=== PATIENT | male | born 1980 | race Caucasian/White ===

== ENCOUNTER 2023-11-06 14:43 | Inpatient (IN) | payer MEDICAID, SELFPAY ==
[2023-11-06] VITALS (9 sets, daily range): BP systolic 169–226; BP diastolic 37–152; PULSE 67–94; RESP 14–27; TEMP 36.4; O2SAT 95–96; BMI 32.1
--- NOTE | ~2023-11-06 | CT_ITS ---
EXAMINATION: CT angio head neck CLINICAL INFORMATION: Left-sided facial droop and dysarthria. COMPARISON: CT head 11/06/2023. TECHNIQUE: [employer] images were obtained. A CT angiogram of the head and neck was performed in the arterial phase after the intravenous administration of 70 mL Omnipaque 350. Pre and delayed postcontrast images of the head were also obtained. 3D images were processed on an independent workstation under concurrent supervision. Arterial stenoses are measured in accordance with NASCET criteria or similar method if applicable. This CT examination was performed using dose optimization techniques as appropriate, including one or more of the following: Automated exposure control, iterative reconstruction, and adjustment of technique factors (mA and/or kVp) according to patient size (this includes techniques or standardized protocols for targeted exams where dose is matched to indication/reason for exam). Fleischner Society criteria for the followup of incidental pulmonary nodules was implemented if appropriate. Total exam dose-length product 1665 mGy-cm FINDINGS: Head: Postcontrast images reveal no abnormal intracranial mass or enhancement. There is no intracranial mass effect or midline shift. Lateral and third ventricles are normal. No hydrocephalus. Scattered nonspecific foci of hypoattenuation are visualized within the periventricular white matter, basal ganglia, thalami, and amarjit that most likely represent a chronic manifestation of small vessel ischemia. [place]-white matter differentiation is otherwise preserved and there is no evidence of acute territorial infarct. The calvarium and skull base are intact. Mastoid air cells and middle ear cavities are well aerated. No active paranasal sinus disease. CT angiogram neck: The air arch apex is normal. Origins of major aortic branches are widely patent. Common carotid arteries and carotid bifurcations are patent. No stenosis of the extracranial internal carotid arteries. The right cervical vertebral artery is hypoplastic and appears occluded at its dural insertion. The dominant left vertebral artery is widely patent. CT angiogram head: Intracranial internal carotid arteries are patent. The left intradural vertebral artery is widely patent and continues as the basilar. Anterior, middle, and posterior cerebral artery complex is are normal. No intracranial or vessel occlusion. The timing of the contrast injection provides adequate opacification of the dural venous sinuses which are patent. Other: Soft tissues of the neck including the thyroid gland are normal. No pathologically enlarged cervical lymph nodes. No mediastinal or axillary adenopathy is visualized within the [id number] of this examination. There is no acute osseous finding. Specifically no worrisome lytic or blastic osseous lesion. Grossly no spinal canal compromise. Lung apices are clear. CT/CT angio head neck IMPRESSION: The right cervical vertebral artery is hypoplastic and appears occluded at its dural insertion. The dominant left vertebral artery is widely patent and continues as the basilar. Otherwise no stenosis of the cervical carotid or left vertebral arteries. No intracranial large vessel occlusion. There are scattered chronic small vessel ischemic changes within the periventricular white matter, basal ganglia, thalami, and amarjit. No evidence of acute territorial infarct or hemorrhage. No abnormal intracranial mass or enhancement.
--- NOTE | ~2023-11-06 | CT_ITS ---
EXAMINATION: CT HEAD WITHOUT CONTRAST CLINICAL INFORMATION: Left-sided facial droop. COMPARISON: None available. TECHNIQUE: Contiguous axial imaging was performed from the skull base to vertex without intravenous administration of contrast. This CT examination was performed using dose optimization techniques as appropriate, variously including the following: *Automated exposure control *Adjustment of mA and/or kV according to patient size (this includes techniques or standardized protocols for targeted exams where dose is matched to indication/reason for exam; i.e. extremities or head) *Use of iterative reconstruction technique DLP: 720 mGy-cm FINDINGS: There is no acute intra-axial, extra-axial bleed, masses or midline shift. There is subtle hypodensity in the left leyva radiata and the left external capsule suggesting lacunar infarction along the white matter tracts but no edema or mass effect. There is lacunar infarction in the left basal ganglia. There is a focal hypodensity left amarjit likely old infarction.. Also visualized is central hypodensity representing punctate cystic areas There is a small polyp or retention cyst left maxillary sinus. Rest the paranasal sinuses and mastoid air cells are well-aerated. CT/CT head/brain wo IV con IMPRESSION: Left Leyva radiata and left external capsule density suggestive of lacunar infarction of indeterminate age. This could explain patient's left facial droop Lacunar infarction left amarjit with mild heterogeneity in the central amarjit as well.
--- NOTE | ~2023-11-06 | MR_ITS ---
EXAMINATION: MR BRAIN WITHOUT CONTRAST CLINICAL INFORMATION: Cerebrovascular accident. COMPARISON: CTA head and neck from 11/06/2023. TECHNIQUE: Limited MRI of the brain was obtained without contrast. Only motion degraded sagittal T1-weighted imaging was obtained. The patient was unable to tolerate the remainder of the exam at this time. MR/MR head/brain wo con FINDINGS/IMPRESSION: Limited motion degraded exam. Multiple lacunar infarcts are noted within the central amarjit, left lentiform nucleus, and bilateral thalamic. The ventricles and sulcal spaces are proportional. No midline shift. No demonstrated abnormal mass effect. The cerebellar tonsils are normally positioned.
--- NOTE | ~2023-11-06 | US_ITS ---
EXAMINATION: US ABDOMEN LIMITED CLINICAL INFORMATION: Transaminitis. Right upper quadrant pain. COMPARISON: None available. TECHNIQUE: Real-time imaging of the right upper quadrant abdominal viscera. Limited visualization due to bowel gas. FINDINGS: PANCREAS: Poorly visualized due to bowel gas. LIVER: Increased hepatic parenchymal heterogeneity and echogenicity which could be associated with hepatic steatosis or hepatocellular disease and substantially limits visualization. GALLBLADDER: No gallstones. No gallbladder wall thickening. COMMON BILE DUCT: Not visualized. RIGHT KIDNEY: No hydronephrosis. No renal calculi. Limited visualization. The kidney measures 11.0 cm in maximum dimension. FREE FLUID: None. US/US abdomen limited IMPRESSION: Increased hepatic parenchymal heterogeneity and echogenicity which could be associated with hepatic steatosis or hepatocellular disease and substantially limits visualization.
--- NOTE | 2023-11-06 15:17 | ED_ITS ---
HPI - General Adult General Chief complaint: Neuro Symptoms/Deficit Stated complaint: facial swelling Time Seen by Provider: 11/06/23 16:00 Source: patient and family Mode of arrival: ambulatory Limitations: no limitations History of Present Illness HPI narrative: 43 yo male with no PMH but has not seen a doctor in at least 2+ years, he is not a smoker but drinks on the weekend. He denies trauma or falls. Went to bed normal on Tuesday night and woke up on Tuesday AM with L sided lower facial droop and difficulty speaking. He finally decided to come tonight to get it checked out his symptoms have been > 24 hours. He has no known stroke in the past. MD complaint: slurred speech, facial droop Onset (ago): hour(s) (> 24 hours) Location: face and mouth Radiation: non-radiation Severity: moderate Relieving factors: none Exacerbating factors: other (trying to talk or drink) Associated symptoms: denies other symptoms Treatments prior to arrival: none Related Data Allergies Allergy/AdvReac Type Severity Reaction Status Date / Time No Known Allergies Allergy Verified 11/06/23 15:24 Review of Systems 2 Review of Systems: Constitutional : No Fever, No Chills, No Fatigue ENT/Mouth : No sore throat, No Rhinorrhea Eyes: No Eye Pain, No Swelling, No Redness Cardiovascular : No Chest Pain, No SOB, No Dyspnea on Exertion Respiratory : No Cough, No Sputum Gastrointestinal : No Nausea, No Vomiting, No Diarrhea, No abdominal Pain Genitourinary : No Dysuria, No Urinary Frequency, No Hematuria, Musculoskeletal : No joint pain, No Myalgias, No Joint Swelling Skin : No Skin Lesions, No rash Neuro : No Weakness, No Numbness, No Dizziness, no Headache, pos facial droop, pos slurred speech Psych : No Anxiety/Panic, No Depression All other systems reviewed and are negative [facility] Past Medical History Attestation statement: The following information was validated with the patient. Medical History No pertinent past medical history Social History Social History Patient Tobacco Use Status: Never used Tobacco Use of substances other than those prescribed or required for medical reasons: No Advance Directives: No Advance Directives Information Provided: No Physical Exam ED Vital Signs: Vital Signs - 24 hr 11/06/23 15:17 11/06/23 16:45 11/06/23 16:58 Temperature 97.6 F Pulse Rate 94 67 69 Respiratory Rate 16 18 18 Blood Pressure 224/152 H 216/121 H 221/37 H Pulse Oximetry 95 96 95 Oxygen Delivery Method Room Air Room Air Room Air 11/06/23 17:24 11/06/23 17:41 11/06/23 18:32 Temperature Pulse Rate 67 67 78 Respiratory Rate 20 22 H 27 H Blood Pressure 216/127 H 222/132 H 211/135 H Pulse Oximetry 96 96 95 Oxygen Delivery Method Room Air Room Air 11/06/23 18:45 Temperature Pulse Rate 80 Respiratory Rate 14 Blood Pressure 183/130 H Pulse Oximetry 95 Oxygen Delivery Method Room Air BMI result Body Mass Index 32.1 Appearance: Alert. Oriented X3. No acute distress. Eyes: Pupils equal, round and reactive to light. ENT: Pharynx normal. Neck: Normal inspection. Neck supple. CVS: Normal heart rate and rhythm. Pulses normal. Respiratory: No respiratory distress. Breath sounds normal. Abdomen: Soft and nontender. Skin: Skin warm and dry. Normal skin color. Normal skin turgor. Extremities: No lower extremity edema. No calf ttp Neuro: Oriented X 3. UE and LUE intact, he has L lower facial droop with sparing of forehead, no visual field deficits, mild to moderate dysarthria NIH Stroke Scale Internal: Initial- Upon Arrival Level of Consciousness: Alert Level of Consciousness Questions: Answers both questions correctly Level of Consciousness Commands: Performs both tasks correctly Best Gaze: Normal Visual: No visual loss Facial Palsy: Minor paralyis Motor Arm (Right): No drift Motor Arm (Left): No drift Motor Leg (Right): No drift Motor Leg (Left): No drift Limb Ataxia: Absent Sensory: Normal Best Language: No aphasia Dysarthia: Mild to moderate dysarthria Extinction and Inattention: No abnormality Score: 2 Course Course Course Narrative: This is rapid medical exam. Deferred additional HPI, ROS, PE to primary provider. 43 yo male with no known medical history here with complaints of left sided facial droop and slurred speech with waking yesterday morning. VERY hypertensive in triage with no history of same. Will need labs, CT head, EKG VSS Charge nurse aware will need direct bedding spoke to Dr. Brooks regarding vertebral artery - congenital would not cause symptoms Reevaluation(s) Reevaluation #1: very slow titration down of BP - PO aspirin ordered. Reevaluation #2: no response to labetalol will try hydralazine PO amlodipine given as well he is crying after the stroke dx will give ativan as well he is hysterical at points could be contributing Reevaluation #3: BP finally down to 183 will admit Medications Administered Discontinued Medications Generic Name Dose Route Start Last Admin Trade Name Antolin PRN Reason Stop Dose Admin Amlodipine Besylate 5 mg 11/06/23 17:43 11/06/23 17:57 Amlodipine Besylate 5 Mg Tablet PO 11/06/23 17:44 5 mg ONCE ONE Administration Protocol Aspirin 325 mg 11/06/23 16:38 11/06/23 16:52 Aspirin Enteric Coated 325 Mg Tablet.Dr MANLEY 11/06/23 16:39 325 mg ONCE ONE Administration Hydralazine HCl 10 mg 11/06/23 18:29 11/06/23 18:35 Hydralazine Hcl 20 Mg/Ml Vial IVPUSH 11/06/23 18:30 10 mg ONCE ONE Administration Protocol Iohexol 100 ml 11/06/23 16:44 11/06/23 16:44 Iohexol 350 Mg/Ml 100 Ml Infus..Btl IV 11/06/23 16:45 70 ml ONCE ONE Administration Labetalol HCl 5 mg 11/06/23 16:18 11/06/23 16:43 Labetalol Hcl 100 Mg/20 Ml Vial IVPUSH 11/06/23 16:19 5 mg ONCE ONE Administration Labetalol HCl 5 mg 11/06/23 17:00 11/06/23 17:10 Labetalol Hcl 100 Mg/20 Ml Vial IVPUSH 11/06/23 17:01 5 mg ONCE ONE Administration Labetalol HCl 5 mg 11/06/23 17:25 11/06/23 17:41 Labetalol Hcl 100 Mg/20 Ml Vial IVPUSH 11/06/23 17:26 5 mg ONCE ONE Administration Labetalol HCl 5 mg 11/06/23 17:55 11/06/23 17:59 Labetalol Hcl 100 Mg/20 Ml Vial IVPUSH 11/06/23 17:56 5 mg ONCE ONE Administration Lorazepam 1 mg 11/06/23 17:55 11/06/23 18:05 Lorazepam 2 Mg/Ml Vial IVPUSH 11/06/23 17:56 1 mg STAT STA Administration Medical Decision Making Medical Decision Making [facility] Narrative: 43 yo male with no known PMH but does not go to the doctors he is here with facial droop and dysarthria with markedly high BPs onset > 24 hours ago he is not a candidate for either TNK or thrombectomy (low susp for LVO) given onset > 24 hours. At this time will obtain labs, CT head CTA and very mildly try to lower the BP goal 180 given window > 24 from onset. Will start on aspirin and plan to admit once BP under control. Suspect uncontrolled HTN caused lacunar infarct family initially hoped this was bells palsy but I explained unlikely given presentation and dysarthria. Differential Diagnosis Differential Diagnoses: The differential diagnosis associated with the presentation includes HTN emergency, CVA, ICH Admission/Observation Consideration of admission/observation: Escalation of care including admission/observation considered admit for stroke workup Consult Healthcare Provider Management of the patient was discussed with: Hospitalist (will admit) Lab Data [facility] Lab Attestation statement: I reviewed the patient's lab results. 11/06/23 15:41 11/06/23 15:41 Labs: Lab Results 11/06/23 Range/Units 15:41 WBC 4.9 (4.8-10.8) X10*3/uL RBC 5.30 (4.60-5.80) X10*6/uL Hgb 17.7 (14.0-18.0) g/dl Hct 48.6 (42.0-52.0) % MCV 91.7 (80.0-98.0) fL MCH 33.4 H (27.0-33.0) pg MCHC 36.4 H (31.0-36.0) g/dl RDW 11.7 (11.0-16.0) % Plt Count 200 (160-400) X10*3/uL MPV 9.6 (9.4-12.4) fL Immature Gran % (Auto) 0.2 (0.0-0.4) % Neut % (Auto) 64.7 (45-73) % Lymph % (Auto) 24.9 (20-40) % [place] % (Auto) 9.0 (2-11) % Eos % (Auto) 0.6 (0-4) % Baso % (Auto) 0.6 (0-2) % Lymph # (Auto) 1.2 (1.2-4.9) X10*3/uL [place] # (Auto) 0.4 (0.1-1.2) X10*3/uL Eos # (Auto) 0.0 (0.0-0.4) X10*3/uL Baso # (Auto) 0.0 (0.0-0.2) X10*3/uL Abs Immat Gran (auto) 0.01 (0.00-0.03) X10*3/uL Absolute Neuts (auto) 3.2 (2.0-8.3) x10*3/uL Absolute Nucleated RBC 0.000 (0.0-0.012) X10*3/uL Nucleated RBC % (auto) 0.0 (0.0-0.2) /100WBC PT 12.6 (11.1-13.3) SEC INR 1.0 (0.9-1.1) Sodium 140 (135-145) mmol/L Potassium 3.7 (3.3-5.1) mmol/L Chloride 105 (96-108) mmol/L Carbon Dioxide 23 (22-29) mmol/L Anion Gap 16 (12-20) BUN 13 (9-16) mg/dL Creatinine 0.96 (0.5-1.4) mg/dL Estim Creat Clear Calc 121.9 Estimated GFR > 60 Random Glucose 114 (60-115) mg/dL Calcium 10.0 (8.4-10.2) mg/dL Magnesium 2.4 (1.6-2.6) mg/dL Total Bilirubin 1.2 H (0.0-1.0) mg/dL Direct Bilirubin 0.4 (0.0-0.5) mg/dL AST 77 H (5-37) U/L ALT 151 H (0-40) U/L Alkaline Phosphatase 93 (39-117) U/L Troponin I High Sens 15.9 (<3.5-35.0) ng/L Total Protein 8.8 H (6.5-8.0) g/dL Albumin 4.8 (3.5-5.0) g/dL Ethyl Alcohol < 10 mg/dL Independent Interpretation I performed an independent interpretation of an: EKG and CT Scan (+ CVA) Interpretation: Rate: 74 Rhythm: NSR [place]: left, LVH Normal P waves. Normal ABI. Normal QRS complex. ST T wave : no VIKA, inverted T waves in I and aVL, V5/V6 consistent with strain from LVH qTC: normal prior studies: no prior The study has been interpreted contemporaneously by me. . Radiology Impression Discussion of test interpretation with radiology: I have reviewed the radiologist's reading. Independent Historian Clinical information obtained from an independent historian. History obtained from or confirmed by: Parent Critical Care Time Critical Care Time Critical Care Time: Yes Total Critical Care Time: 60 Attestation: IV meds for BP control, stroke workup, admission I attest to this time spent taking care of the patient Discharge Plan Discharge Clinical Impression: Hypertension, uncontrolled Cerebrovascular accident Qualifiers: CVA mechanism: unspecified Qualified Code(s): I63.9 - Cerebral infarction, unspecified Patient Disposition: Admitted As Inpatient
--- NOTE | 2023-11-06 15:25 | ECG_ITS ---
Test Reason : HYPERTENSION Blood Pressure : / mmHG Vent. Rate : 074 BPM Atrial Rate : 074 BPM P-R Int : 198 ms QRS Dur : 112 ms QT Int : 428 ms P-R-T Axes : 026 -05 116 degrees QTc Int : 475 ms Normal sinus rhythm Possible Left atrial enlargement Left ventricular hypertrophy with repolarization abnormality ( R in aVL , Vincent product ) Cannot rule out Septal infarct , age undetermined Abnormal ECG No previous ECGs available Referred By: Jennifer Merrill Electronically Signed By:Emerson Suarez
[2023-11-06 15:45] LABS: MANUAL DIFF FLAG NO
[2023-11-06 15:46] LABS: Basophils Percent Auto 0.6 % (0-2); Eosinophils Percent Auto 0.6 % (0-4); Hematocrit 48.6 % (42.0-52.0); Hemoglobin 17.7 g/dl (14.0-18.0); Imm Gran Abs Auto 0.01 X10*3/uL (0.00-0.03); Imm Gran Pct Auto 0.2 % (0.0-0.4); Lymphocytes Absolute Auto 1.2 X10*3/uL (1.2-4.9); Lymphocytes Percent Auto 24.9 % (20-40); Mean Corpuscular HGB Conc 36.4 g/dl (31.0-36.0); Mean Corpuscular Hemoglobin 33.4 pg (27.0-33.0); Mean Corpuscular Volume 91.7 fL (80.0-98.0); Mean Platelet Volume 9.6 fL (9.4-12.4); Monocytes Absolute Auto 0.4 X10*3/uL (0.1-1.2); Neutrophils Absolute Auto 3.2 x10*3/uL (2.0-8.3); Neutrophils Percent Auto 64.7 % (45-73); Platelet Count 200 X10*3/uL (160-400); Red Cell Distribution Width 11.7 % (11.0-16.0); White Blood Count 4.9 X10*3/uL (4.8-10.8)
[2023-11-06 15:52] LABS: Prothrombin Time 12.6 SEC (11.1-13.3)
[2023-11-06 16:12] LABS: Troponin-I High Sensitivity 15.9 ng/L (<3.5-35.0)
[2023-11-06 16:17] LABS: Alanine Aminotransferase 151 U/L (0-40); Albumin Level 4.8 g/dL (3.5-5.0); Alkaline Phosphatase 93 U/L (39-117); Anion Gap 16 (12-20); Aspartate Amino Transferase 77 U/L (5-37); Bilirubin Direct 0.4 mg/dL (0.0-0.5); Bilirubin Total 1.2 mg/dL (0.0-1.0); Blood Urea Nitrogen 13 mg/dL (9-16); Carbon Dioxide 23 mmol/L (22-29); Chloride 105 mmol/L (96-108); Creatinine Clr Calc Pharmacy 121.9; Estimated Glomerular Filt Rate > 60; Glucose Random 114 mg/dL (60-115); Magnesium 2.4 mg/dL (1.6-2.6); Potassium 3.7 mmol/L (3.3-5.1); Sodium 140 mmol/L (135-145); Total Protein 8.8 g/dL (6.5-8.0)
[2023-11-06] MEDS: Labetalol HCL 100 MG/20 ML VIAL IVPUSH ×4 (16:43→17:59)
[2023-11-06] MEDS: iohexoL 350 MG/ML 100 ML INFUS..BTL IV (16:44)
[2023-11-06] MEDS: Aspirin Enteric Coated 325 MG TABLET.DR PO (16:52)
[2023-11-06 16:59] LABS: Ethanol < 10 mg/dL
[2023-11-06] MEDS: amLODIPine Besylate 5 MG TABLET PO (17:57)
[2023-11-06] MEDS: LORazepam 2 MG/ML VIAL 1 MG IVPUSH ×2 (18:05→23:31)
[2023-11-06] MEDS: hydrALAZINE HCl 20 MG/ML VIAL 10 MG IVPUSH (18:35)
--- NOTE | 2023-11-06 18:54 | P.HPHOSP_ITS ---
History of Present Illness Date of Service: 11/06/23 Attending physician on admission: Hima Parr Chief Complaint: Left facial droop, dysarthria Pt is a 43-year-old male with no known significant PMH not on any home medications who has not seen a PCP in 15+ years who presents to the ED for evaluation of left-sided facial droop and dysarthria. Patient states he went to bed on Tuesday night in his normal state of health but when he awoke on Tuesday morning he found he had left-sided facial droop and difficulty speaking. Denies numbness and tingling in extremities or hemiparesis. No headache or acute vision changes. Patient did not present to the emergency department yesterday as he believed his condition was caused by his wisdom teeth. Patient states he could feel his teeth were not lining up properly and he thought this was making it difficult to speak. Presented to the ED today after symptoms persisted this morning and after speaking with his parents who encouraged him to get evaluated. Denies chest pain/pressure, palpitations. No shortness of breath. Has a remote history of smoking, since stopped ?years? ago. Does drink on the weekends, on Tuesday, Tuesday, and Tuesday. Denies any illicit substances. Of note, patient emotionally labile in the ED, often uncontrollably crying. Has also experienced extremely high blood pressures, up to 224/152. In the ED pt was afebrile, but with elevated heart rate up to 90 tachypnea up to 27, and hypertensive up to 224/152. Labs were significant for bilirubin 1.2, AST 77, ALT 151, otherwise grossly unremarkable. Ethyl alcohol level <10. Drug tox screen pending. CT?of showed left han radiata and left external capsule density suggestive of lacunar infarction of indeterminate age. Also found a lacunar infarction of left amarjit with mild heterogenicity in the central amarjit as well. 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 Did find scattered chronic small vessel ischemic changes within the periventricular white matter, basal ganglia, thalami, and amarjit, but no evidence of intracranial large vessel occlusion. No evidence of acute territorial infarct or hemorrhage, and no abnormal intracranial mass or enhancement. EKG demonstrated Normal sinus rhythm with possible left atrial enlargement and left ventricular hypertrophy, but no significant ST elevations or depressions. Pt was treated with aspirin, labetalol, amlodipine, hydralazine, and Ativan. Pt will be admitted to the hospital for treatment and further evaluation of CVA. Review of Systems 2 Review of Systems: Left-sided facial droop Dysarthria Denies difficulty word-finding No headache, acute vision changes Denies numbness or tingling in extremities, No hemiparesis Denies chest pain/pressure, palpitations No shortness of breath PMFSH Medical History No pertinent past medical history Social History Patient Tobacco Use Status: Never used Tobacco Use of substances other than those prescribed or required for medical reasons: No Advance Directives: No Advance Directives Information Provided: No Meds Allergies Allergy/AdvReac Type Severity Reaction Status Date / Time No Known Allergies Allergy Verified 11/06/23 15:24 Physical Exam 2 Vital Signs and Narrative: Vital Signs: Last Vital Signs Temp 97.6 F 11/06/23 15:17 Pulse 80 11/06/23 18:45 Resp 14 11/06/23 18:45 BP 183/130 H 11/06/23 18:45 Pulse Ox 95 11/06/23 18:45 O2 Del Method Room Air 11/06/23 18:45 BMI result Body Mass Index 32.1 Constitutional: Alert, emotionally labile, in no acute distress. Mental Status: Oriented to person, place and time. Eyes: Pupils are equal, round, and reactive to light. Ear, Nose, and Throat: Oropharynx clear, mucous membranes moist. Ears and nose without deformities. Trachea midline. Respiratory: Clear to auscultation bilaterally. No wheezing, rales, or rhonchi. Cardiovascular: S1, S2 regular. No murmurs, rubs, or gallops. Gastrointestinal: Abdomen soft, non-tender, non-distended. Normal bowel sounds. Neurologic: Left-sided facial droop, left tongue deviation. Unable to fully open mouth. Dysarthria/mumbled speech. Moves all extremities spontaneously. Skin: Warm, dry. Musculoskeletal: No cyanosis or clubbing. Extremities: No edema. Psychiatric: Emotionally labile. Results Labs 11/06/23 15:41 11/06/23 15:41 Labs: Laboratory Results - last 24 hr 11/06/23 15:41 MCV 91.7 MCH 33.4 H MCHC 36.4 H RDW 11.7 Plt Count 200 MPV 9.6 Immature Gran % (Auto) 0.2 Neut % (Auto) 64.7 Lymph % (Auto) 24.9 [place] % (Auto) 9.0 Eos % (Auto) 0.6 Baso % (Auto) 0.6 Lymph # (Auto) 1.2 [place] # (Auto) 0.4 Eos # (Auto) 0.0 Baso # (Auto) 0.0 Abs Immat Gran (auto) 0.01 Absolute Neuts (auto) 3.2 Absolute Nucleated RBC 0.000 Nucleated RBC % (auto) 0.0 PT 12.6 INR 1.0 Anion Gap 16 Estim Creat Clear Calc 121.9 Estimated GFR > 60 Random Glucose 114 Calcium 10.0 Magnesium 2.4 Total Bilirubin 1.2 H Direct Bilirubin 0.4 AST 77 H ALT 151 H Alkaline Phosphatase 93 Total Protein 8.8 H Albumin 4.8 Ethyl Alcohol < 10 Imaging Radiologist's Impressions: Impressions Head CT 11/06/23 16:08 IMPRESSION: Left Han radiata and left external capsule density suggestive of lacunar infarction of indeterminate age. This could explain patient's left facial droop Lacunar infarction left amarjit with mild heterogeneity in the central amarjit as well. Head/Neck CTA 11/06/23 16:33 IMPRESSION: The right cervical vertebral artery is hypoplastic and appears occluded at its dural insertion. The dominant left vertebral artery is widely patent and continues as the basilar. Otherwise no stenosis of the cervical carotid or left vertebral arteries. No intracranial large vessel occlusion. There are scattered chronic small vessel ischemic changes within the periventricular white matter, basal ganglia, thalami, and amarjit. No evidence of acute territorial infarct or hemorrhage. No abnormal intracranial mass or enhancement. Assessment and Plan (1) Hypertension, uncontrolled: Status: Acute (2) Cerebrovascular accident: Qualifiers: CVA mechanism: unspecified Qualified Code(s): I63.9 - Cerebral infarction, unspecified Status: Acute Plan Pt is a 43-year-old male with no known significant PMH not on any home medications who has not seen a PCP in 15+ years who presents to the ED for evaluation of left-sided facial droop and dysarthria. Pt will be admitted to the hospital for treatment and further evaluation of CVA. CVA Pt with left-sided facial droop, dysarthria upon waking Tuesday morning; not back to baseline CT?of head w/ left han radiata and left external capsule density suggestive of lacunar infarction of indeterminate age. 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 Parr DVT Prophylaxis: Lovenox Pt will require a hospitalization of at least two nights for treatment and further evaluation of CVA with additional imaging, close monitoring, and specialist consultation. Quality Stroke Does the patient have a stroke diagnosis?: Yes Reason for No Anti-thrombotic by Day Two: Contraindicated (Last known well time 30+ hours prior. Outside of tNK therapeutic window.) VTE Prior VTE?: No VTE Risk Level:: Medical - moderate - high VTE Device Contraindication: Treatment Not Indicated VTE Drug Contraindication: N/A - Med Ordered
--- NOTE | 2023-11-06 19:55 | PC.NURSE ---
Olamide PA to bedside for admission eval. pt denies cp/sob/n/v/d/abd pain/TOUSSAINT/blurry vision. Bp remains elevated per PA will consult with neuro no new orders at this time. per pa goal to keep bp approx sbp 180. awaiting admit orders. family at bedside. per pt and family no neuro changes since arrival.
--- NOTE | 2023-11-06 20:23 | PC.NURSE ---
pt axox4. ambulatory with steady gait. neuros and vitals as documented. family and pt educated on plan of care; denies questions/concerns at this time. pt tearful about situation. assisted to sit at bedside as pt states he was uncomfortable in stretcher. call infante within reach.
--- NOTE | 2023-11-06 20:29 | PC.NURSE ---
Addendum entered by Pamella Douglas 11/06/23 20:32: to hold po meds as well per Julia PÉREZ. Original Note: pt failed swallow eval will keep pt npo princess PÉREZ aware. bp lower Princess PÉREZ aware no further orders at this time.
[2023-11-06 20:33] LABS: Cholesterol 176 mg/dL (<200); HDL Cholesterol 48 mg/dL (>40); LDL Cholesterol Calculated 113 mg/dL (<100); Triglycerides 78 mg/dL (<150)
[2023-11-06] MEDS: Enoxaparin Sodium 40 MG/0.4 ML SYRINGE SUBCUT (20:47)
[2023-11-07] VITALS (14 sets, daily range): BP systolic 154–206; BP diastolic 88–135; PULSE 67–95; RESP 15–22; TEMP 35.6–37.2; O2SAT 95–98
[2023-11-07] MEDS: 0.9 % Sodium Chloride Flush 3 ML SYRINGE IVFLUSH ×4 (01:09→21:22)
--- NOTE | 2023-11-07 04:34 | PC.NURSE ---
Patient is sleeping in a hospital bed. BP 180-190/102, P 70-80, O2 Sat 97-98% RA. Patient continues to deny any pain. Neuro assessment completed. Patient is alert and oriented x3, PERRL, patient obeys commands, hand grasp is equal bilaterally. Patient continues to present with mild left facial droop and gurgling speech. Patient failed bedside swallow eval and NPO at present. Patient is able to make his needs known, call infante within patient's reach.
[2023-11-07 05:30] LABS: Amphetamine Screen Urine Not Detected (Not Detect); Barbiturates, Urine Not Detected (Not Detect); Benzodiazepines Screen Urine Not Detected (Not Detect); Cannabinoid Screen Urine POSITIVE (Not Detect); Cocaine Screen Urine Not Detected (Not Detect); Fentanyl, urine Not Detected (Not Detect); Opiate Screen Urine Not Detected (Not Detect); Phencyclidine Screen Urine Not Detected (Not Detect)
[2023-11-07] MEDS: hydrALAZINE HCl 20 MG/ML VIAL 10 MG IVPUSH (06:17)
--- NOTE | 2023-11-07 07:00 | CA_ITS ---
Transthoracic Echocardiogram Patient (Last, First, Middle): Loco Guadalupe J Gender: Male Date of : 1980 Age: 43 Procedure Date: 11/07/2023 Procedure Type: Transthoracic Echocardiogram Location: ER Height: 180.34 cm Weight: 103.87 kg BSA: 2.23 m2 Heart Rate: 77 bpm BP: 171 / 105 mmHg Cattle Dealer: SB Referring MD: Genie PÉREZ Symptoms: CVA Study Quality: Fair ECG Rhythm: Sinus Conclusions: - Normal left ventricular size and systolic function. There is moderately increased left ventricular wall thickness. The visually estimated ejection fraction is between 65-70%. - E/E prime ratio is between 8 and 15 consistent with indeterminate filling pressures. There is severe septal asymmetric hypertrophy. - Normal right ventricular cavity size and systolic function. - There is mild dilatation of the sinuses of Valsalva measuring 3.80 cm. - There is no evidence of interatrial shunt by agitated saline. Findings Left Ventricle Normal left ventricular size and systolic function. There is moderately increased left ventricular wall thickness. The visually estimated ejection fraction is between 65-70%. There is no evidence of regional wall motion abnormalities. Abnormal diastolic function is noted. Spectral Doppler is indicative of an impaired relaxation filling pattern. E/E prime ratio is between 8 and 15 consistent with indeterminate filling pressures. There is severe septal asymmetric hypertrophy. Right Ventricle Normal right ventricular cavity size and systolic function. Atria The left atrium is normal in size. There is no evidence of interatrial shunt by agitated saline. Aortic Valve Normal aortic valve structure and function. There is no aortic valve stenosis. There is no aortic valve regurgitation. Mitral Valve Normal mitral valve structure and function. There is no mitral valve regurgitation. There is no mitral valve stenosis. Pulmonic Valve The pulmonic valve is likely normal. Tricuspid Valve Normal tricuspid valve structure and function. There is no tricuspid valve regurgitation. Tricuspid regurgitation envelope is inadequate for calculation of right ventricular systolic pressure. Normal right atrial pressure. Great Vessels There is mild dilatation of the sinuses of Valsalva measuring 3.80 cm. The visualized portions of the pulmonary artery and branches are normal. Venous The inferior vena cava is normal in size and collapses greater than 50% with inspiration. Pericardium/Pleural There is no evidence of pericardial effusion. Prior Study Comparison No prior study available for comparison. Measurements 2D Linear Measurements IVSd: 1.86 0.6-0.9/0.6-1.0 cm LVIDd: 4.14 3.9-5.3/4.2-5.9 cm LVIDd Index: 1.86 2.4-3.2/2.2-3.1 cm/m2 LVIDs: 2.97 2.0-3.6 cm LVPWd: 1.33 0.7-1.1 cm LA Diam: 4.20 2.7-3.8/3.0-4.0 cm LAIDs Index: 1.88 1.5-2.3 cm/m2 LV Mass: 335.79 67-162/88-224 g LV Mass Index: 150.58 43-95/49-115 g/m2 LVOT Diam: 2.50 3.0+(-)1.3 cm 2D Systolic Function EF 2C: 57.20 >55% Mitral Valve MV Pk E: 0.33 MV PK A: 0.72 MV Decel Time: 241.00 E/A: 0.50 E'Lateral: 3.81 E'Medial: 3.48 E/E' Med: 9.50 E/E' Lat: 8.70 PHT: 71.00 MVA PHT: 3.10 Decel Crane: 1.37 Aortic Valve AoV Pk Jairon: 1.32 AoV Pk Grad: 7.00 ORIANA: 3.43 LVOT LVOT Pk Jairon: 1.14 LVOT Mn Jairon: 0.78 LVOT VTI: 0.20 LVOT Pk Grad: 5.00 LVOT Mn Grad: 3.00 LVOT Diam: 2.50 LVOT Area: 4.91 Diastolic Function MV Pk E: 0.33 MV Pk A: 0.72 E/A: 0.50 E'Medial: 3.48 E/E' Med: 9.50 E' Laterial: 3.81 E/E' Lat: 8.70 Right Ventricle TAPSE (mm): 32.10 TVS' Jairon: 18.50 Tricuspid Valve RA Press: 3.00 Great Vessels Aorta Sinus of Valsalva: 3.80 2.0-3.5 cm Ao Asc: 3.20 2.1-3.4 cm Pulmonary Valve PV Pk Jairon: 1.05 Peak PV Grad: 4.00 Updated in Other Vendor System with Status of Final Emerson Suarez MD electronically signed on 11/08/2023 11:49:44 AM with status of Final
[2023-11-07 07:06] LABS: Estimated Average Glucose 94 mg/dL; Hemoglobin A1c % 4.9 % (<6.0)
--- NOTE | 2023-11-07 08:36 | MHC.CM.PN ---
Addendum entered by Vonda Ceballos RN 11/07/23 10:02: CORRECTION: PATIENT'S MOTHER ARRIVED PATIENT DOES NOT HAVE A . HE LIVES IN [place] WITH PARENTS UPSTAIRS. PATIENT WENT TO BED ALEXI NIGHT, WOKE UP WITH DEFICITS, AND DROVE HIMSELF AND PARENTS HERE. NO HPC IS ON FILE AND ONE CAN BE DONE WHEN PATIENT IS MORE ALERT. MOM,. CELINA, IS CONCERNED ABOUT INSURANCE, HE IS CURRENTLY UNDERGOING ARBITRATION FOR IT. FACE SHEET TO BE FAXED TO FINANCIAL COUNSELOR Original Note: PATIENT CURRENTLY ASLEEP AND NOT RESPONDING TO ATTEMPTS TO ASSESS. PER REVIEW OF CHART, HE LIVES WITH HIS AND HAS BEEN INDEPENDENT AT BASELINE CASE MANAGEMENT TO RE-ATTEMPT WHEN ARRIVES.
--- NOTE | 2023-11-07 09:31 | PC.NURSE ---
attempted to re evaluate patient swallow to administer PO meds. patient swallowed from spoon with out difficulty but when given sip from cup did cough. PA made aware and will hold PO meds for now. will give IV meds for BP.
--- NOTE | 2023-11-07 09:33 | PC.NURSE ---
order taken from Angela PÉREZ for 10mg IV labetalol.
--- NOTE | 2023-11-07 09:34 | PHA.MEDREC ---
Pharmacy Consult ? Medication Reconciliation Pharmacy has completed the medication reconciliation. Spoke to patient and he's not on any medication.
[2023-11-07] MEDS: Labetalol HCL 100 MG/20 ML VIAL 10 MG IVPUSH ×2 (09:36→17:12)
--- NOTE | 2023-11-07 10:16 | MHC.CM.PN ---
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
--- NOTE | 2023-11-07 11:10 | HO.PM.IMPN ---
Subjective Subjective Date of Service: 11/07/23 Interval History: Seen in follow up for uncontrolled HTN, CVA Interval history: Pt upset he is still in the ER, wants to leave. BP remains elevated. Still with facial droop, slurred speech, dysphagia Review of Systems General: No fevers, malaise, unintentional weight loss Cardiovascular: No chest pain, palpitations, or leg edema Respiratory: No shortness of breath, wheezing, cough GI: No abdominal pain, nausea, vomiting, diarrhea Neuro: No headaches, focal weakness, paresthesias. +slurred speech, +left facial droop, +dysphagia Skin: No rashes or lesions Physical Exam Vital Signs: Vital Signs: Last Vital Signs Temp 98.9 F 11/07/23 04:22 Pulse 70 11/07/23 10:10 Resp 16 11/07/23 09:27 BP 160/88 H 11/07/23 10:10 Pulse Ox 98 11/07/23 04:22 O2 Del Method Room Air 11/07/23 04:22 BMI result Body Mass Index 32.1 Constitutional - Awake and Alert, No apparent distress Eyes - PERRLA, EOMI Cardiovascular - S1S2, RRR, No edema Respiratory - Normal lung expansion, Normal respiratory effort, No respiratory distress, CTA bilaterally Gastrointestinal - NT / ND; +BS; No rebound or guarding Extremities - no calf tenderness bilaterally, no swelling Skin - Warm/Dry Neurological - Alert & oriented x3, left sided facial droop slurring speech otherwise CN II-XII in tact, 5/5 strength BUE and BLE Objective Data Active Medications Acetaminophen (Acetaminophen 325 Mg Tablet) 650 mg PO Q6H PRN PRN Reason: Pain, Mild (Pain Scale 1-3) Amlodipine Besylate (Amlodipine Besylate 10 Mg Tablet) 10 mg PO DAILY [facility]; Protocol Last Admin: 11/07/23 09:28 Dose: Not Given Documented By: HECTOR Non-Admin Reason: See Note Comments: patient unable to safely swallow PO. PA aware and is going to order IV BP meds Aspirin (Aspirin Enteric Coated 81 Mg Tablet.) 81 mg PO DAILY [facility] Atorvastatin Calcium (Atorvastatin Calcium 40 Mg Tablet) 40 mg PO BEDTIME [facility] Last Admin: 11/06/23 20:33 Dose: Not Given Documented By: FARHAD Non-Admin Reason: Physician Held Med Benzonatate (Benzonatate 100 Mg Capsule) 100 mg PO TID PRN PRN Reason: Cough Docusate Sodium (Docusate Sodium 100 Mg Capsule) 100 mg PO DAILY PRN PRN Reason: Constipation Enoxaparin Sodium (Enoxaparin Sodium 40 Mg/0.4 Ml Syringe) 40 mg SUBCUT Q24H [facility] Last Admin: 11/06/23 20:47 Dose: 40 mg Documented By: FARHAD Melatonin (Melatonin 3 Mg Tablet) 6 mg PO BEDTIME PRN PRN Reason: Insomnia Ondansetron HCl (Ondansetron Hcl 4 Mg/2 Ml Vial) 4 mg IVPUSH Q8H PRN PRN Reason: Nausea and Vomiting Sodium Chloride (0.9 % Sodium Chloride Flush 3 Ml Syringe) 3 ml IVFLUSH QSHIFT [facility] Last Admin: 11/07/23 09:06 Dose: 3 ml Documented By: HECTOR Labs 11/06/23 15:41 11/06/23 15:41 Labs: Laboratory Results - last 24 hr 11/06/23 11/06/23 11/07/23 15:41 20:10 05:14 MCV 91.7 MCH 33.4 H MCHC 36.4 H RDW 11.7 Plt Count 200 MPV 9.6 Immature Gran % (Auto) 0.2 Neut % (Auto) 64.7 Lymph % (Auto) 24.9 [place] % (Auto) 9.0 Eos % (Auto) 0.6 Baso % (Auto) 0.6 Lymph # (Auto) 1.2 [place] # (Auto) 0.4 Eos # (Auto) 0.0 Baso # (Auto) 0.0 Abs Immat Gran (auto) 0.01 Absolute Neuts (auto) 3.2 Absolute Nucleated RBC 0.000 Nucleated RBC % (auto) 0.0 PT 12.6 INR 1.0 Anion Gap 16 Estim Creat Clear Calc 121.9 Estimated GFR > 60 Random Glucose 114 Estimat Average Glucose 94 Hemoglobin A1c % 4.9 Calcium 10.0 Magnesium 2.4 Total Bilirubin 1.2 H Direct Bilirubin 0.4 AST 77 H ALT 151 H Alkaline Phosphatase 93 Total Protein 8.8 H Albumin 4.8 Triglycerides 78 Cholesterol 176 LDL Cholesterol, Calc 113 H HDL Cholesterol 48 Urine Opiates Screen Not Detected Urine Fentanyl Screen Not Detected Ur Barbiturates Screen Not Detected Ur Phencyclidine Scrn Not Detected Ur Amphetamines Screen Not Detected U Benzodiazepines Scrn Not Detected Urine Cocaine Screen Not Detected U Marijuana (THC) Screen POSITIVE H Ethyl Alcohol < 10 Assessment and Plan (1) Cerebrovascular accident: Status: Acute (2) Hypertension, uncontrolled: Status: Acute Assessment and Plan: Pt is a 43-year-old male with no known significant PMH not on any home medications who has not seen a PCP in 15+ years who presents to the ED for evaluation of left-sided facial droop and dysarthria. Pt will be admitted to the hospital for treatment and further evaluation of CVA. #Acute CVA -slurred speech, left facial droop persists -CT?of head w/ left leyva radiata and left external capsule density suggestive of lacunar infarction of indeterminate age. Also, lacunar infarction of left amarjit with mild heterogenicity in the central amarjit -CTA No evidence of acute territorial infarct or hemorrhage but did show likely right cervical vertebral artery occlusion, as well as scattered chronic small vessel ischemic changes -Aspirin 81 mg daily -Lipid levels controlled. Atorvastatin 40mg daily -MRI of brain w/ contrast per neuro -Echocardiogram -PT/OT and speech evaluation -Neurology input appreciated -Cardiac diet- sr. manager recommending chopped diet, thin liquids, 1:1 feeds, aspiration precautions, pills crushed with puree -Monitor on telemetry #Uncontrolled HTN Given 10mg IV labetalol this am due to uncontrolled htn Eval by COMMERCIAL MAKEUP ARTIST- give amlodipine 10mg daily in crushed in puree monitor bp, monitor on telemtry Full Code Attending:?Dr. Parr DVT Prophylaxis: Lovenox Pt requires ongoing inpt stay due to acute CVA with persistent significant deficits at risk for aspiration and requiring expert consultation as well as further investigation with MRI and echocardiogram and close monitoring and management of uncontrolled htn. Quality Stroke Does the patient have a stroke diagnosis?: Yes Reason for No Anti-thrombotic by Day Two: Contraindicated (Last known well time 30+ hours prior. Outside of tNK therapeutic window.) VTE Prior VTE?: No VTE Risk Level:: Medical - moderate - high VTE Device Contraindication: Treatment Not Indicated VTE Drug Contraindication: N/A - Med Ordered
--- NOTE | 2023-11-07 11:15 | MHC.SL.SWA ---
Speech Pathologist Impression: Risk of aspiration, mild oral phase dysphagia, moderate dysarthria Risk of Aspiration Due to: Neurological Condition Dysphasia Diet Status: Upgrade from NPO, start on NDD3 Liquid Consistency and Strategies for Safe Swallow: Liquid Intake Recommendation: Thin Liquid Intake Strategies: Small Sips Solid Food Consistency: Dietary Recommendations: Chopped/Advanced (NDD3) Additional Modifications to Solid Foods: Oral Medication Intake: Crushed with Puree Please contact the pharmacy regarding appropriate crushable or liquid drug formulations that are available whenever modified delivery is recommended. Compensatory Strategies and Precautions to be Taken for Safe Swallow: Sitting Upright (90 deg) Double Swallow Small Bites and Sips Alternate Liquids/Solids Rate of Ingestion Change Avoid Specific Foods Supervision While Eating and Drinking for Safe Swallow: Total Supervision (1:1) Foods to Avoid: Hard, sticky, or dry foods Swallowing Recommended Treatments: Compens. Strategy Educat. Recommendation for Speech: Inpatient Speech Therapy Comment: Pt w/ mild oral phase dysphagia characterized by slowed mastication pattern and minimal pocketing, as well as moderate dysarthria secondary to notable left facial droop. Frequency/Duration: PRN Date Range for Service Req: Timeline to reassess: [place] Clinican/Clinical Fellow: No Supervisory Statement: I have reviewed and agree with the student/clinical fellow's documentation: N/A Speech Language Pathologist: Neelam Valle M.A., CCC-NURSE PRIVATE DUTY
[2023-11-07] MEDS: Aspirin Enteric Coated 81 MG TABLET.DR PO (11:18)
[2023-11-07] MEDS: amLODIPine Besylate 10 MG TABLET PO (11:18)
[2023-11-07] MEDS: Atorvastatin Calcium 40 MG TABLET PO (11:22)
--- NOTE | 2023-11-07 12:39 | PM.NEUROCN ---
History of Present Illness Data of Consult Service Date: 11/07/23 Primary Care Provider: Unknown Physician HPI Reason for consult: Facial weakness 43 years old man with untreated hypertension not following any physician came to hospital with left-sided facial weakness and difficulty speaking started at least a day before. There was no associated visual symptom dizziness nausea or vomiting. Review of Systems Review of Systems: No recent cold or flu-like illness or trauma. [facility] Past Medical History Medical History No pertinent past medical history Social History Social History Patient Tobacco Use Status: Never used Tobacco Use of substances other than those prescribed or required for medical reasons: No Advance Directives: No Advance Directives Information Provided: No Nutrition Risks: On aspiration precautions service: No Meds Allergies Allergy/AdvReac Type Severity Reaction Status Date / Time No Known Allergies Allergy Verified 11/06/23 15:24 Active Medications: Current Medications Acetaminophen (Acetaminophen 325 Mg Tablet) 650 mg PO Q6H PRN PRN Reason: Pain, Mild (Pain Scale 1-3) Amlodipine Besylate (Amlodipine Besylate 10 Mg Tablet) 10 mg PO DAILY [facility]; Protocol Last Admin: 11/07/23 11:18 Dose: 10 mg Aspirin (Aspirin Enteric Coated 81 Mg Tablet.) 81 mg PO DAILY [facility] Last Admin: 11/07/23 11:18 Dose: 81 mg Atorvastatin Calcium (Atorvastatin Calcium 40 Mg Tablet) 40 mg PO DAILY [facility] Last Admin: 11/07/23 11:22 Dose: 40 mg Benzonatate (Benzonatate 100 Mg Capsule) 100 mg PO TID PRN PRN Reason: Cough Docusate Sodium (Docusate Sodium 100 Mg Capsule) 100 mg PO DAILY PRN PRN Reason: Constipation Enoxaparin Sodium (Enoxaparin Sodium 40 Mg/0.4 Ml Syringe) 40 mg SUBCUT Q24H [facility] Last Admin: 11/06/23 20:47 Dose: 40 mg Melatonin (Melatonin 3 Mg Tablet) 6 mg PO BEDTIME PRN PRN Reason: Insomnia Ondansetron HCl (Ondansetron Hcl 4 Mg/2 Ml Vial) 4 mg IVPUSH Q8H PRN PRN Reason: Nausea and Vomiting Sodium Chloride (0.9 % Sodium Chloride Flush 3 Ml Syringe) 3 ml IVFLUSH QSHIFT [facility] Last Admin: 11/07/23 09:06 Dose: 3 ml Home Medications Medication Instructions Recorded Confirmed Last Taken Type No Known Home Meds 11/06/23 11/06/23 Unknown History Physical Exam Vital Signs: Vital Signs: Last Vital Signs Temp 98.9 F 11/07/23 04:22 Pulse 74 11/07/23 11:18 Resp 22 H 11/07/23 11:18 BP 166/122 H 11/07/23 11:18 Pulse Ox 98 11/07/23 04:22 O2 Del Method Room Air 11/07/23 04:22 BMI result Body Mass Index 32.1 Neuro: Other: He is alert and awake with normal spontaneity of speech fluency comprehension and affect. He has moderate dysarthria. There is moderate left-sided central type facial weakness. There is mild left pronator drift. There is no sensory or visual extinction. Extraocular muscles are intact. Visual mariano are full. Right plantar is extensor. Results Labs 11/06/23 15:41 11/06/23 15:41 Labs: Short CBC 11/06/23 Range/Units 15:41 WBC 4.9 (4.8-10.8) X10*3/uL Hgb 17.7 (14.0-18.0) g/dl Hct 48.6 (42.0-52.0) % Plt Count 200 (160-400) X10*3/uL BMP 11/06/23 15:41 Sodium 140 Potassium 3.7 Chloride 105 Carbon Dioxide 23 BUN 13 Creatinine 0.96 Calcium 10.0 Liver Function 11/06/23 Range/Units 15:41 Total Bilirubin 1.2 H (0.0-1.0) mg/dL Direct Bilirubin 0.4 (0.0-0.5) mg/dL AST 77 H (5-37) U/L ALT 151 H (0-40) U/L Alkaline Phosphatase 93 (39-117) U/L Albumin 4.8 (3.5-5.0) g/dL Head CT revealed chronic left thalamic lacunar type infarct and probably a subacute right thalamic small ischemic infarction. Assessment and Plan (1) Cerebral infarction: Qualifiers: Cerebral infarction mechanism: thrombosis Precerebral and cerebral artery: unspecified cerebral artery Qualified Code(s): I63.30 - Cerebral infarction due to thrombosis of unspecified cerebral artery Status: Acute 43-year-old man with uncontrolled hypertension and atherosclerotic small-vessel disease with chronic left thalamic lacunar type infarct came to hospital with uncontrolled blood pressure and left-sided facial weakness with dysarthria. Imaging reveals subacute right thalamic lesion. He probably had another ischemic infarction. Mainstay of management is proper understanding of his condition, baby aspirin daily, blood pressure control, and statin. An MRI of brain without contrast his also recommend Procedures Date of Service Date of Service: 11/07/23
[2023-11-07 15:34] LABS: Alanine Aminotransferase 134 U/L (0-40); Albumin Level 4.6 g/dL (3.5-5.0); Alkaline Phosphatase 88 U/L (39-117); Anion Gap 16 (12-20); Aspartate Amino Transferase 60 U/L (5-37); Bilirubin Total 1.4 mg/dL (0.0-1.0); Blood Urea Nitrogen 10 mg/dL (9-16); Calcium 9.9 mg/dL (8.4-10.2); Carbon Dioxide 23 mmol/L (22-29); Chloride 104 mmol/L (96-108); Creatinine Clr Calc Pharmacy 139.3; Estimated Glomerular Filt Rate > 60; Glucose Random 132 mg/dL (60-115); Potassium 3.6 mmol/L (3.3-5.1); Sodium 139 mmol/L (135-145); Total Protein 8.7 g/dL (6.5-8.0)
--- NOTE | 2023-11-07 17:05 | PC.NURSE ---
patient refusing to keep cardiac specialist in place
[2023-11-07] MEDS: LORazepam 2 MG/ML VIAL 1 MG IVPUSH ×2 (17:12→22:14)
[2023-11-07] MEDS: Enoxaparin Sodium 40 MG/0.4 ML SYRINGE SUBCUT (21:20)
[2023-11-07] MEDS: Magnesium Hydrox/Alum Hydrox 30 ML ORAL.SUSP PO (22:12)
[2023-11-07] MEDS: Labetalol HCL 100 MG/20 ML VIAL 20 MG IVPUSH (22:14)
[2023-11-08] VITALS (8 sets, daily range): BP systolic 130–152; BP diastolic 70–102; PULSE 72–85; RESP 17–19; TEMP 36.3–37.1; O2SAT 92–97
[2023-11-08] MEDS: Labetalol HCL 100 MG/20 ML VIAL 20 MG IVPUSH (00:21)
[2023-11-08 07:35] LABS: MANUAL DIFF FLAG NO
[2023-11-08 07:48] LABS: Basophils Percent Auto 0.5 % (0-2); Eosinophils Absolute Auto 0.1 X10*3/uL (0.0-0.4); Eosinophils Percent Auto 1.6 % (0-4); Hematocrit 47.5 % (42.0-52.0); Hemoglobin 16.8 g/dl (14.0-18.0); Imm Gran Abs Auto 0.01 X10*3/uL (0.00-0.03); Imm Gran Pct Auto 0.2 % (0.0-0.4); Lymphocytes Absolute Auto 1.4 X10*3/uL (1.2-4.9); Mean Corpuscular HGB Conc 35.4 g/dl (31.0-36.0); Mean Corpuscular Hemoglobin 33.5 pg (27.0-33.0); Mean Corpuscular Volume 94.8 fL (80.0-98.0); Mean Platelet Volume 10.2 fL (9.4-12.4); Monocytes Absolute Auto 0.6 X10*3/uL (0.1-1.2); Monocytes Percent Auto 9.8 % (2-11); Neutrophils Absolute Auto 3.6 x10*3/uL (2.0-8.3); Neutrophils Percent Auto 62.9 % (45-73); Platelet Count 193 X10*3/uL (160-400); Red Blood Count 5.01 X10*6/uL (4.60-5.80); Red Cell Distribution Width 11.8 % (11.0-16.0); White Blood Count 5.7 X10*3/uL (4.8-10.8)
[2023-11-08 08:03] LABS: Alanine Aminotransferase 122 U/L (0-40); Albumin Level 4.3 g/dL (3.5-5.0); Alkaline Phosphatase 83 U/L (39-117); Anion Gap 18 (12-20); Aspartate Amino Transferase 54 U/L (5-37); Bilirubin Total 1.5 mg/dL (0.0-1.0); Blood Urea Nitrogen 15 mg/dL (9-16); Calcium 9.7 mg/dL (8.4-10.2); Carbon Dioxide 22 mmol/L (22-29); Chloride 104 mmol/L (96-108); Creatinine Clr Calc Pharmacy 128.6; Estimated Glomerular Filt Rate > 60; Glucose Random 96 mg/dL (60-115); Potassium 3.6 mmol/L (3.3-5.1); Sodium 140 mmol/L (135-145); Total Protein 8.2 g/dL (6.5-8.0)
[2023-11-08 08:23] LABS: HBS Num1 9.99 mIU/mL (0-7.99); HBc Num1 0.63 S/CO (0.00-0.79); HBsAGNum1 1.06 S/CO (0.00-0.99); Hepatitis B Core Antibody Nonreactive (Nonreactive); ~HepC Num1 0.69 S/CO (0.00-0.79); ~Hepatitis C Antibody Nonreactive (Nonreactive)
[2023-11-08] MEDS: Losartan Potassium 50 MG TABLET PO (08:42)
[2023-11-08] MEDS: amLODIPine Besylate 10 MG TABLET PO (08:43)
[2023-11-08] MEDS: Aspirin Enteric Coated 81 MG TABLET.DR PO (08:43)
[2023-11-08] MEDS: Atorvastatin Calcium 40 MG TABLET PO (08:43)
[2023-11-08] MEDS: 0.9 % Sodium Chloride Flush 3 ML SYRINGE IVFLUSH ×2 (08:43→21:12)
[2023-11-08 09:15] LABS: HBS Num2 9.06 mIU/mL (0-7.99); HBS Num3 9.39 mIU/mL (0-7.99); ~Hepatitis B Surface Antibody GRAYZONE (Nonreactive)
[2023-11-08 09:16] LABS: HBsAGNum2 Nonreactive; HBsAGNum3 Nonreactive; Hepatitis B Surface Antigen NEGATIVE (Negative)
--- NOTE | 2023-11-08 14:58 | MHC.SL.DTX ---
Dysphagia Diet modifications: Last documented Solid diet consistencies: Chopped/Advanced (NDD3) Last documented Liquid consistency: Thin Last documented Medication Administration: Changes made to current diet?: Yes Liquid Consistency and Strategies: Liquid Intake Recommendation: Thin Compensatory Strategies for Safe Swallow: Small Sips Compensatory Strategies for Safe Swallow(b): Sitting Upright (90 deg) Small Bites and Sips Alternate Liquids/Solids Rate of Ingestion Change Oral Check Solid Food Consistency: Dietary Recommendations: Regular Oral Medication Intake: Crushed with Puree Strategies and Precautions to be Taken for Safe Swallow: Sitting Upright (90 deg) Small Bites and Sips Alternate Liquids/Solids Rate of Ingestion Change Oral Check Supervision While Eating and/Drinking: Intermittent Supervision Foods to Avoid: Hard, sticky, or dry foods Swallowing Recommended Treatments: Compens. Strategy Educat. Prognosis for Improvement: Good Recommendation for Speech: Inpatient Speech Therapy Comment: Pt w/ mild oral phase dysphagia characterized by slowed mastication pattern and minimal pocketing, as well as moderate dysarthria secondary to notable left facial droop. Frequency/Duration: PRN Additional Comments: Treatment: Pt seen at bedside with Mother and Father. Pt is lying down and agrees to trial food and drink as well as oral-motor exercises. Pt is repositioned upright. He is complaining of his current recommendations. Oral preparation of a Regular Solid (Cracker) is mildly delayed. Oral cavity inspection after the swallow show mild residue greater on the side of weakness (left). He is cued for lingual sweep which is limited by left-side weakness. He is successful in an oral swish with Thin Liquids which assist to further remove residue. Pt/Family are counseled on the risks of oral pocketing and advice checks after meals and tooth brushing after meals, as needed. Pt demonstrated back oral motor exercises (lip-pucker to smile, cheek puff, lateral tongue movement with and without resistance). Pt is not a candidate for rehab as OT/PT needs are not required. He is with PCP or insurance. He is working on insurance prior to discharge. CM informs that he cannot likely get a PCP new patient visit for 3-4 months, however may have a Neurology follow-up within 7 days of leaving the Hospital. Pt/Family is advised to advocated for Outpatient Speech Therapy at their Neurology follow-up. NURSERY NURSE will continue to follow during admission. Wind Energy Project Manager Clinican/Clinical Fellow: No Supervisory Statement: I have reviewed and agree with the student/clinical fellow's documentation: N/A Speech Language Pathologist: Ray Siu M.A., CCC-NURSERY NURSE
--- NOTE | 2023-11-08 16:08 | MHC.STROKE ---
11/06/23 1443 WALK-IN FROM HOME, CLARIFIED LAST KNOWN WELL WITH FAMILY TO BE 11/04/23 AT 2300, WHEN HE WENT TO BED. HIS DAD SAW HIM AT 1200 THE NEXT DAY AND NOTICED LEFT FACIAL DROOP AND SLURRED SPEECH. HE ENCOURAGED HIM TO GO TO THE HOSPITAL BUT THE PATIENT REFUSED. ON TUESDAY THE PATIENT HAD SIMILAR SYMPTOMS BUT WERE WORSE. HE ADVISED THE PATIENT TO GO TO THE HOSPITAL AND HE ACTUALLY DROVE HERE. HE WAS SEEN BY THE PROVIDER, NIHSS = 2, OUT OF THE WINDOW FOR TNK OR THROMBECTOMY. WE DISCUSSED HIS HOME SETTING AND HE LIVES WITH HIS MOTHER AND FATHER. HE LIVES IN A TWO-FAMILY HOME DOWNSTAIRS FROM THEM. 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 ACCORDING TO THEM DRINKS TUESDAY-Sundays BUT WHEN WE ASKED THE PATIENT HE ALSO ADMITS TO DRINKING DAILY SINCE HE LOST HIS JOB 1 YEAR AGO. HIS TOX SCREEN + FOR MARIJUANA. TODAY WE MET WITH HIM AND REVIEWED HIS DIAGNOSIS, HIS INDIVIDUAL RISK FACTORS, HE GOT ANGRY AND SAID HE WANTED TO LEAVE WHEN WE TALKED ABOUT THE DAILY ETOH, THEN HE CALMED DOWN AND STARTED CRYING UNCONTROLLABLY. WE PROVIDED REASSURANCE AND HOPE. WE EXPLAINED THAT HE CAN GET HELP FROM OUR CARE TEAM, MANAGEMENT WILL WORK ON GETTING HIM INSURANCE AND A PCP, HE IS WILLING TO GO TO OUTPATIENT SPEECH THERAPY. THIS WAS ALL REPORTED TO DR. HATFIELD, IT WAS DECIDED TO WATCH FOR ETOH WITHDRAWAL AND PROVIDE SUPPORTIVE MEDICATIONS. WE ALSO RELAYED THIS INFORMATION TO HIS RN. WE WILL FOLLOW UP WITH HIM TOMORROW. MYSELF AND TRAINING SIMULATION DEVELOPER BOTH WERE PRESENT.
[2023-11-08] MEDS: Thiamine HCL 100 MG TABLET PO (16:20)
[2023-11-08] MEDS: Folic Acid 1 MG TABLET PO (16:21)
--- NOTE | 2023-11-08 17:30 | HO.PM.IMPN ---
Subjective Subjective Date of Service: 11/08/23 Interval History: cva Review of Systems speech somewhat improving,anxious drink 6 packs beer /weekends Physical Exam Vital Signs: Vital Signs: Last Vital Signs Temp 97.9 F 11/08/23 15:00 Pulse 85 11/08/23 15:00 Resp 18 11/08/23 15:00 BP 150/70 H 11/08/23 15:00 Pulse Ox 96 11/08/23 15:00 O2 Del Method Room Air 11/08/23 15:00 BMI result Body Mass Index 32.1 Constitutional - Awake and Alert, No apparent distress Cardiovascular - S1S2, RRR, No edema Respiratory - Normal lung expansion, Normal respiratory effort, No respiratory distress, CTA bilaterally Gastrointestinal - NT / ND; +BS; No rebound or guarding Extremities - no calf tenderness bilaterally, no swelling Skin - Warm/Dry Neurological - Alert & oriented x3, left sided facial droop slurring speech otherwise CN II-XII in tact, 5/5 strength BUE and BLE Objective Data Active Medications Acetaminophen (Acetaminophen 325 Mg Tablet) 650 mg PO Q6H PRN PRN Reason: Pain, Mild (Pain Scale 1-3) Al Hydroxide/Mg Hydroxide (Magnesium Hydrox/Alum Hydrox 30 Ml Oral.Susp) 30 ml PO Q6H PRN PRN Reason: Heartburn Last Admin: 11/07/23 22:12 Dose: 30 ml Documented By: ERICK Amlodipine Besylate (Amlodipine Besylate 10 Mg Tablet) 10 mg PO DAILY [facility]; Protocol Last Admin: 11/08/23 08:43 Dose: 10 mg Documented By: DARBY Aspirin (Aspirin Enteric Coated 81 Mg Tablet.) 81 mg PO DAILY [facility] Last Admin: 11/08/23 08:43 Dose: 81 mg Documented By: DARBY Atorvastatin Calcium (Atorvastatin Calcium 40 Mg Tablet) 40 mg PO DAILY [facility] Last Admin: 11/08/23 08:43 Dose: 40 mg Documented By: DARBY Benzonatate (Benzonatate 100 Mg Capsule) 100 mg PO TID PRN PRN Reason: Cough Docusate Sodium (Docusate Sodium 100 Mg Capsule) 100 mg PO DAILY PRN PRN Reason: Constipation Enoxaparin Sodium (Enoxaparin Sodium 40 Mg/0.4 Ml Syringe) 40 mg SUBCUT Q24H [facility] Last Admin: 11/07/23 21:20 Dose: 40 mg Documented By: MORRIS Folic Acid (Folic Acid 1 Mg Tablet) 1 mg PO DAILY [facility] Last Admin: 11/08/23 16:21 Dose: 1 mg Documented By: DARBY Losartan Potassium (Losartan Potassium 50 Mg Tablet) 50 mg PO DAILY [facility]; Protocol Last Admin: 11/08/23 08:42 Dose: 50 mg Documented By: DARBY Melatonin (Melatonin 3 Mg Tablet) 6 mg PO BEDTIME PRN PRN Reason: Insomnia Ondansetron HCl (Ondansetron Hcl 4 Mg/2 Ml Vial) 4 mg IVPUSH Q8H PRN PRN Reason: Nausea and Vomiting Pharmacy Consult (Consult Rx Etoh Phenob Po Only) 1 each MISCELLANE ONCE PRN; Protocol PRN Reason: Consult order Phenobarbital (Phenobarbital 30 Mg Tablet) 60 mg PO BID [facility]; Protocol Stop: 11/10/23 21:01 Phenobarbital (Phenobarbital 30 Mg Tablet) 30 mg PO BID [facility]; Protocol Stop: 11/12/23 21:01 Phenobarbital (Phenobarbital 30 Mg Tablet) 30 mg PO DAILY [facility]; Protocol Stop: 11/14/23 09:01 Phenobarbital Sodium (Phenobarbital Sodium 130 Mg/Ml Vial Im Q3hx2) 135 mg IM Q3H [facility]; Protocol Stop: 11/08/23 23:01 Sodium Chloride (0.9 % Sodium Chloride Flush 3 Ml Syringe) 3 ml IVFLUSH QSHIFT [facility] Last Admin: 11/08/23 16:39 Dose: Not Given Documented By: DARBY Non-Admin Reason: IV Running Thiamine HCl (Thiamine Hcl 100 Mg Tablet) 100 mg PO DAILY [facility] Last Admin: 11/08/23 16:20 Dose: 100 mg Documented By: DARBY Labs 11/08/23 07:07 11/08/23 07:06 Labs: Laboratory Results - last 24 hr 11/07/23 11/08/23 11/08/23 17:37 07:06 07:07 MCV 94.8 MCH 33.5 H MCHC 35.4 RDW 11.8 Plt Count 193 MPV 10.2 Immature Gran % (Auto) 0.2 Neut % (Auto) 62.9 Lymph % (Auto) 25.0 Haskell % (Auto) 9.8 Eos % (Auto) 1.6 Baso % (Auto) 0.5 Lymph # (Auto) 1.4 Haskell # (Auto) 0.6 Eos # (Auto) 0.1 Baso # (Auto) 0.0 Abs Immat Gran (auto) 0.01 Absolute Neuts (auto) 3.6 Absolute Nucleated RBC 0.000 Nucleated RBC % (auto) 0.0 Anion Gap 18 Estim Creat Clear Calc 128.6 Estimated GFR > 60 Random Glucose 96 Calcium 9.7 Total Bilirubin 1.5 H AST 54 H ALT 122 H Alkaline Phosphatase 83 Total Protein 8.2 H Albumin 4.3 Hep Bs Antigen Not Reportable Hep Bs Antigen (2) NEGATIVE Hep Bs Antibody GRAYZONE Hep B Core Total Ab Nonreactive Hepatitis C Ab (EIA) Nonreactive Assessment and Plan (1) Cerebrovascular accident: Status: Acute (2) Hypertension, uncontrolled: Status: Acute Assessment and Plan: Pt is a 43-year-old male with no known significant PMH not on any home medications who has not seen a PCP in 15+ years who presents to the ED for evaluation of left-sided facial droop and dysarthria. Pt will be admitted to the hospital for treatment and further evaluation of CVA. #Acute CVA -slurred speech, left facial droop persists -CT?of head w/ left leyva radiata and left external capsule density suggestive of lacunar infarction of indeterminate age. Also, lacunar infarction of left amarjit with mild heterogenicity in the central amarjit -CTA No evidence of acute territorial infarct or hemorrhage but did show likely right cervical vertebral artery occlusion, as well as scattered chronic small vessel ischemic changes MRI of brain w/ contrast per neuro:Multiple lacunar infarcts are noted within the central amarjit, left lentiform nucleus, and bilateral thalamic. The ventricles and sulcal spaces are proportional. No midline shift. No demonstrated abnormal mass effect. The cerebellar tonsils are normally positioned. Echo: Normal left ventricular size and systolic function. There is moderately increased left ventricular wall thickness. The visually estimated ejection fraction is between 65-70%. - E/E prime ratio is between 8 and 15 consistent with indeterminate filling pressures. There is severe septal asymmetric hypertrophy. - Normal right ventricular cavity size and systolic function. - There is mild dilatation of the sinuses of Valsalva measuring 3.80 cm. - There is no evidence of interatrial shunt by agitated saline. cotninue Aspirin 81 mg daily -Lipid levels controlled. Atorvastatin 40mg daily,bp control. -PT/OT and speech evaluation -Neurology input appreciated -Cardiac diet- software development leader recommending chopped diet, thin liquids, 1:1 feeds, aspiration precautions, pills crushed with puree -Monitor on telemetry Uncontrolled HTN Given 10mg IV labetalol this am due to uncontrolled htn Eval by KOSHER DIETARY SERVICE SUPERVISOR- give amlodipine 10mg daily in crushed in puree monitor bp, monitor on telemtry alcohol use : added ciwa,thiamine and folic acid care team eval. patient refused phenobarbital -not in withdrawal so far ,will moniter ciwa if needed may add ativan. Full Code DVT Prophylaxis: Lovenox Pt requires ongoing inpt stay due to acute CVA with persistent significant deficits at risk for aspiration and requiring expert consultation as well as further investigation with MRI and echocardiogram and close monitoring and management of uncontrolled htn. Quality Stroke Does the patient have a stroke diagnosis?: Yes Reason for No Anti-thrombotic by Day Two: Contraindicated (Last known well time 30+ hours prior. Outside of tNK therapeutic window.) VTE Prior VTE?: No VTE Risk Level:: Medical - moderate - high VTE Device Contraindication: Treatment Not Indicated VTE Drug Contraindication: N/A - Med Ordered
[2023-11-08] MEDS: Enoxaparin Sodium 40 MG/0.4 ML SYRINGE SUBCUT (21:11)
[2023-11-09] VITALS (8 sets, daily range): BP systolic 138–180; BP diastolic 78–98; PULSE 61–78; RESP 18–20; TEMP 36–37; O2SAT 94–98
[2023-11-09] MEDS: carvediloL 3.125 MG TABLET PO ×2 (08:35→20:12)
[2023-11-09] MEDS: Folic Acid 1 MG TABLET PO (08:35)
[2023-11-09] MEDS: Aspirin Enteric Coated 81 MG TABLET.DR PO (08:35)
[2023-11-09] MEDS: Atorvastatin Calcium 40 MG TABLET PO (08:35)
[2023-11-09] MEDS: amLODIPine Besylate 10 MG TABLET PO (08:35)
[2023-11-09] MEDS: Thiamine HCL 100 MG TABLET PO (08:36)
[2023-11-09] MEDS: 0.9 % Sodium Chloride Flush 3 ML SYRINGE IVFLUSH ×2 (08:38→15:33)
[2023-11-09] MEDS: Losartan Potassium 50 MG TABLET PO (08:40)
[2023-11-09 08:53] LABS: Alanine Aminotransferase 133 U/L (0-40); Albumin Level 4.4 g/dL (3.5-5.0); Alkaline Phosphatase 81 U/L (39-117); Aspartate Amino Transferase 67 U/L (5-37); Bilirubin Direct 0.5 mg/dL (0.0-0.5); Bilirubin Total 1.4 mg/dL (0.0-1.0); Total Protein 8.2 g/dL (6.5-8.0)
--- NOTE | 2023-11-09 10:09 | MHC.SL.SWA ---
Speech Pathologist Impression: Risk of aspiration, mild oral phase dysphagia, moderate dysarthria Risk of Aspiration Due to: Neurological Condition Dysphasia Diet Status: Recommend UPGRADE to REGULAR SOLIDS and THIN LIQUIDS. MEDS WHOLE with PUREE or LIQUID, as tolerated. Recommend continued monitoring. Pt will benefit from Outpatient Speech Therapy after discharge to address residual oral-motor weakness. Liquid Consistency and Strategies for Safe Swallow: Liquid Intake Recommendation: Thin Liquid Intake Strategies: Small Sips Solid Food Consistency: Dietary Recommendations: Regular Oral Medication Intake: Whole with Liquid Please contact the pharmacy regarding appropriate crushable or liquid drug formulations that are available whenever modified delivery is recommended. Compensatory Strategies and Precautions to be Taken for Safe Swallow: Sitting Upright (90 deg) Small Bites and Sips Rate of Ingestion Change Supervision While Eating and Drinking for Safe Swallow: Intermittent Supervision Foods to Avoid: Hard, sticky, or dry foods Swallowing Recommended Treatments: Compens. Strategy Educat. Recommendation for Speech: Inpatient Speech Therapy Outpatient Speech Therapy Fuel Operator Clinican/Clinical Fellow: No Supervisory Statement: I have reviewed and agree with the student/clinical fellow's documentation: N/A Speech Language Pathologist: Neelam Valle M.A., CCC-SMALL KICK PRESS OPERATOR
--- NOTE | 2023-11-09 10:18 | MHC.CM.PN ---
Per ROUNDS discussion, Patient's BP is not controlled and med changes are occurring. Patient is not yet medically cleared for dc. D/T no PCP and no insurance, home self care is the plan. CM will follow.
--- NOTE | 2023-11-09 15:08 | MHC.RECOVRN ---
Attempted to meet with pt in 454 after consult placed to CARE Team for alcohol use. Pt had presented to the ED with left sided facial weakness and HTN. Upon evaluation, pt admitted for CVA and uncontrolled HTN. Pt had reported alcohol use on the weekends initially but did tell the Stroke RN he has been drinking daily x 1 year since loss of job. Pt sitting in bed, awake, alert, does not appear to be experiencing withdrawal symptoms. As soon as t/w introduced self, pt expressed displeasure and declined conversation and resources. T/w available if pt would like to speak at a later time.
--- NOTE | 2023-11-09 15:57 | P.PNIM_ITS ---
Subjective Subjective Date of Service: 11/09/23 Interval History: cva ,uncontrolled htn Review of Systems speech improving Denies any chest pain or shortness of breath or abdominal pain or fever chills. Physical Exam 2 Vital Signs: Vital Signs: Last Vital Signs Temp 97.1 F 11/09/23 15:21 Pulse 69 11/09/23 15:21 Resp 18 11/09/23 15:21 BP 150/98 H 11/09/23 15:21 Pulse Ox 95 11/09/23 15:21 O2 Del Method Room Air 11/09/23 15:21 BMI result Body Mass Index 32.1 Constitutional - Awake and Alert, No apparent distress Cardiovascular - S1S2, RRR, No edema Respiratory - Normal lung expansion, Normal respiratory effort, No respiratory distress, CTA bilaterally Gastrointestinal - NT / ND; +BS; No rebound or guarding Extremities - no calf tenderness bilaterally, no swelling Skin - Warm/Dry Neurological - Alert & oriented x3, left sided facial droop slurring speech otherwise CN II-XII in tact, 5/5 strength BUE and BLE Objective Data Active Medications Acetaminophen (Acetaminophen 325 Mg Tablet) 650 mg PO Q6H PRN PRN Reason: Pain, Mild (Pain Scale 1-3) Al Hydroxide/Mg Hydroxide (Magnesium Hydrox/Alum Hydrox 30 Ml Oral.Susp) 30 ml PO Q6H PRN PRN Reason: Heartburn Last Admin: 11/07/23 22:12 Dose: 30 ml Documented By: ERICK Amlodipine Besylate (Amlodipine Besylate 10 Mg Tablet) 10 mg PO DAILY [facility]; Protocol Last Admin: 11/09/23 08:35 Dose: 10 mg Documented By: KHAI Aspirin (Aspirin Enteric Coated 81 Mg Tablet.Dr) 81 mg PO DAILY [facility] Last Admin: 11/09/23 08:35 Dose: 81 mg Documented By: KHAI Atorvastatin Calcium (Atorvastatin Calcium 40 Mg Tablet) 40 mg PO DAILY [facility] Last Admin: 11/09/23 08:35 Dose: 40 mg Documented By: KHAI Benzonatate (Benzonatate 100 Mg Capsule) 100 mg PO TID PRN PRN Reason: Cough Carvedilol (Carvedilol 3.125 Mg Tablet) 3.125 mg PO BID [facility]; Protocol Last Admin: 11/09/23 08:35 Dose: 3.125 mg Documented By: KHAI Docusate Sodium (Docusate Sodium 100 Mg Capsule) 100 mg PO DAILY PRN PRN Reason: Constipation Enoxaparin Sodium (Enoxaparin Sodium 40 Mg/0.4 Ml Syringe) 40 mg SUBCUT Q24H [facility] Last Admin: 11/08/23 21:11 Dose: 40 mg Documented By: ARVINDTRLeigh Folic Acid (Folic Acid 1 Mg Tablet) 1 mg PO DAILY [facility] Last Admin: 11/09/23 08:35 Dose: 1 mg Documented By: KHAI Losartan Potassium (Losartan Potassium 50 Mg Tablet) 50 mg PO DAILY [facility]; Protocol Last Admin: 11/09/23 08:40 Dose: 50 mg Documented By: KHAI Melatonin (Melatonin 3 Mg Tablet) 6 mg PO BEDTIME PRN PRN Reason: Insomnia Ondansetron HCl (Ondansetron Hcl 4 Mg/2 Ml Vial) 4 mg IVPUSH Q8H PRN PRN Reason: Nausea and Vomiting Pharmacy Consult (Consult Rx Etoh Phenob Po Only) 1 each MISCELLANE ONCE PRN; Protocol PRN Reason: Consult order Phenobarbital (Phenobarbital 30 Mg Tablet) 60 mg PO BID [facility]; Protocol Stop: 11/10/23 21:01 Last Admin: 11/09/23 08:40 Dose: Not Given Documented By: KHAI Non-Admin Reason: Patient Refused Phenobarbital (Phenobarbital 30 Mg Tablet) 30 mg PO BID [facility]; Protocol Stop: 11/12/23 21:01 Phenobarbital (Phenobarbital 30 Mg Tablet) 30 mg PO DAILY [facility]; Protocol Stop: 11/14/23 09:01 Sodium Chloride (0.9 % Sodium Chloride Flush 3 Ml Syringe) 3 ml IVFLUSH QSHIFT [facility] Last Admin: 11/09/23 15:33 Dose: 3 ml Documented By: TESSA Thiamine HCl (Thiamine Hcl 100 Mg Tablet) 100 mg PO DAILY [facility] Last Admin: 11/09/23 08:36 Dose: 100 mg Documented By: KHAI Labs 11/08/23 07:07 11/08/23 07:06 Labs: Laboratory Results - last 24 hr 11/09/23 08:24 Total Bilirubin 1.4 H Direct Bilirubin 0.5 AST 67 H ALT 133 H Alkaline Phosphatase 81 Total Protein 8.2 H Albumin 4.4 Assessment and Plan (1) Cerebral infarction: Status: Acute (2) Hypertension, uncontrolled: Status: Acute Plan 43-year-old male with no known significant PMH not on any home medications who has not seen a PCP in 15+ years who presents to the ED for evaluation of left- sided facial droop and dysarthria. Pt will be admitted to the hospital for treatment and further evaluation of CVA. #Acute CVA -slurred speech, left facial droop persists -CT?of head w/ left leyva radiata and left external capsule density suggestive of lacunar infarction of indeterminate age. Also, lacunar infarction of left amarjit with mild heterogenicity in the central amarjit -CTA No evidence of acute territorial infarct or hemorrhage but did show likely right cervical vertebral artery occlusion, as well as scattered chronic small vessel ischemic changes MRI of brain w/ contrast per neuro:Multiple lacunar infarcts are noted within the central amarjit, left lentiform nucleus, and bilateral thalamic. The ventricles and sulcal spaces are proportional. No midline shift. No demonstrated abnormal mass effect. The cerebellar tonsils are normally positioned. Echo: Normal left ventricular size and systolic function. There is moderately increased left ventricular wall thickness. The visually estimated ejection fraction is between 65-70%. - E/E prime ratio is between 8 and 15 consistent with indeterminate filling pressures. There is severe septal asymmetric hypertrophy. - Normal right ventricular cavity size and systolic function. - There is mild dilatation of the sinuses of Valsalva measuring 3.80 cm. - There is no evidence of interatrial shunt by agitated saline. cotninue Aspirin 81 mg daily -Lipid levels controlled. Atorvastatin 40mg daily,bp control. -PT/OT and speech evaluation -Neurology input appreciated -Cardiac diet- commercial litigation attorney recommending chopped diet, thin liquids, 1:1 feeds, aspiration precautions, pills crushed with puree -Monitor on telemetry Uncontrolled HTN Given 10mg IV labetalol this am due to uncontrolled htn Eval by CONCRETE WALL GRINDER OPERATOR- give amlodipine 10mg daily in crushed in puree monitor bp, monitor on telemtry alcohol use : added ciwa,thiamine and folic acid care team eval. patient refused phenobarbital -not in withdrawal so far ,will moniter ciwa if needed may add ativan. Full Code DVT Prophylaxis: Lovenox Pt requires ongoing inpt stay due to acute CVA with persistent significant deficits at risk for aspiration andalso unconyrolled htn -need monitering and med management. Quality Stroke Does the patient have a stroke diagnosis?: Yes Reason for No Anti-thrombotic by Day Two: Contraindicated (Last known well time 30+ hours prior. Outside of tNK therapeutic window.) VTE Prior VTE?: No VTE Risk Level:: Medical - moderate - high VTE Device Contraindication: Treatment Not Indicated VTE Drug Contraindication: N/A - Med Ordered
[2023-11-09] MEDS: Enoxaparin Sodium 40 MG/0.4 ML SYRINGE SUBCUT (20:12)
[2023-11-10] VITALS (9 sets, daily range): BP systolic 153–192; BP diastolic 84–117; PULSE 65–99; RESP 18–20; TEMP 35.8–36.8; O2SAT 93–98
[2023-11-10] MEDS: 0.9 % Sodium Chloride Flush 3 ML SYRINGE IVFLUSH ×4 (00:14→19:50)
[2023-11-10] MEDS: Folic Acid 1 MG TABLET PO (08:34)
[2023-11-10] MEDS: Atorvastatin Calcium 40 MG TABLET PO (08:34)
[2023-11-10] MEDS: Losartan Potassium 50 MG TABLET PO (08:34)
[2023-11-10] MEDS: Aspirin Enteric Coated 81 MG TABLET.DR PO (08:35)
[2023-11-10] MEDS: amLODIPine Besylate 10 MG TABLET PO (08:35)
[2023-11-10] MEDS: carvediloL 6.25 MG TABLET PO ×2 (08:35→19:50)
--- NOTE | 2023-11-10 09:15 | PC.NURSE ---
Clarified Nursing swallow screen with Belem BUTLER. Pt had swallow screen done prior to receiving his po Aspirin. RN reports that patient passed and tolerated the po Aspirin without incident.
[2023-11-10 10:45] LABS: Alanine Aminotransferase 118 U/L (0-40); Albumin Level 4.5 g/dL (3.5-5.0); Alkaline Phosphatase 81 U/L (39-117); Aspartate Amino Transferase 57 U/L (5-37); Bilirubin Direct 0.4 mg/dL (0.0-0.5); Bilirubin Total 1.7 mg/dL (0.0-1.0); Total Protein 8.9 g/dL (6.5-8.0)
--- NOTE | 2023-11-10 10:59 | MHC.CM.PN ---
Per [facility] Financial/[employer], Patient has [facility] as of this morning (ID # [id number])and Patient's Mother is working on getting him an appointment with her PCP/PA Kenneth Wang. CM will follow.
--- NOTE | 2023-11-10 13:24 | MHC.SL.SOA ---
Referring Provider: Genie Briggs Reason for Referral: CVA with dysarthria Date of Plan of Treatment:11/07/23 Onset of Symptoms/Illness:11/06/23 Date Treatment Started:11/07/23 Medical Diagnosis:Hypertension uncontrolled, CVA Primary Speech Language Diagnosis:R13.11 Oral Phase Dysphagia Secondary Speech Language Diagnosis: Number of Authorized Visits Remaining: Authorization End Date: Reason for Visit:[id number] Dysphagia Treatment Other: Subjective:Pt seen by QUARRY SUPERVISOR this morning for speech therapy. Patient was reclining but awake, and was agreeable to do therapy/oral motor exercises. Patient showed QUARRY SUPERVISOR materials given for exercises yesterday by QUARRY SUPERVISOR. Objective: Patient was asked to do oral motor exercises including the original set given yesterday, with some additional exercises for today. All exercises were demonstrated/modelled with patient given specific cuing. All exercises were provided in written format with Patient instructed to carry over practice at least 3X daily which patient was agreeable to. Assessment:Patient produced a smile/pucker exercise X5. Patient required cuing to keep head steady/still as he appeared to be engaging a nodding motion to assist with movement. Patient attempted labial o exercise, but had difficulty imitating/completing movements despite modelling and specific cuing. This exercise was omitted from the carry over set. Patient attempted lip curl exercise, with limited movement of upper lip, and over use of jaw to assist/atttempt movement. With ample cuing patient steadied jaw and produced partial isolated movement of upper lip. Patient needed extensive cuing to produce fully protruded, downward pointing tongue exercies, frequently minimally protruding tongue. With modelling and full explaination patient was able to mostly protrude tongue and hold for 5 seconds X 3. Tongue/inner lip: Patient evidenced difficulty with movement of tongue across upper teeth with mouth closed. Modelling, verbal and visual explanation did not improve execution of movement. This exercise was also excluded from the set. Tongue clicks: Patient produced tongue clicks using tip and mid tongue for 30 seconds with 100% accuracy. Lateral tongue resistance: Patient pressed tongue against spoon on L/R with good accuracy. X5 each side. Tongue tip resistance: Patient pressed protruded tongue tip agains spoon with good accuracy X10 Notes: Pt is not a candidate for rehab as OT/PT needs are not required. He is without PCP or insurance. He is working on insurance prior to discharge. CM informs that he cannot likely get a PCP new patient visit for 3-4 months, however may have a Neurology follow-up within 7 days of leaving the Hospital. Pt/Family is advised to advocated for Outpatient Speech Therapy at their Neurology follow-up. QUARRY SUPERVISOR will continue to follow during admission. Plan: Goal # : Status of Goal: Goal # : Status of Goal: Goal # : Status of Goal: Goal # : Status of Goal: Seen by: Graduate/Clinical Fellow: No Supervisory Statement: f_Reg Query Last Value , [facility] Speech Language Pathologist: Emelina Garduno M.A., CCC-QUARRY SUPERVISOR
--- NOTE | 2023-11-10 15:11 | P.PNIM_ITS ---
Subjective Subjective Date of Service: 11/10/23 Interval History: cva ,uncontrolled htn Review of Systems speech improving moveall extermities Denies any chest pain or shortness of breath or dizziness or abdominal pain or fever chills. Physical Exam 2 Vital Signs: Vital Signs: Last Vital Signs Temp 97.0 F 11/10/23 11:28 Pulse 80 11/10/23 13:28 Resp 20 11/10/23 11:28 BP 153/105 H 11/10/23 13:28 Pulse Ox 93 11/10/23 11:28 O2 Del Method Room Air 11/10/23 11:28 BMI result Body Mass Index 32.1 Constitutional - Awake and Alert, No apparent distress Cardiovascular - S1S2, RRR, No edema Respiratory - Normal lung expansion, Normal respiratory effort, No respiratory distress, CTA bilaterally Gastrointestinal - NT / ND; +BS; No rebound or guarding Extremities - no calf tenderness bilaterally, no swelling Skin - Warm/Dry Neurological - Alert & oriented x3, left sided facial droop slurring speech otherwise CN II-XII in tact, 5/5 strength BUE and BLE Objective Data Active Medications Acetaminophen (Acetaminophen 325 Mg Tablet) 650 mg PO Q6H PRN PRN Reason: Pain, Mild (Pain Scale 1-3) Al Hydroxide/Mg Hydroxide (Magnesium Hydrox/Alum Hydrox 30 Ml Oral.Susp) 30 ml PO Q6H PRN PRN Reason: Heartburn Last Admin: 11/07/23 22:12 Dose: 30 ml Documented By: ERICK Amlodipine Besylate (Amlodipine Besylate 10 Mg Tablet) 10 mg PO DAILY [facility]; Protocol Last Admin: 11/10/23 08:35 Dose: 10 mg Documented By: ESTEE Aspirin (Aspirin Enteric Coated 81 Mg Tablet.) 81 mg PO DAILY [facility] Last Admin: 11/10/23 08:35 Dose: 81 mg Documented By: ESTEE Atorvastatin Calcium (Atorvastatin Calcium 40 Mg Tablet) 40 mg PO DAILY [facility] Last Admin: 11/10/23 08:34 Dose: 40 mg Documented By: ESTEE Benzonatate (Benzonatate 100 Mg Capsule) 100 mg PO TID PRN PRN Reason: Cough Carvedilol (Carvedilol 6.25 Mg Tablet) 6.25 mg PO BID [facility]; Protocol Last Admin: 11/10/23 08:35 Dose: 6.25 mg Documented By: ESTEE Docusate Sodium (Docusate Sodium 100 Mg Capsule) 100 mg PO DAILY PRN PRN Reason: Constipation Enoxaparin Sodium (Enoxaparin Sodium 40 Mg/0.4 Ml Syringe) 40 mg SUBCUT Q24H [facility] Last Admin: 11/09/23 20:12 Dose: 40 mg Documented By: TESSA Folic Acid (Folic Acid 1 Mg Tablet) 1 mg PO DAILY [facility] Last Admin: 11/10/23 08:34 Dose: 1 mg Documented By: ESTEE Losartan Potassium (Losartan Potassium 50 Mg Tablet) 50 mg PO DAILY [facility]; Protocol Last Admin: 11/10/23 08:34 Dose: 50 mg Documented By: ESTEE Melatonin (Melatonin 3 Mg Tablet) 6 mg PO BEDTIME PRN PRN Reason: Insomnia Ondansetron HCl (Ondansetron Hcl 4 Mg/2 Ml Vial) 4 mg IVPUSH Q8H PRN PRN Reason: Nausea and Vomiting Pharmacy Consult (Consult Rx Etoh Phenob Po Only) 1 each MISCELLANE ONCE PRN; Protocol PRN Reason: Consult order Sodium Chloride (0.9 % Sodium Chloride Flush 3 Ml Syringe) 3 ml IVFLUSH QSHIFT [facility] Last Admin: 11/10/23 08:36 Dose: 3 ml Documented By: ESTEE Labs 11/08/23 07:07 11/08/23 07:06 Labs: Laboratory Results - last 24 hr 11/10/23 10:12 Total Bilirubin 1.7 H Direct Bilirubin 0.4 AST 57 H ALT 118 H Alkaline Phosphatase 81 Total Protein 8.9 H Albumin 4.5 Assessment and Plan (1) Cerebral infarction: Status: Acute (2) Hypertension, uncontrolled: Status: Acute Plan 43-year-old male with no known significant PMH not on any home medications who has not seen a PCP in 15+ years who presents to the ED for evaluation of left- sided facial droop and dysarthria. Pt will be admitted to the hospital for treatment and further evaluation of CVA. Acute CVA -slurred speech, left facial droop persists -CT?of head w/ left leyva radiata and left external capsule density suggestive of lacunar infarction of indeterminate age. Also, lacunar infarction of left amarjit with mild heterogenicity in the central amarjit -CTA No evidence of acute territorial infarct or hemorrhage but did show likely right cervical vertebral artery occlusion, as well as scattered chronic small vessel ischemic changes MRI of brain w/ contrast per neuro:Multiple lacunar infarcts are noted within the central amarjit, left lentiform nucleus, and bilateral thalamic. The ventricles and sulcal spaces are proportional. No midline shift. No demonstrated abnormal mass effect. The cerebellar tonsils are normally positioned. Echo: Normal left ventricular size and systolic function. There is moderately increased left ventricular wall thickness. The visually estimated ejection fraction is between 65-70%. - E/E prime ratio is between 8 and 15 consistent with indeterminate filling pressures. There is severe septal asymmetric hypertrophy. - Normal right ventricular cavity size and systolic function. - There is mild dilatation of the sinuses of Valsalva measuring 3.80 cm. - There is no evidence of interatrial shunt by agitated saline. cotninue Aspirin 81 mg daily,Atorvastatin 40mg daily,bp control,PT/OT and speech evaluation -Cardiac diet- water quality specialist recommending chopped diet, thin liquids, 1:1 feeds, aspiration precautions, pills crushed with puree -Monitor on telemetry neuro eval noted . Uncontrolled HTN still elevated changed amlodipine to nifedipine ,coreg adjusted 6.25 mg po bid, alcohol use : added ciwa,thiamine and folic acid Full Code DVT Prophylaxis: Lovenox ongoing inpt stay due to acute CVA with persistent significant deficits and also uncontrolled htn -need monitering and med management. Quality Stroke Does the patient have a stroke diagnosis?: Yes Reason for No Anti-thrombotic by Day Two: Contraindicated (Last known well time 30+ hours prior. Outside of tNK therapeutic window.) VTE Prior VTE?: No VTE Risk Level:: Medical - moderate - high VTE Device Contraindication: Treatment Not Indicated VTE Drug Contraindication: N/A - Med Ordered
[2023-11-10] MEDS: hydrALAZINE HCl 20 MG/ML VIAL 10 MG IVPUSH (16:03)
[2023-11-10] MEDS: LORazepam 0.5 MG TABLET PO (16:05)
[2023-11-10] MEDS: Enoxaparin Sodium 40 MG/0.4 ML SYRINGE SUBCUT (19:50)
[2023-11-11 03:38] VITALS: BP 150/74; PULSE 68; RESP 17; TEMP 36.2; O2SAT 95
[2023-11-11 07:25] VITALS: BP 133/74; PULSE 71; RESP 18; TEMP 36.2; O2SAT 96
[2023-11-11] MEDS: Atorvastatin Calcium 40 MG TABLET PO (08:15)
[2023-11-11] MEDS: carvediloL 6.25 MG TABLET PO (08:15)
[2023-11-11] MEDS: 0.9 % Sodium Chloride Flush 3 ML SYRINGE IVFLUSH (08:15)
[2023-11-11] MEDS: Aspirin Enteric Coated 81 MG TABLET.DR PO (08:15)
[2023-11-11] MEDS: Losartan Potassium 50 MG TABLET PO (08:15)
[2023-11-11] MEDS: Folic Acid 1 MG TABLET PO (08:15)
[2023-11-11 09:21] VITALS: BP 133/74; PULSE 71; O2SAT 96
--- NOTE | 2023-11-11 10:19 | MHC.SL.SOA ---
Referring Provider: Genie Briggs Reason for Referral: CVA with dysarthria Date of Plan of Treatment:11/07/23 Onset of Symptoms/Illness:11/06/23 Date Treatment Started:11/07/23 Medical Diagnosis:Hypertension uncontrolled, CVA Primary Speech Language Diagnosis:R13.11 Oral Phase Dysphagia Secondary Speech Language Diagnosis: Number of Authorized Visits Remaining: Authorization End Date: Reason for Visit:[id number] Dysphagia Treatment Other: Subjective:Pt seen by ENERGY ASSISTANT this morning for speech therapy. Pt was watching tv in his chair and was agreeable to do therapy/oral motor exercises when approached by ENERGY ASSISTANT. Pt shared he had just completed a set of pucker exercises before her arrival. Objective: Pt was asked to do oral motor exercises. All exercises were demonstrated/modelled with patient given specific cuing. All exercises were provided in written format with pt instructed to carry over practice at least 3X daily which pt was agreeable to. Assessment:Patient produced a smile/pucker exercise X10. Patient required cuing to keep head steady/still as he appeared to be engaging a nodding motion to assist with movement. Patient needed extensive cuing to produce fully protruded, downward pointing tongue exercise, frequently minimally protruding tongue. With modelling and full explanation patient was able to mostly protrude tongue and hold for 5 seconds X 3. Patient completed 5 lateral tongue presses to each side against resistance of tongue depressor. Pt also exerted force against tongue depressor pushing tongue tip upward x 5 repetitions. Patient produced tongue clicks using tip and mid tongue for 30 seconds with 100% accuracy. Notes: Per CM, pt now has [place]. His mother is working on getting him an appointment with her PCP. ENERGY ASSISTANT will continue to follow during admission. Continue to recommend outpatient speech therapy for the treatment of dysarthria. Seen by: Graduate/Clinical Fellow: No Supervisory Statement: f_Reg Query Last Value , MHC.AU.SIGNATUR Speech Language Pathologist: Neelam Valle M.A., [facility]-ENERGY ASSISTANT
[2023-11-11 11:23] VITALS: BP 115/88; PULSE 76; RESP 18; TEMP 36; O2SAT 97
--- NOTE | 2023-11-11 12:35 | P.DS_ITS ---
DS: Providers Provider Date of Service: 11/11/23 Date of admission: 11/06/23 19:57 Date of discharge: 11/11/23 Primary care physician: Unknown Physician Consults: 11/06/23 20:03 Consult to Neurology Routine Consulting Provider: [facility] Reason for consultation: CVA 11/08/23 15:51 Consult to Care Team Routine Comment: Reason for consultation: alcohol use Has provider been notified: No Attending physician on discharge: Mariano Calhoun Discharging clinician: Mariano Calhoun DS: Diagnosis Discharge Diagnosis (1) Cerebral infarction: Status: Acute (2) Hypertension, uncontrolled: Status: Acute DS: Summary Hospital Course Hospital Course: 43-year-old male with no known significant PMH not on any home medications who has not seen a PCP in 15+ years who presents to the ED for evaluation of left- sided facial droop and dysarthria. Patient states he went to bed on Tuesday night in his normal state of health but when he awoke on Tuesday morning he found he had left-sided facial droop and difficulty speaking. Denies numbness and tingling in extremities or hemiparesis. No headache or acute vision changes. Patient did not present to the emergency department yesterday as he believed his condition was caused by his wisdom teeth. Patient states he could feel his teeth were not lining up properly and he thought this was making it difficult to speak. Presented to the ED today after symptoms persisted this morning and after speaking with his parents who encouraged him to get evaluated. Denies chest pain/pressure, palpitations. No shortness of breath. Has a remote history of smoking, since stopped ?years? ago. Does drink on the weekends, on Tuesday, Tuesday, and Tuesday. Denies any illicit substances. Of note, patient emotionally labile in the ED, often uncontrollably crying. Has also experienced extremely high blood pressures, up to 224/152. In the ED pt was afebrile, but with elevated heart rate up to 90 tachypnea up to 27, and hypertensive up to 224/152. Labs were significant for bilirubin 1.2, AST 77, ALT 151, otherwise grossly unremarkable. Ethyl alcohol level <10. Drug tox screen pending. CT?of showed left leyva radiata and left external capsule density suggestive of lacunar infarction of indeterminate age. Also found a lacunar infarction of left amarjit with mild heterogenicity in the central amarjit as well. 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 Did find scattered chronic small vessel ischemic changes within the periventricular white matter, basal ganglia, thalami, and amarjit, but no evidence of intracranial large vessel occlusion. No evidence of acute territorial infarct or hemorrhage, and no abnormal intracranial mass or enhancement. EKG demonstrated Normal sinus rhythm with possible left atrial enlargement and left ventricular hypertrophy, but no significant ST elevations or depressions. Pt was treated with aspirin, labetalol, amlodipine, hydralazine, and Ativan. Pt will be admitted to the hospital for treatment and further evaluation of CVA. Hospital course: Patient was admitted for uncontrolled hypertension, new CVA: Patient came with the slurred speech and left facial droop-subsequently was admitted for CVA workup: CT head and CTA head-No evidence of acute territorial infarct or hemorrhage but did show likely right cervical vertebral artery occlusion, as w ell as scattered chronic small vessel ischemic changes, MRI-Multiple lacunar infarcts are noted within the central amarjit, left lentiform nucleus, and bilateral thalamic.echo:Normal left ventricular size and systolic function. The visually estimated ejection fraction is between 65-70%. Patient was started on aspirin, statin, says blood pressure control valdez added Coreg and losartan , amlodipine, blood pressure trending in 120s this morning without amlodipine, so patient will go home with you Coreg and losartan. Monitor blood pressure outpatient. Patient can follow-up with PCP(patient is with his own appointment), follow-up with neurology outpatient. plan: Continue aspirin, statin, blood pressure control-if blood pressure consistently above 140/90-may consider adding out patiently amlodipine back. Follow-up with PCP and Neurology. Assessment and plan coordination time spent 50 minute, above management discussed with the patient in detail length he understand and in agreement with the above plan. Time Attestation Discharge coordination time: Greater than 30 minutes Quality: Safe Use of Opioids Does Pt have an Active Cancer Diagnosis on the Problem List?: No Quality: Stroke Does the patient have a stroke diagnosis?: No Physical Exam Vital Signs: Vital Signs: Last Vital Signs Temp 96.8 F 11/11/23 11:23 Pulse 76 11/11/23 11:23 Resp 18 11/11/23 11:23 BP 115/88 12/15/23 11:23 Pulse Ox 97 11/11/23 11:23 O2 Del Method Room Air 11/11/23 11:23 BMI result Body Mass Index 32.1 Constitutional - Awake and Alert, No apparent distress Cardiovascular - S1S2, RRR, No edema Respiratory - Normal lung expansion, Normal respiratory effort, No respiratory distress, CTA bilaterally Gastrointestinal - NT / ND; +BS; No rebound or guarding Extremities - no calf tenderness bilaterally, no swelling Skin - Warm/Dry Neurological - Alert & oriented x3, left sided facial droop slurring speech otherwise CN II-XII in tact, 5/5 strength BUE and BLE DS: Data Imaging Chest x-ray: Radiologist's impression: ITS Impressions Head CT 11/06/23 16:08 IMPRESSION: Left Leyva radiata and left external capsule density suggestive of lacunar infarction of indeterminate age. This could explain patient's left facial droop Lacunar infarction left amarjit with mild heterogeneity in the central amarjit as well. Head/Neck CTA 11/06/23 16:33 IMPRESSION: The right cervical vertebral artery is hypoplastic and appears occluded at its dural insertion. The dominant left vertebral artery is widely patent and continues as the basilar. Otherwise no stenosis of the cervical carotid or left vertebral arteries. No intracranial large vessel occlusion. There are scattered chronic small vessel ischemic changes within the periventricular white matter, basal ganglia, thalami, and amarjit. No evidence of acute territorial infarct or hemorrhage. No abnormal intracranial mass or enhancement. Brain MRI 11/07/23 16:55 FINDINGS/IMPRESSION: Limited motion degraded exam. Multiple lacunar infarcts are noted within the central amarjit, left lentiform nucleus, and bilateral thalamic. The ventricles and sulcal spaces are proportional. No midline shift. No demonstrated abnormal mass effect. The cerebellar tonsils are normally positioned. Abdomen Ultrasound 11/07/23 17:30 IMPRESSION: Increased hepatic parenchymal heterogeneity and echogenicity which could be associated with hepatic steatosis or hepatocellular disease and substantially limits visualization. Discharge Plan Discharge Anticipated Discharge Date/Time: 11/11/23 11:28 Patient Disposition: Home, Self-Care Discharge Diagnosis: cva ,uncontrolled bp. Referrals: Physician,Unknown J [Primary Care Provider] - 1 Week Discharge Medications: New docusate sodium 100 mg Capsule 100 mg PO DAILY PRN (Reason: Constipation) Qty: 30 0RF atorvastatin 40 mg Tablet 40 mg PO DAILY Qty: 30 0RF folic acid 1 mg Tablet 1 mg PO DAILY Qty: 30 0RF thiamine HCl (vitamin B1) 100 mg tablet 100 mg PO DAILY Qty: 30 0RF aspirin 81 mg Tablet,Delayed Release (Dr/Ec) 81 mg PO DAILY Qty: 30 0RF losartan 50 mg Tablet 50 mg PO DAILY Qty: 30 0RF Protocol: Hold for SBP< HOLD for SBP < : 90 carvedilol 6.25 mg Tablet 6.25 mg PO BID Qty: 60 0RF Protocol: Hold for SBP/HR < HOLD for SBP < : 90 HOLD for HR < : 60 No Action No Known Home Meds Discharge Orders: Discharge Order (Routine); Ordered 11/11/23 Ordered By: Mariano Calhoun Diet: Advance to usual diet Activity on Discharge: As tolerated Stand Alone Forms: Patient Portal Discharge page Care Plan Goals: Patient was admitted for uncontrolled hypertension, new CVA: Patient came with the slurred speech and left facial droop-subsequently was admitted for CVA workup: CT head and CTA head-No evidence of acute territorial infarct or hemorrhage but did show likely right cervical vertebral artery occlusion, as well as scattered chronic small vessel ischemic changes, MRI-Multiple lacunar infarcts are noted within the central amarjit, left lentiform nucleus, and bilateral thalamic.echo:Normal left ventricular size and systolic function. The visually estimated ejection fraction is between 65-70%. Patient was started on aspirin, statin, says blood pressure control valdez added Coreg and losartan , amlodipine, blood pressure trending in 120s this morning w ithout amlodipine, so patient will go home with you Coreg and losartan. Monitor blood pressure outpatient. Patient can follow-up with PCP(patient is with his own appointment), follow-up with neurology outpatient. Health Concerns: as above. Plan of Treatment: as above. Assessment: as above.
--- NOTE | 2023-11-11 13:32 | MHC.CM.PN ---
PT MEDICALLY CLEARED FOR DC HOME SELF CARE, PT WILL NEED TO REQUEST HOME VS OUTPT PT ONCE PCP SECURED AND HAS HAD FIRST VISIT,SCRIPTS FILLED BY [facility] AND PT [facility] AT [facility] FOR TRANSPORT
== END 2023-11-11 14:05 | disposition home or self-care (01) | DRG 45 ==
LOC: HO.ED 16:51 → HO.EDOVER 20:28 → HO.IMC 11-07 17:46
PROVIDERS: Nurse Practitioner Family; Physician Assistant; Admitting Provider Student in an Organized Health Care Education/Training Program; Emergency Provider Emergency Medicine; Visit Provider Internal Medicine
DX: I63.9 Cerebral infarction, unspecified (principal); I10 Essential (primary) hypertension; R29.810 Facial weakness; R29.702 NIHSS score 2; Z79.899 Other long term (current) drug therapy
CPT/HCPCS: 36415; 70450; 70496; 70498; 70551; 76705; 80048; 80053; 80061; 80076; 80307; 83036; 83735; 84484; 85025; 85610; 86704; 86706; 86803; 87340; 92526; 92610; 93005; 93306; 97116; 97161; 97166; 97530; 97535; 99285; J0360; J1650; J1920; J2060; Q9957; Q9967

== ENCOUNTER → 2023-11-06 15:25 | Outpatient (BNV) | payer MEDICAID, SELFPAY | PROVIDERS: Admitting Provider Student in an Organized Health Care Education/Training Program; Emergency Provider Emergency Medicine; Visit Provider Internal Medicine Cardiovascular Disease | DX: R94.31 Abnormal electrocardiogram [ECG] [EKG] (principal) | CPT/HCPCS: 93010 ==

== ENCOUNTER 2023-11-06 19:57 | Outpatient (BNV) | payer MEDICAID, SELFPAY | END 2023-11-07 07:00 | PROVIDERS: Admitting Provider Student in an Organized Health Care Education/Training Program; Emergency Provider Emergency Medicine; Visit Provider Internal Medicine Cardiovascular Disease | DX: I63.9 Cerebral infarction, unspecified (principal); R94.31 Abnormal electrocardiogram [ECG] [EKG] | CPT/HCPCS: 93306 ==

== ENCOUNTER → 2023-11-06 19:57 | Outpatient (BNV) | payer MEDICAID, SELFPAY | PROVIDERS: Admitting Provider Student in an Organized Health Care Education/Training Program; Emergency Provider Emergency Medicine; Visit Provider Student in an Organized Health Care Education/Training Program | DX: I63.30 Cerebral infarction due to thrombosis of unspecified cerebral artery (principal); I10 Essential (primary) hypertension | CPT/HCPCS: 99223; 99231; 99232; 99239 ==

== ENCOUNTER 2023-11-16 09:37 | Outpatient (AMB) | payer MEDICAID, SELFPAY ==
--- NOTE | 2023-11-16 09:46 | MHC.PC.OV ---
Vital Signs 11/16/23 10:06 Height 5 ft 11 in Weight 223 lb BMI 31.1 BP 146/98 H Blood Pressure Location Lt brachial Position Sitting Respiration 17 Pulse 80 Pulse Source Palpation Intake Visit Reasons: HDF-Stroke Intake Note: Patient is a new patient here to establish care for HDF for CVA and uncontrolled BP from [facility] on 11/11/23. Pt has not seen a PCP for more than 5 years. 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 Accompanied by: Mother Allergies No Known Allergies Allergy (Verified 11/16/23 10:38) Medication List - Last Reconciled 11/16/23 by Kenneth Wang PA-C aspirin 81 mg PO DAILY atorvastatin 40 mg PO DAILY blood pressure monitor As directed blood pressure monitor (Blood Pressure Kit) As directed carvedilol 6.25 mg See Protocol PO BID docusate sodium 100 mg PO DAILY PRN folic acid 1 mg PO DAILY losartan 50 mg See Protocol PO DAILY thiamine HCl (vitamin B1) 100 mg PO DAILY Tobacco use date assessed: 11/16/23 Dental Screening Dental Screen Date: 11/16/23 Did you have a dental visit in the last 12 months?: No Did you have a dental problem in the last 6 months where you did not have access to dental care?: No Was dental information given to patient?: Yes HPI HDF-Stroke HPI Details Patient is a 43-year-old male here today for new patient visit. Previous PCP was Dr. vega. Patient has not seen a PCP in over 5 years. Does have history of alcohol use disorder. Was started on thiamine and folic acid. He reports he quit drinking completely. Also was a former smoker and completely quit smoking 8 or 9 years ago. Patient recently admitted to [facility] for acute dysarthria and left-sided facial droop. Was found to have CVA. He was started on Coreg, statin , ARB, and aspirin. needs outpatient speech therapy and neurology follow-up. Blood pressure today in office still remains elevated. Home blood pressure readings still averaging 140/90. Will add on amlodipine 5 mg for better blood pressure control. [facility] Medical History No pertinent past medical history Surgical History S/P femoral-popliteal bypass surgery Social History Household Members: None Housing: Apartment Do you presently have visiting nurse or other home services: No Patient Tobacco Use Status: Former Tobacco user Quit Date: 2018 Tobacco use type: Cigarette e-Cigarette/Vaping Use: Never Used service: No Current occupational status: unemployed Cognitive needs: No Hearing needs: No Vision needs: No Questionnaire PHQ-9 Over the last 2 weeks, how often have you been bothered by any of the following problems? 1. Little interest or pleasure in doing things: not at all 2. Feeling down, depressed, or hopeless: not at all 3. Trouble falling or staying asleep, or sleeping too much: not at all 4. Feeling tired or having little energy: not at all 5. Poor appetite or overeating: not at all 6. Feeling bad about yourself - or that you are a failure or have let yourself or your family down: not at all 7. Trouble concentrating on things, such as reading the newspaper or watching television: not at all 8. Moving or speaking so slowly that other people could have noticed. Or the opposite - being so fidgety or restless that you have been moving around a lot more than usual: not at all 9. Thoughts that you would be better off or of hurting yourself in some way: not at all Total score: 0 Depression Screening Interpretation: Negative Depression Screening Done: Yes 21139 - PHQ-9 Billing: Yes Source: Developed by Drs. Lefty Mitchell, Kassi Robertson, Maksim Cannon and colleagues, with an educational lalo from [employer]. Thrive Questionnaire Date Thrive assessed: 11/07/23 I am a: Patient What is your living situation today?: I have a steady place to live Within the past 12 months, did the food you bought not last and you didn't have the money to get more?: Never true Within the past 12 months, did you worry whether your food would run out before you got money to buy more?: Never true Do you have trouble paying for medicines?: No Do you have trouble getting transportation to medical appointments?: No Do you have trouble paying your heating and electricity bill?: No Do you have trouble taking care of your child, family member or friend?: No Do you have trouble with day-to-day activities such as bathing, preparing meals, shopping, managing finances, etc.?: No Are you currently unemployed and looking for a job?: No Are you interested in more education?: No Please select the resources that you would like help with: None Currently or been in a relationship where the following occur: no concerns reported AUDIT C Alcohol Use Questionnaire (AUDIT-C) 1. How often do you have a drink containing alcohol?: Never (Quit drinking after the CVA/ED visit) 3. How often do you have six or more drinks on one occasion?: Never Total Score: 0 ABDIAZIZ-7 AMB Questionnaire ABDIAZIZ-7 Date ABDIAZIZ - 7 assessed: 11/16/23 Feeling nervous, anxious, or on edge: 0 = Not at all Not being able to stop or control worryin = Not at all Worrying too much about different things: 0 = Not at all Trouble relaxin = Not at all Being so restless that it is hard to sit still: 0 = Not at all Becoming easily annoyed or irritable: 0 = Not at all Feeling afraid as if something awful might happen: 0 = Not at all Total ABDIAZIZ-7 score (0-4 normal; 5-9 mild; 10-14 moderate; 15-21 severe): 0 Source: Developed by Drs. Lefty Mitchell, Kassi Robertson, Maksim Cannon and colleagues, with an educational lalo from [employer]. ABDIAZIZ-7 Assessment Billing ABDIAZIZ-7 Assessment Tool: ABDIAZIZ-7 Assessment 34140 Review of Systems Const Denies headache(s) Eyes Denies loss of vision ENT Denies vertigo, Denies dizziness, Denies headache(s) and Denies sore throat Card Denies chest pain, Denies leg edema and Denies lightheadedness Resp Denies cough, Denies hemoptysis and Denies wheezing GI Denies abdominal pain, Denies melena, Denies constipation, Denies diarrhea and Denies vomiting Denies dysuria, Denies urinary frequency and Denies urinary urgency Musc Denies arthralgias, Denies joint swelling, Denies numbness and Denies tingling Neuro Denies Abnormal speech present, Denies behavioral changes, Denies vertigo, Denies dizziness, Denies headache(s), Denies loss of vision, Denies memory loss, Denies numbness and Denies tingling Psych Denies anxiety, Denies behavioral changes, Denies depression, Denies memory loss and Denies panic attacks Papo/Lymph Denies easy bleeding and Denies easy bruising Aller/Immun Denies wheezing Physical exam (Primary Care) Vital Signs: Last Vital Signs Pulse 80 11/16/23 10:06 Resp 17 11/16/23 10:06 BP 146/98 H 11/16/23 10:06 BMI result Body Mass Index 31.1 Tobacco/Smoking Status: Tobacco use Status Tobacco use date assessed 11/16/23 11/16/23 10:06 Patient Tobacco Use Status Former Tobacco user 11/16/23 09:48 Tobacco use type Cigarette 11/16/23 09:48 e-Cigarette/Vaping Use Never Used 11/16/23 10:06 PHQ-9: PHQ-9 Score PHQ-9: Total score 0 11/16/23 10:41 Depression Screening Interpretation: Negative Thrive Assessment: Date of Thrive Assessment Date Thrive assessed 11/07/23 11/16/23 09:48 Currently or been in a relationship where the following occur: no concerns reported Const Other: Obese General: healthy appearing, no acute distress, alert and awake Nutritional Appearance: well nourished Orientation/consciousness: oriented to person, oriented to place and oriented to time HENMT Other: LEFT-SIDED FACIAL DROOP STILL NOTICED DYSARTHRIA NOTED Ears: TM's normal bilaterally General nose exam: Normal nasal mucous membranes and turbinates present Eyes Conjunctivae: conjunctivae normal Sclerae: sclerae normal Pupils: Equal, round and reactive pupils present Neck Neck: Yes no lymphadenopathy and Yes no JVD Thyroid: Thyroid normal Carotids: no bruits Resp Effort & Inspection: normal respiratory effort and not tachypneic Auscultation: no crackles, no rales, no rhonchi and no wheezes Cardio Rate: regular rate Rhythm: regular rhythm Heart sounds: no murmurs and normal S1 and S2 GI Palpation (GI): Soft to palpation, nontender, no hepatomegaly and no splenomegaly Auscultation: normal bowel sounds Skin General skin exam: no rashes or lesions noted and dry skin Neuro General: oriented to person, oriented to place and oriented to time Cranial nerves: Yes Equal, round and reactive pupils present Speech: No Abnormal speech present Gait exam (Neuro): Normal gait present Motor exam (neuro): no tremor noted Extrem Right upper extremity: full ROM Left upper extremity: full ROM Right lower extremity: full ROM; no edema Left lower extremity: full ROM; no edema Psych Mental Status: mental status grossly normal Speech and movement: Normal speech and movement present Affect: normal affect Attitude: cooperative Thought process: Normal thought process present Assessment and Plan Assessment & Plan (1) HTN (hypertension): Code(s): I10 - Essential (primary) hypertension Qualifiers: Hypertension type: primary hypertension Qualified Code(s): I10 - Essential (primary) hypertension Plan: Blood pressure elevated today in office. Will add on amlodipine 5 mg for better blood pressure control. Continue a low-sodium diet.. Goal blood pressure is to remain below 140/90 optimally 120/80. (2) Cerebrovascular accident: Code(s): I63.9 - Cerebral infarction, unspecified Qualifiers: CVA mechanism: unspecified Qualified Code(s): I63.9 - Cerebral infarction, unspecified Plan: As per HPI patient recently suffered a stroke with left-sided facial droop and dysarthria. Now needs referral to Neurology and speech therapy to help him regain speech. Has been started on blood pressure medication, aspirin and moderate statin potency. Blood pressure still remains slightly elevated today. Will add on amlodipine 5 mg for better blood pressure control. (3) Obese: Code(s): E66.9 - Obesity, unspecified Qualifiers: Body mass index: BMI 31.0-31.9 Obesity classification: adult class 1 (BMI 30 - 34.9) Obesity type: due to excess calories Serious obesity comorbidity presence: with serious comorbidity Qualified Code(s): E66.09 - Other obesity due to excess calories; Z68.31 - Body mass index [BMI] 31.0-31.9, adult Plan: Patient does understand his BMI is over 30 will work on better eating habits to reduce his weight. Orders: Orders Lipid Panel Today I63.9 - Cerebral infarction, unspecified Comprehensive [place]. Panel Fast Today I63.9 - Cerebral infarction, unspecified Complete Blood Count no Diff Today I63.9 - Cerebral infarction, unspecified Microalbumin, Random (w Creat) Today I10 - Essential (primary) hypertension Referrals Speech and Hearing Referral I63.9 - Cerebral infarction, unspecified Neurology Referral I63.9 - Cerebral infarction, unspecified Medications: New amlodipine 5 mg PO DAILY 30 tabs 1RF I10 - Essential (primary) hypertension Discontinued folic acid Discontinued Reason: Doctor's Order 1 mg PO DAILY 30 tabs 0RF thiamine HCl (vitamin B1) Discontinued Reason: Doctor's Order 100 mg PO DAILY 30 tabs 0RF docusate sodium Discontinued Reason: Doctor's Order 100 mg PO DAILY PRN 30 caps 0RF Constipation Coding Level of Care Code New Pt Level 4 (11275) Diagnoses Primary hypertension I10 Hypertension type: primary hypertension Cerebrovascular accident I63.9 CVA mechanism: unspecified Class 1 obesity due to excess calories with serious comorbidity and body mass index (BMI) of 31.0 to 31.9 in adult E66.09; Z68.31 Body mass index: BMI 31.0-31.9 Obesity classification: adult class 1 (BMI 30 - 34.9) Obesity type: due to excess calories Serious obesity comorbidity presence: with serious comorbidity Additional Codes ABDIAZIZ-7 Assessment Billing - ABDIAZIZ-7 Assessment Tool: ABDIAZIZ-7 Assessment 70343 ([id number])
[2023-11-16 10:06] VITALS: BP 146/98; PULSE 80; RESP 17; BMI 31.1
== END 2023-11-16 11:07 | disposition home or self-care (01) ==
PROVIDERS: Visit Provider Physician Assistant
DX: I10 Essential (primary) hypertension (principal); I69.322 Dysarthria following cerebral infarction; E66.09 Other obesity due to excess calories; Z68.31 Body mass index [BMI] 31.0-31.9, adult
CPT/HCPCS: 99204

== ENCOUNTER 2023-11-30 13:01 | Outpatient (AMB) | payer OTHER, SELFPAY ==
[2023-11-30 13:06] VITALS: BP 178/110; PULSE 67; RESP 17; O2SAT 97; BMI 31.6
--- NOTE | 2023-11-30 13:06 | MHC.PC.OV ---
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 Accompanied by: Mother Allergies No Known Allergies Allergy (Verified 11/30/23 13:32) Medication List - Last Reconciled 11/30/23 by Kenneth Wang PA-C amlodipine 5 mg PO DAILY aspirin 81 mg PO DAILY atorvastatin 40 mg PO DAILY blood pressure monitor As directed blood pressure monitor (Blood Pressure Kit) As directed carvedilol 6.25 mg See Protocol PO BID losartan 50 mg See Protocol PO DAILY Tobacco use date assessed: 11/30/23 Dental Screening Dental Screen Date: 11/30/23 Did you have a dental visit in the last 12 months?: Yes Did you have a dental problem in the last 6 months where you did not have access to dental care?: No Was dental information given to patient?: Patient has dentist HPI f/u HTN/ CVA HPI Details Patient is a 43-year-old male here today for follow-up visit. Patient's past medical history significant for hypertension. , Patient recently had a stroke due to uncontrolled blood pressure. Does have history of alcohol use disorder. Was started on thiamine and folic acid. He reports he quit drinking completely. Also was a former smoker and completely quit smoking 8 or 9 years ago. CVA: Patient recently admitted to [facility] for acute dysarthria and left-sided facial droop. Was found to have CVA. He was started on Coreg, statin , ARB, and aspirin. HTN: Blood pressure today in office still remains elevated. Has recently started amlodipine 5 mg. Has been on a strict low-sodium diet. Home blood pressure readings still averaging above 140/90. Otherwise asymptomatic without any vision issues, chest discomfort, headaches. [facility] Medical History No pertinent past medical history Surgical History S/P femoral-popliteal bypass surgery Social History Household Members: None Housing: Apartment Do you presently have visiting nurse or other home services: No Patient Tobacco Use Status: Former Tobacco user Quit Date: 2018 Tobacco use type: Cigarette e-Cigarette/Vaping Use: Never Used service: No Current occupational status: unemployed Cognitive needs: No Hearing needs: No Vision needs: No Questionnaire PHQ-9 Over the last 2 weeks, how often have you been bothered by any of the following problems? 1. Little interest or pleasure in doing things: not at all 2. Feeling down, depressed, or hopeless: not at all 3. Trouble falling or staying asleep, or sleeping too much: not at all 4. Feeling tired or having little energy: not at all 5. Poor appetite or overeating: not at all 6. Feeling bad about yourself - or that you are a failure or have let yourself or your family down: not at all 7. Trouble concentrating on things, such as reading the newspaper or watching television: not at all 8. Moving or speaking so slowly that other people could have noticed. Or the opposite - being so fidgety or restless that you have been moving around a lot more than usual: not at all 9. Thoughts that you would be better off or of hurting yourself in some way: not at all Total score: 0 Depression Screening Interpretation: Negative Depression Screening Done: Yes 15202 - PHQ-9 Billing: Yes Source: Developed by Drs. Lefty Mitchell, Kassi Robertson, Maksim Cannon and colleagues, with an educational lalo from [employer]. Thrive Questionnaire Date Thrive assessed: 11/30/23 I am a: Patient What is your living situation today?: I have a steady place to live Within the past 12 months, did the food you bought not last and you didn't have the money to get more?: Never true Within the past 12 months, did you worry whether your food would run out before you got money to buy more?: Never true Do you have trouble paying for medicines?: No Do you have trouble getting transportation to medical appointments?: No Do you have trouble paying your heating and electricity bill?: No Do you have trouble taking care of your child, family member or friend?: No Do you have trouble with day-to-day activities such as bathing, preparing meals, shopping, managing finances, etc.?: No Are you currently unemployed and looking for a job?: No Are you interested in more education?: No Please select the resources that you would like help with: None Currently or been in a relationship where the following occur: no concerns reported AUDIT C Alcohol Use Questionnaire (AUDIT-C) 1. How often do you have a drink containing alcohol?: Never (Quit drinking after the CVA/ED visit) 3. How often do you have six or more drinks on one occasion?: Never Total Score: 0 ABDIAZIZ-7 AMB Questionnaire ABDIAZIZ-7 Date ABDIAZIZ - 7 assessed: 11/30/23 Feeling nervous, anxious, or on edge: 0 = Not at all Not being able to stop or control worryin = Not at all Worrying too much about different things: 0 = Not at all Trouble relaxin = Not at all Being so restless that it is hard to sit still: 0 = Not at all Becoming easily annoyed or irritable: 0 = Not at all Feeling afraid as if something awful might happen: 0 = Not at all Total ABDIAZIZ-7 score (0-4 normal; 5-9 mild; 10-14 moderate; 15-21 severe): 0 Source: Developed by Drs. Lefty Mitchell, Kassi Robertson, Maksim Cannon and colleagues, with an educational lalo from [employer]. ABDIAZIZ-7 Assessment Billing ABDIAZIZ-7 Assessment Tool: ABDIAZIZ-7 Assessment 50560 Review of Systems Const Denies headache(s) Eyes Denies loss of vision ENT Denies vertigo, Denies dizziness, Denies headache(s) and Denies sore throat Card Denies chest pain, Denies leg edema and Denies lightheadedness Resp Denies cough, Denies hemoptysis and Denies wheezing GI Denies abdominal pain, Denies melena, Denies constipation, Denies diarrhea and Denies vomiting Denies dysuria, Denies urinary frequency and Denies urinary urgency Musc Denies arthralgias, Denies joint swelling, Denies numbness and Denies tingling Neuro Denies Abnormal speech present, Denies behavioral changes, Denies vertigo, Denies dizziness, Denies headache(s), Denies loss of vision, Denies memory loss, Denies numbness and Denies tingling Psych Denies anxiety, Denies behavioral changes, Denies depression, Denies memory loss and Denies panic attacks Papo/Lymph Denies easy bleeding and Denies easy bruising Aller/Immun Denies wheezing Physical exam (Primary Care) Vital Signs: Last Vital Signs Pulse 67 11/30/23 13:06 Resp 17 11/30/23 13:06 BP 191/108 H 11/30/23 13:27 Pulse Ox 97 11/30/23 13:06 Oxygen Delivery Method Room Air 11/30/23 13:06 BMI result Body Mass Index 31.6 Tobacco/Smoking Status: Tobacco use Status Tobacco use date assessed 11/30/23 11/30/23 13:08 Patient Tobacco Use Status Former Tobacco user 11/30/23 13:06 Tobacco use type Cigarette 11/30/23 13:06 e-Cigarette/Vaping Use Never Used 11/30/23 13:06 PHQ-9: PHQ-9 Score PHQ-9: Total score 0 11/30/23 13:32 Depression Screening Interpretation: Negative Thrive Assessment: Date of Thrive Assessment Date Thrive assessed 11/30/23 11/30/23 13:08 Currently or been in a relationship where the following occur: no concerns reported Const General: healthy appearing, no acute distress, alert and awake Nutritional Appearance: well nourished Orientation/consciousness: oriented to person, oriented to place and oriented to time HENMT Ears: TM's normal bilaterally General nose exam: Normal nasal mucous membranes and turbinates present Eyes Conjunctivae: conjunctivae normal Sclerae: sclerae normal Pupils: Equal, round and reactive pupils present Neck Neck: Yes no lymphadenopathy and Yes no JVD Thyroid: Thyroid normal Carotids: no bruits Resp Effort & Inspection: normal respiratory effort and not tachypneic Auscultation: no crackles, no rales, no rhonchi and no wheezes Cardio Rate: regular rate Rhythm: regular rhythm Heart sounds: no murmurs and normal S1 and S2 GI Palpation (GI): Soft to palpation, nontender, no hepatomegaly and no splenomegaly Auscultation: normal bowel sounds Skin General skin exam: no rashes or lesions noted and dry skin Neuro Other: NOTABLE LEFT-SIDED FACIAL DROOP. DYSARTHRIA NOTED- SOMEWHAT IMPROVED FROM PREVIOUS VISIT General: oriented to person, oriented to place and oriented to time Cranial nerves: Yes Equal, round and reactive pupils present Speech: No Abnormal speech present Gait exam (Neuro): Normal gait present Motor exam (neuro): no tremor noted Extrem Right upper extremity: full ROM Left upper extremity: full ROM Right lower extremity: full ROM; no edema Left lower extremity: full ROM; no edema Psych Mental Status: mental status grossly normal Speech and movement: Normal speech and movement present Affect: normal affect Attitude: cooperative Thought process: Normal thought process present Assessment and Plan Assessment & Plan (1) HTN (hypertension): Code(s): I10 - Essential (primary) hypertension Qualifiers: Hypertension type: primary hypertension Qualified Code(s): I10 - Essential (primary) hypertension Plan: Pressure remains elevated. Blood pressures at home still remaining above 140/90. Patient asymptomatic. will Increase his dose of losartan and add on hydrochlorothiazide for better blood pressure control. Will continue amlodipine 5 mg and Coreg 6.25 b.i.d.. Goal blood pressures to be below 140/90 consistently. Will also order renal Doppler ultrasound to evaluate for renal artery stenosis as he is on multiple blood pressure medications and blood pressure remains elevated. (2) Cerebrovascular accident: Code(s): I63.9 - Cerebral infarction, unspecified Qualifiers: CVA mechanism: unspecified Qualified Code(s): I63.9 - Cerebral infarction, unspecified Plan: As per HPI patient recently admitted to [facility] and October of 2023 for acute CVA. He has neurological deficit 0f dysarthria. Will be starting with speech therapy in mid November 2023. Also has follow-up with Neurology in the next 2 weeks. Continues on aspirin indefinitely, statin therapy and multiple blood pressure medication. Patient does understand the treatment for his stroke is aggressive risk modification. Orders: Orders US renal doppler 11/30/23 I10 - Essential (primary) hypertension Medications: New losartan-hydrochlorothiazide 100-12.5 mg 1 tab PO DAILY 30 days 30 tabs 0RF I10 - Essential (primary) hypertension Discontinued losartan Discontinued Reason: Doctor's Order 50 mg See Protocol PO DAILY 30 tabs 0RF Coding Level of Care Code Est Pt Level 4 (98238) Diagnoses Primary hypertension I10 Hypertension type: primary hypertension Cerebrovascular accident I63.9 CVA mechanism: unspecified Additional Codes ABDIAZIZ-7 Assessment Billing - ABDIAZIZ-7 Assessment Tool: ABDIAZIZ-7 Assessment 20163 ([id number])
[2023-11-30 13:27] VITALS: BP 191/108
== END 2023-11-30 13:57 | disposition home or self-care (01) ==
PROVIDERS: Visit Provider Physician Assistant
DX: I10 Essential (primary) hypertension (principal); I63.9 Cerebral infarction, unspecified
CPT/HCPCS: 99214

== ENCOUNTER 2023-12-10 06:56 | Outpatient (REF) | payer OTHER, SELFPAY ==
[2023-12-10 07:52] LABS: Hemoglobin 15.3 g/dl (14.0-18.0); Mean Corpuscular HGB Conc 34.8 g/dl (31.0-36.0); Mean Corpuscular Hemoglobin 32.8 pg (27.0-33.0); Mean Corpuscular Volume 94.4 fL (80.0-98.0); Mean Platelet Volume 9.5 fL (9.4-12.4); Platelet Count 204 X10*3/uL (160-400); Red Blood Count 4.66 X10*6/uL (4.60-5.80); Red Cell Distribution Width 11.9 % (11.0-16.0)
[2023-12-10 08:35] LABS: Alanine Aminotransferase 70 U/L (0-40); Albumin Level 4.2 g/dL (3.5-5.0); Alkaline Phosphatase 81 U/L (39-117); Anion Gap 12 (12-20); Aspartate Amino Transferase 30 U/L (5-37); Bilirubin Total 0.5 mg/dL (0.0-1.0); Blood Urea Nitrogen 15 mg/dL (9-16); Calcium 9.7 mg/dL (8.4-10.2); Carbon Dioxide 27 mmol/L (22-29); Chloride 104 mmol/L (96-108); Cholesterol 133 mg/dL (<200); Estimated Glomerular Filt Rate > 60; Glucose Fasting 99 mg/dL (60-99); HDL Cholesterol 49 mg/dL (>40); LDL Cholesterol Calculated 73 mg/dL (<100); Sodium 139 mmol/L (135-145); Total Protein 7.9 g/dL (6.5-8.0); Triglycerides 55 mg/dL (<150)
== END 2023-12-10 06:57 | disposition home or self-care (01) ==
LOC: HO.LAB 06:56
PROVIDERS: PCP Physician Assistant; Visit Provider Physician Assistant
DX: Z86.73 Personal history of transient ischemic attack (TIA), and cerebral infarction without residual deficits (principal)
CPT/HCPCS: 36415; 80053; 80061; 85027

== ENCOUNTER 2023-12-13 12:50 | Outpatient (AMB) | payer OTHER, SELFPAY ==
--- NOTE | 2023-12-13 13:01 | MHC.PC.OV ---
Vital Signs 12/13/23 13:02 Height 5 ft 11 in Weight 231 lb 2 oz BMI 32.2 BP 152/90 H Blood Pressure Location Lt brachial Position Sitting Pulse 76 Pulse Source Pulse Oximeter Pulse Oximetry (%) 99 Oxygen Delivery Method Room Air Intake Visit Reasons: f/u HTN/ CVA- labs review. (ok keiry christina) Canvas Goods Maker Required: No Accompanied by: Self / Same As Patient Allergies No Known Allergies Allergy (Verified 12/13/23 13:11) Medication List - Last Reconciled 12/13/23 by Kenneth Wang PA-C amlodipine 5 mg PO DAILY aspirin 81 mg PO DAILY atorvastatin 40 mg PO DAILY blood pressure monitor As directed blood pressure monitor (Blood Pressure Kit) As directed carvedilol 6.25 mg See Protocol PO BID losartan-hydrochlorothiazide 100-12.5 mg 1 tab PO DAILY 30 days Tobacco use date assessed: 11/30/23 Dental Screening Dental Screen Date: 12/13/23 Did you have a dental visit in the last 12 months?: No Did you have a dental problem in the last 6 months where you did not have access to dental care?: No Was dental information given to patient?: Patient declined HPI f/u HTN/ CVA- labs review. (ok per sanford) HPI Details Patient is a 43-year-old male here today for follow-up visit. Patient's past medical history significant for hypertension. CVA, . CVA: Had a stroke in October of 2023 due to uncontrolled blood pressure. Still suffers with dysarthria though a bit better Now currently trying to optimize his blood pressure med regime. At last visit we increased his losartan dose and started hydrochlorothiazide and blood pressures have been a bit better controlled though still elevated. Will increase his amlodipine to maximal dose of 10 mg. Has his 1st outpatient appointment with speech HTN: Blood pressure today in office still remains elevated. At last visit we increased his losartan dose and added hydrochlorothiazide 12.5 mg. Has been on a strict low-sodium diet. Home blood pressure readings still averaging above 140/90. Otherwise asymptomatic without any vision issues, chest discomfort, headaches. Laboratory Tests 11/06/23 11/06/23 11/07/23 15:41 20:10 05:14 RBC Creatinine Random Glucose AST ALT Cholesterol 176 LDL Cholesterol, C alc 113 H U Marijuana (THC) Screen POSITIVE H Ethyl Alcohol < 10 11/08/23 11/08/23 11/09/23 07:06 07:07 08:24 RBC 5.01 Creatinine Random Glucose 96 AST ALT 133 H Cholesterol LDL Cholesterol, C alc U Marijuana (THC) Screen Ethyl Alcohol 11/10/23 11/10/23 12/10/23 10:12 10:12 07:12 RBC 4.66 Creatinine 0.91 Random Glucose AST 57 H 30 ALT 118 H 70 H Cholesterol LDL Cholesterol, C alc U Marijuana (THC) Screen Ethyl Alcohol 12/10/23 07:12 RBC Creatinine Random Glucose AST ALT Cholesterol 133 LDL Cholesterol, C alc 73 U Marijuana (THC) Screen Ethyl Alcohol PFSH Medical History No pertinent past medical history Surgical History S/P femoral-popliteal bypass surgery Social History Household Members: None Housing: Apartment Do you presently have visiting nurse or other home services: No Patient Tobacco Use Status: Former Tobacco user Quit Date: 2018 Tobacco use type: Cigarette e-Cigarette/Vaping Use: Never Used service: No Current occupational status: unemployed Cognitive needs: No Hearing needs: No Vision needs: No Questionnaire Thrive Questionnaire Date Thrive assessed: 11/30/23 ABDIAZIZ-7 AMB Questionnaire ABDIAZIZ-7 Date ABDIAZIZ - 7 assessed: 11/30/23 Source: Developed by Drs. Lefty Mitchell, Kassi Robertson, Maksim Cannon and colleagues, with an educational lalo from [employer]. Review of Systems Const Denies headache(s) Eyes Denies loss of vision ENT Denies vertigo, Denies dizziness, Denies headache(s) and Denies sore throat Card Denies chest pain, Denies leg edema and Denies lightheadedness Resp Denies cough, Denies hemoptysis and Denies wheezing GI Denies abdominal pain, Denies melena, Denies constipation, Denies diarrhea and Denies vomiting Denies dysuria, Denies urinary frequency and Denies urinary urgency Musc Denies arthralgias, Denies joint swelling, Denies numbness and Denies tingling Neuro Denies Abnormal speech present, Denies behavioral changes, Denies vertigo, Denies dizziness, Denies headache(s), Denies loss of vision, Denies memory loss, Denies numbness and Denies tingling Psych Denies anxiety, Denies behavioral changes, Denies depression, Denies memory loss and Denies panic attacks Papo/Lymph Denies easy bleeding and Denies easy bruising Aller/Immun Denies wheezing Physical exam (Primary Care) Vital Signs: Last Vital Signs Pulse 76 12/13/23 13:02 BP 152/90 H 12/13/23 13:02 Pulse Ox 99 12/13/23 13:02 Oxygen Delivery Method Room Air 12/13/23 13:02 BMI result Body Mass Index 32.2 Tobacco/Smoking Status: Tobacco use Status Tobacco use date assessed 11/30/23 12/13/23 13:06 Patient Tobacco Use Status Former Tobacco user 12/13/23 13:06 Tobacco use type Cigarette 12/13/23 13:06 e-Cigarette/Vaping Use Never Used 12/13/23 13:06 Thrive Assessment: Date of Thrive Assessment Date Thrive assessed 11/30/23 12/13/23 13:06 Const General: healthy appearing, no acute distress, alert and awake Nutritional Appearance: well nourished Orientation/consciousness: oriented to person, oriented to place and oriented to time HENMT Ears: TM's normal bilaterally General nose exam: Normal nasal mucous membranes and turbinates present Eyes Conjunctivae: conjunctivae normal Sclerae: sclerae normal Pupils: Equal, round and reactive pupils present Neck Neck: Yes no lymphadenopathy and Yes no JVD Thyroid: Thyroid normal Carotids: no bruits Resp Effort & Inspection: normal respiratory effort and not tachypneic Auscultation: no crackles, no rales, no rhonchi and no wheezes Cardio Rate: regular rate Rhythm: regular rhythm Heart sounds: no murmurs and normal S1 and S2 GI Palpation (GI): Soft to palpation, nontender, no hepatomegaly and no splenomegaly Auscultation: normal bowel sounds Skin General skin exam: no rashes or lesions noted and dry skin Neuro General: oriented to person, oriented to place and oriented to time Cranial nerves: Yes Equal, round and reactive pupils present Speech: No Abnormal speech present Gait exam (Neuro): Normal gait present Motor exam (neuro): no tremor noted Extrem Right upper extremity: full ROM Left upper extremity: full ROM Right lower extremity: full ROM; no edema Left lower extremity: full ROM; no edema Psych Mental Status: mental status grossly normal Speech and movement: Normal speech and movement present Affect: normal affect Attitude: cooperative Thought process: Normal thought process present Assessment and Plan Assessment & Plan (1) HTN (hypertension): Code(s): I10 - Essential (primary) hypertension Qualifiers: Hypertension type: primary hypertension Qualified Code(s): I10 - Essential (primary) hypertension Plan: Pressure remains elevated though has been a bit better controlled.. Will increase his amlodipine dose to 10 mg.. Blood pressures at home still remaining above 140/90. Patient asymptomatic. Awaiting Doppler renal ultrasound to evaluate for renal artery stenosis Goal blood pressures to be below 140/90 consistently. (2) Cerebrovascular accident: Code(s): I63.9 - Cerebral infarction, unspecified Qualifiers: CVA mechanism: unspecified Qualified Code(s): I63.9 - Cerebral infarction, unspecified Plan: As per HPI patient recently admitted to [facility] and October of 2023 for acute CVA. He has neurological deficit 0f dysarthria. Will be starting with speech therapy today Continues on aspirin indefinitely, statin therapy and multiple blood pressure medication. Patient does understand the treatment for his stroke is aggressive risk modification. (3) Obese: Code(s): E66.9 - Obesity, unspecified Qualifiers: Obesity type: due to excess calories Obesity classification: adult class 1 (BMI 30 - 34.9) Serious obesity comorbidity presence: with serious comorbidity Body mass index: BMI 31.0-31.9 Qualified Code(s): E66.09 - Other obesity due to excess calories; Z68.31 - Body mass index [BMI] 31.0-31.9, adult Plan: Patient does understand his BMI is over 30 will continue working on better eating habits to reduce his weight. Medications: New amlodipine 10 mg PO DAILY 30 days 30 tabs 3RF I10 - Essential (primary) hypertension Discontinued amlodipine Discontinued Reason: Doctor's Order 5 mg PO DAILY 30 tabs 1RF I10 - Essential (primary) hypertension Coding Level of Care Code Est Pt Level 3 (93090) Diagnoses Primary hypertension I10 Hypertension type: primary hypertension Cerebrovascular accident I63.9 CVA mechanism: unspecified Class 1 obesity due to excess calories with serious comorbidity and body mass index (BMI) of 31.0 to 31.9 in adult E66.09; Z68.31 Obesity type: due to excess calories Obesity classification: adult class 1 (BMI 30 - 34.9) Serious obesity comorbidity presence: with serious comorbidity Body mass index: BMI 31.0-31.9
[2023-12-13 13:02] VITALS: BP 152/90; PULSE 76; O2SAT 99; BMI 32.2
== END 2023-12-13 13:27 | disposition home or self-care (01) ==
PROVIDERS: Visit Provider Physician Assistant
DX: I10 Essential (primary) hypertension (principal); I69.322 Dysarthria following cerebral infarction; E66.09 Other obesity due to excess calories; Z68.31 Body mass index [BMI] 31.0-31.9, adult
CPT/HCPCS: 99213

== ENCOUNTER 2023-12-13 14:00 | Outpatient (RCR) | payer OTHER, SELFPAY ==
[2023-12-13 17:38] LABS: Creatinine Urine 237.52 mg/dL; Microalbum/Creatinine Ratio Ur 11.7 ug/mg cr (<30)
--- NOTE | 2023-12-28 12:36 | MHC.SP.ADU ---
Referring provider: Kenneth Wang PA-C Reason for Referral: Recent R-MCA CVA Type of Treatment: 56417 Evaluation of Speech Sound Production Date of Plan of Treatment: 12/13/23 Onset of Symptoms/Illness: 12/13/23 Date Treatment Started: 12/13/23 Medical Diagnosis: High blood pressure. 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 Guadalupe recently suffered a R-MCA CVA and was Hospitalized at this facility. Per initial H&P: Pt is a 43-year-old male with no known significant PMH not on any home medications who has not seen a PCP in 15+ years who presents to the ED for evaluation of left-sided facial droop and dysarthria. Patient states he went to bed on Tuesday night in his normal state of health but when he awoke on Tuesday morning he found he had left-sided facial droop and difficulty speaking. Denies numbness and tingling in extremities or hemiparesis. No headache or acute vision changes. Patient did not present to the emergency department yesterday as he believed his condition was caused by his wisdom teeth. Patient states he could feel his teeth were not lining up properly and he thought this was making it difficult to speak. Presented to the ED today after symptoms persisted this morning and after speaking with his parents who encouraged him to get evaluated. Denies chest pain/pressure, palpitations. No shortness of breath. Has a remote history of smoking, since stopped ?years? ago. Does drink on the weekends, on Tuesday, Tuesday, and Tuesday. Denies any illicit substances. Of note, patient emotionally labile in the ED, often uncontrollably crying. Has also experienced extremely high blood pressures, up to 224/152. He was seen by Neuro on 11/18/23: 43-year-old man with uncontrolled hypertension and atherosclerotic small-vessel disease with chronic left thalamic lacunar type infarct came to hospital with uncontrolled blood pressure and left-sided facial weakness with dysarthria. Imaging reveals subacute right thalamic lesion. He probably had another ischemic infarction. Mainstay of management is proper understanding of his condition, baby aspirin daily, blood pressure control, and statin. An MRI of brain without contrast his also recommend . MRI, also 11/07/24 showed: Limited motion degraded exam. Multiple lacunar infarcts are noted within the central amarjit, left lentiform nucleus, and bilateral thalamic. The ventricles and sulcal spaces are proportional. No midline shift. No demonstrated abnormal mass effect. The cerebellar tonsils are normally positioned. He arrives with his Mother. By report he has been meeting with his new PCP to control his blood pressure, and is eager to begin Speech Therapy. He has no current plans to return to work. Medical History: Cardiovascular Disease High Blood Pressure Other: Medication List: Recent Hospitalizations: Yes: R-CVA Respiratory Needs: Room Air Patient Orientation: Alert & Oriented x 4 Social History: Employment Status: Unemployed Highest level of education obtained: Completed High School/GED Current Living Situation: Home with Family. Assistive Devices in use: Comment: Unknown Past Speech Language Therapy: Seen by BOX LINING MACHINE FEEDER during inpatient stay. Recommended outpatient Speech Therapy. Other Therapies Seen in Current Calendar Year: None Other: Evaluated by PT/OT during admission with no services recommended. Swallowing History: Dysphagia Specific: Within Functional Limits Comments: Pre-eval Risk for Aspiration: None Pre-evaluation Dietary Consistencies: Regular Pre-eval Liquid Intake: Thin Pre-eval Medication Intake: Reported Speech, Language, Cognition difficulties: Memory Speaking Comments: Quality of Life: Patient Stated Goal of Speech-Language Therapy: Mr. Hernandez is seeking to improve his articulatory precision. Assessment Speech Production: Dysarthric Clinical Impression: Impaired Observations: Mild impairment impacting complex articulatory targets including affricates and /s/-clusters. Informal Voice Assessment: Voice Loudness: Normal Voice Nasal Resonance: Normal Voice Oral Resonance: Normal Voice Phonatory-based Quality: Normal Voice Pitch: Normal Voice Other Observations: Clinical Impression: Did Not Test Clinicial Observations: Testing not indicated. Tests of Speech & Lang Adults: Clinical Impression: Did Not Test Observations: Testing not indicated. Tests of Cognition: RBANS Clinical Impression: Impaired Observations: Loco participated in the RBANS - Update, Form A to rule-out any subtle cognitive deficits resulting from his right-hemisphere stroke. He scores are reported as follows: R-BANS Update I.) Immediate Memory Index: 65 Ia.) List Learning: -- Scaled Score: 3 Ib.) Story Memory: -- Scaled Score: 5 II.) Visuospatial/Constructional Index: 66 IIa.) Figure/Copy: -- Scaled Score: 1 IIb.) Line Orientation: -- Percentile Group: 26-50 III.) Language Index: 98 IIIa.) Picture Naming: -- Percentile Group: 51-75 IIIb.) Semantic Fluency: -- Scaled Score: 7 IV.) Attention Index: 94 Shailesh.) Digit Span: -- Scaled Score: 9 IVb.) Coding: -- Scaled Score: 9 V.) Delayed Memory Index: 52 Va.) List Recall: -- Percentile Group: 3-9 Vb.) List Recognition: -- Percentile Group: <2 Vc.) Story Recall: -- Scaled Score: 4 Vd.) Figure Recall: -- Scaled Score: 4 Total Scale Score: 67 (%ile: 1) SUMMARY: Loco demonstrated an overall scaled score which is significantly below average for his age and education level. He demonstrated strengths in Language (SS=91) and Attention (SS=94), both of which are well with in the normal range. He difficulty across the domains of Immediate (SS=65) and Delayed Memory (SS=66) and Visuospatial Construction (SS=52). Subtest analysis reveals that List and Story Recognition in the Delayed Memory Domain, as well as imprecise placement of elements in the figure recall significantly impacted his score. During testing, he did not seem to notice any difficulties he encountered, and when asked about his performance he said, I wouldn't have gotten any of those before anything happened anyway . 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 It is likely that these deficits and are newly acquired from his right-hemisphere injury. He is not seeking employment at this time, so they may not effect him in his daily life. However, they provide better understanding of the accommodations he will need to be successful in therapy, including additional bio-feedback and external supports drive his practice and awareness. Augmentative and Alternative Communication: Did Not Test Observations: Testing not indicated. Impressions and Recommendations Summary: Impact on Daily Function/Activity Limitations: Daily Activities: Mild Interpersonal Interactions: Mild Education: None Employment: None Community: Mild Prognosis for Improvement: Good Comment: Recommendation for Speech Therapy: Outpatient Speech Therapy Frequency/Duration: 1 x week x 12 weeks Date Range for Service Requested: 12/13/23 - 03/13/24 Time to Reassess: 3 months Instrument Lens Grinder Apprentice Goals: LTG1: Loco will improve intelligibility with >80% of contexts independently. Short Term Goals: Goal # : STG1: Loco will demonstrate back lingual and facial exercises with >80% accuracy after a training period. Goal Status: New Goal Goal# : STG2: Loco will read passages of increasing complexity and length with >80% accuracy with x1 cue per Speech error. Goal Status: New Goal Goal # : STG3: Loco will complete assigned HEP and return with it at his next session with >80% accuracy. Goal Status: New Goal Recommended Referrals to be Discussed with Primary Care Provider: Patient Education: Completed: Yes Patient/Caregiver Education: Described Results of Evaluation Patient expressed understanding of evaluation Patient agrees with goals and treatment plan Patient requires further education on strategies Comments/Barriers to Learning: Supervisor Paper Machine Clinican/Clinical Fellow: No Supervisory Statement: N/A Speech Language Pathologist: Ray Siu M.A., CCC-BOX LINING MACHINE FEEDER
== END 2023-12-30 14:11 | disposition still patient (30) ==
LOC: HO.SH 14:00
PROVIDERS: Visit Provider Physician Assistant
DX: I63.9 Cerebral infarction, unspecified (principal)
CPT/HCPCS: 82043; 82570; 92522

== ENCOUNTER 2023-12-22 09:40 | Outpatient (REF) | payer OTHER, SELFPAY ==
--- NOTE | ~2023-12-22 | US_ITS ---
EXAMINATION: ULTRASOUND RENAL WITH DOPPLER CLINICAL INFORMATION: Essential hypertension. Evaluate for renal artery stenosis. COMPARISON: None. TECHNIQUE: Real-time grayscale, color Doppler, and duplex Doppler evaluation of the kidneys and renal vasculature was performed. FINDINGS: RENAL MEASUREMENTS: Right: 11.4 x 6.2 x 5.7 cm (Sag x AP x TV) Left: 12.4 x 6.3 x 6.1 cm (Sag x AP x TV) The renal parenchyma appears normal. No hydronephrosis or nephrolithiasis. DOPPLER INTERROGATION: AORTA: Mid aorta: 98 cm/sec RIGHT MAIN RENAL ARTERY: Proximal: 164 cm/sec Mid: 145 cm/sec Distal: 197 cm/sec LEFT MAIN RENAL ARTERY: Proximal: 161 cm/sec Mid: 234 cm/sec Distal: 150 cm/sec RENAL-AORTIC RATIO (RAR): Right: 2.0 Left: 2.4 SEGMENTAL RESISTIVE INDICES: Right: 0.59-0.64 Left: 0.61-0.66 RENAL VEINS: Right: Patent with normal waveform. Left: Patent with normal waveform. US/US renal BI IMPRESSION: Elevated velocities in the distal right and mid left renal artery raises the possibility of underlying stenotic disease. Recommend further evaluation with CTA or MRA of the abdomen and pelvis without and with intravenous contrast.
--- NOTE | ~2023-12-22 | US_ITS ---
EXAMINATION: ULTRASOUND RENAL WITH DOPPLER CLINICAL INFORMATION: Essential hypertension. Evaluate for renal artery stenosis. COMPARISON: None. TECHNIQUE: Real-time grayscale, color Doppler, and duplex Doppler evaluation of the kidneys and renal vasculature was performed. FINDINGS: RENAL MEASUREMENTS: Right: 11.4 x 6.2 x 5.7 cm (Sag x AP x TV) Left: 12.4 x 6.3 x 6.1 cm (Sag x AP x TV) The renal parenchyma appears normal. No hydronephrosis or nephrolithiasis. DOPPLER INTERROGATION: AORTA: Mid aorta: 98 cm/sec RIGHT MAIN RENAL ARTERY: Proximal: 164 cm/sec Mid: 145 cm/sec Distal: 197 cm/sec LEFT MAIN RENAL ARTERY: Proximal: 161 cm/sec Mid: 234 cm/sec Distal: 150 cm/sec RENAL-AORTIC RATIO (RAR): Right: 2.0 Left: 2.4 SEGMENTAL RESISTIVE INDICES: Right: 0.59-0.64 Left: 0.61-0.66 RENAL VEINS: Right: Patent with normal waveform. Left: Patent with normal waveform. US/US renal doppler IMPRESSION: Elevated velocities in the distal right and mid left renal artery raises the possibility of underlying stenotic disease. Recommend further evaluation with CTA or MRA of the abdomen and pelvis without and with intravenous contrast.
== END 2023-12-22 09:41 | disposition home or self-care (01) ==
LOC: HO.HMGCX 09:40
PROVIDERS: PCP Physician Assistant; Visit Provider Physician Assistant
DX: I10 Essential (primary) hypertension (principal)
CPT/HCPCS: 76775; 93975

== ENCOUNTER 2024-02-07 09:03 | Outpatient (REF) | payer OTHER, SELFPAY ==
--- NOTE | ~2024-02-07 | CT_ITS ---
EXAMINATION: CT ANGIOGRAM ABDOMEN CLINICAL INFORMATION: Renal artery stenosis, hypertension COMPARISON: Duplex ultrasound from 12/22/2023 TECHNIQUE: Multiple axial images were obtained through the abdomen following the administration of 80 mL Omnipaque 350 intravenous contrast. Images were reviewed on a dedicated 3-D workstation. This CT examination was performed using dose optimization techniques as appropriate, variously including the following: *Automated exposure control *Adjustment of mA and/or kV according to patient size (this includes techniques or standardized protocols for targeted exams where dose is matched to indication/reason for exam; i.e. extremities or head) *Use of iterative reconstruction technique DLP: 201 mGy-cm VASCULAR: ABDOMINAL AORTA: Normal caliber and widely patent. No significant atherosclerotic plaque. The visualized iliac arteries are normal in caliber CELIOMESENTERIC ARTERIES: Celiac artery, superior mesenteric artery and inferior mesenteric artery are normal caliber. No underlying aneurysms or vessel irregularity. RENAL ARTERIES: There are single bilateral renal arteries. Renal arteries are widely patent and normal caliber. No evidence of underlying aneurysms. No vessel irregularity or wall thickening. NONVASCULAR: Lung Bases: The visualized lung bases are unremarkable. Liver, Gallbladder and Biliary Tree: The liver is normal in size, shape, and attenuation. No focal hepatic lesion or biliary ductal dilatation is present. The gallbladder is unremarkable with no evidence of radiopaque gallstones, gallbladder wall thickening, or obvious pericholecystic inflammatory changes. Pancreas: Unremarkable. Spleen: Unremarkable. Adrenal Glands: Unremarkable. Kidneys and Ureters: The kidneys are normal in size, shape, and attenuation. No hydronephrosis, hydroureter, or calculi seen. No perinephric stranding. Gastrointestinal Tract: The visualized small and large bowel are unremarkable. Abdominal Wall: No significant hernia is appreciated. Osseous Structures: Unremarkable. CT/CT angio abdomen IMPRESSION: No significant abnormality. Bilateral renal arteries are widely patent without underlying stenosis
[2024-02-07] MEDS: iohexoL 350 MG/ML 100 ML INFUS..BTL IV (09:51)
== END 2024-02-07 09:04 | disposition home or self-care (01) ==
LOC: HO.CT 09:03
PROVIDERS: Visit Provider Physician Assistant
DX: I10 Essential (primary) hypertension (principal); I70.1 Atherosclerosis of renal artery
CPT/HCPCS: 74175; Q9967

== ENCOUNTER 2024-02-13 13:29 | Outpatient (AMB) | payer OTHER, SELFPAY ==
[2024-02-13 13:35] VITALS: BP 162/102; PULSE 66; O2SAT 98; BMI 31.2
--- NOTE | 2024-02-13 13:35 | MHC.PC.OV ---
Vital Signs 02/13/24 13:35 Height 5 ft 11 in Weight 224 lb BMI 31.2 BP 162/102 H Blood Pressure Location Lt brachial Position Sitting Pulse 66 Pulse Source Pulse Oximeter Pulse Oximetry (%) 98 Oxygen Delivery Method Room Air Comment Pt had a 20oz of bloack ice coffee 1hrs prior to appt. Intake Visit Reasons: f/u HTN Hazardous Substances Scientist Required: No Accompanied by: Self / Same As Patient Allergies No Known Allergies Allergy (Verified 02/13/24 13:57) Medication List - Last Reconciled 02/13/24 by Kenneth Wang PA-C amlodipine 10 mg PO DAILY 90 days aspirin 81 mg PO DAILY 90 days atorvastatin 40 mg PO DAILY 90 days blood pressure monitor As directed blood pressure monitor (Blood Pressure Kit) As directed carvedilol 6.25 mg See Protocol PO BID 90 days losartan-hydrochlorothiazide 100-12.5 mg 1 tab PO DAILY 90 days Tobacco use date assessed: 11/30/23 Dental Screening Dental Screen Date: 02/13/24 Did you have a dental visit in the last 12 months?: Yes Did you have a dental problem in the last 6 months where you did not have access to dental care?: No Was dental information given to patient?: Patient has dentist HPI f/u HTN HPI Details Patient is a 43-year-old male here today for follow-up visit. Patient's past medical history significant for hypertension. CVA, . CVA: Had a stroke in October of 2023 due to uncontrolled blood pressure. Still suffers with dysarthria though a bit better. SPEECH THERAPIST CONCERNED ABOUT HIS HYPERNASALITY- ENT referral placed Now currently trying to optimize his blood pressure med regime. At last visit we increased his losartan dose and started hydrochlorothiazide and blood pressures have been a bit better controlled though still elevated. HTN: Blood pressure today in office still remains elevated. He reports he had a large cup of coffee before visit today.. Home blood pressure readings brought in today are 110-120 systolic. At last visit we increased his losartan dose and added hydrochlorothiazide 12.5 mg. Has been on a strict low-sodium diet. Home blood pressure readings still averaging above 140/90. Otherwise asymptomatic without any vision issues, chest discomfort, headaches. He has undergone on renal ultrasound that did show some suggestive evidence of renal artery stenosis. CT angio of abdomen without any evidence of stenosis in the renal arteries. [facility] Medical History No pertinent past medical history Surgical History S/P femoral-popliteal bypass surgery Social History Household Members: None Housing: Apartment Do you presently have visiting nurse or other home services: No Patient Tobacco Use Status: Former Tobacco user Quit Date: 2018 Tobacco use type: Cigarette e-Cigarette/Vaping Use: Never Used service: No Current occupational status: unemployed Cognitive needs: No Hearing needs: No Vision needs: No Questionnaire Thrive Questionnaire Date Thrive assessed: 11/30/23 ABDIAZIZ-7 AMB Questionnaire ABDIAZIZ-7 Date ABDIAZIZ - 7 assessed: 11/30/23 Source: Developed by Drs. Lefty Mitchell, Kassi Robertson, Maksim Cannon and colleagues, with an educational lalo from [email or web address]. Review of Systems Const Denies headache(s) Eyes Denies loss of vision ENT Denies vertigo, Denies dizziness, Denies headache(s) and Denies sore throat Card Denies chest pain, Denies leg edema and Denies lightheadedness Resp Denies cough, Denies hemoptysis and Denies wheezing GI Denies abdominal pain, Denies melena, Denies constipation, Denies diarrhea and Denies vomiting Denies dysuria, Denies urinary frequency and Denies urinary urgency Musc Denies arthralgias, Denies joint swelling, Denies numbness and Denies tingling Neuro Denies Abnormal speech present, Denies behavioral changes, Denies vertigo, Denies dizziness, Denies headache(s), Denies loss of vision, Denies memory loss, Denies numbness and Denies tingling Psych Denies anxiety, Denies behavioral changes, Denies depression, Denies memory loss and Denies panic attacks Papo/Lymph Denies easy bleeding and Denies easy bruising Aller/Immun Denies wheezing Physical exam (Primary Care) Vital Signs: Last Vital Signs Pulse 66 02/13/24 13:35 BP 162/102 H 02/13/24 13:35 Pulse Ox 98 02/13/24 13:35 Oxygen Delivery Method Room Air 02/13/24 13:35 BMI result Body Mass Index 31.2 Tobacco/Smoking Status: Tobacco use Status Tobacco use date assessed 11/30/23 02/13/24 13:42 Patient Tobacco Use Status Former Tobacco user 02/13/24 13:42 Tobacco use type Cigarette 02/13/24 13:42 e-Cigarette/Vaping Use Never Used 02/13/24 13:42 Thrive Assessment: Date of Thrive Assessment Date Thrive assessed 11/30/23 02/13/24 13:42 Const General: healthy appearing, no acute distress, alert and awake Nutritional Appearance: well nourished Orientation/consciousness: oriented to person, oriented to place and oriented to time HENMT Ears: TM's normal bilaterally General nose exam: Normal nasal mucous membranes and turbinates present Eyes Conjunctivae: conjunctivae normal Sclerae: sclerae normal Pupils: Equal, round and reactive pupils present Neck Neck: Yes no lymphadenopathy and Yes no JVD Thyroid: Thyroid normal Carotids: no bruits Resp Effort & Inspection: normal respiratory effort and not tachypneic Auscultation: no crackles, no rales, no rhonchi and no wheezes Cardio Rate: regular rate Rhythm: regular rhythm Heart sounds: no murmurs and normal S1 and S2 GI Palpation (GI): Soft to palpation, nontender, no hepatomegaly and no splenomegaly Auscultation: normal bowel sounds Back/Spine/Pelvis Back/spine/pelvis image: 1. SUBCUTANEOUS PALPABLE LUMP OVER UPPER MID BACK. NO OVERLYING/SURROUNDING ERYTHEMA Skin General skin exam: no rashes or lesions noted and dry skin Neuro General: oriented to person, oriented to place and oriented to time Cranial nerves: Yes Equal, round and reactive pupils present Speech: No Abnormal speech present Gait exam (Neuro): Normal gait present Motor exam (neuro): no tremor noted Extrem Right upper extremity: full ROM Left upper extremity: full ROM Right lower extremity: full ROM; no edema Left lower extremity: full ROM; no edema Psych Mental Status: mental status grossly normal Speech and movement: Normal speech and movement present Affect: normal affect Attitude: cooperative Thought process: Normal thought process present Assessment and Plan Assessment & Plan (1) HTN (hypertension): Code(s): I10 - Essential (primary) hypertension Qualifiers: Hypertension type: primary hypertension Qualified Code(s): I10 - Essential (primary) hypertension Plan: Patient's blood pressure in office elevated today. He reports he had large coffee about an hour ago. He brings in his home readings that are 110-120s systolic. He otherwise denies any headache, dizziness, chest pains or syncopal episodes. Renal ultrasound showed some possible evidence of renal artery stenosis thus CT and she of abdomen done that showed patent renal arteries. He dose Have follow-up with vascular surgeon. Will continue his current blood pressure med regime with goal blood pressure to be below 140/90 (2) Cerebrovascular accident: Code(s): I63.9 - Cerebral infarction, unspecified Qualifiers: CVA mechanism: unspecified Qualified Code(s): I63.9 - Cerebral infarction, unspecified Plan: He continues to follow-up with speech therapy whom were concerned about his hypernasality of his voice. Recommending an ENT evaluation Continues on aspirin indefinitely, statin therapy and multiple blood pressure medication. Patient does understand the treatment for his stroke is aggressive risk modification. (3) Obese: Code(s): E66.9 - Obesity, unspecified Qualifiers: Obesity type: due to excess calories Obesity classification: adult class 1 (BMI 30 - 34.9) Serious obesity comorbidity presence: with serious comorbidity Body mass index: BMI 31.0-31.9 Qualified Code(s): E66.09 - Other obesity due to excess calories; Z68.31 - Body mass index [BMI] 31.0-31.9, adult Plan: Patient does understand his BMI is over 30 will continue working on better eating habits to reduce his weight. (4) Epidermoid cyst of skin of back: Code(s): L72.0 - Epidermal cyst Plan: Has an upper mid back cystic like structure. He would like removal from general surgeon. Orders: Orders Lipid Panel Today I10 - Essential (primary) hypertension Complete Blood Count no Diff Today I63.9 - Cerebral infarction, unspecified Comprehensive Harriet. Panel Fast Today I63.9 - Cerebral infarction, unspecified Microalbumin, Random (w Creat) Today I10 - Essential (primary) hypertension Referrals General Surgery Referral L72.0 - Epidermal cyst Coding Level of Care Code Est Pt Level 4 (54047) Diagnoses Primary hypertension I10 Hypertension type: primary hypertension Cerebrovascular accident I63.9 CVA mechanism: unspecified Class 1 obesity due to excess calories with serious comorbidity and body mass index (BMI) of 31.0 to 31.9 in adult E66.09; Z68.31 Obesity type: due to excess calories Obesity classification: adult class 1 (BMI 30 - 34.9) Serious obesity comorbidity presence: with serious comorbidity Body mass index: BMI 31.0-31.9 Epidermoid cyst of skin of back L72.0
== END 2024-02-13 14:13 | disposition home or self-care (01) ==
PROVIDERS: PCP Physician Assistant; Visit Provider Physician Assistant
DX: I10 Essential (primary) hypertension (principal); I69.328 Other speech and language deficits following cerebral infarction; E66.09 Other obesity due to excess calories; Z68.31 Body mass index [BMI] 31.0-31.9, adult; L72.0 Epidermal cyst
CPT/HCPCS: 99214

== ENCOUNTER 2024-02-14 13:56 | Outpatient (AMB) | payer OTHER, SELFPAY ==
--- NOTE | 2024-02-14 14:32 | MHC.OFFVIS ---
Intake Intake Visit Reasons: Follow Up 02/06 CTA Abdomen Intake Note: Patient presents for follow up s/p 02/06 CTA ABD. Patient states he does not have any pain. Spoke to his primary care physician Trung Wang who informed him it was fine Accompanied by: Self / Same As Patient Allergies No Known Allergies Allergy (Verified 02/14/24 14:34) HPI Follow Up 02/06 CTA Abdomen HPI Details Very pleasant 43-year-old gentleman presents for follow-up evaluation regarding renal arteries. Had uncontrolled hypertension and had a prior duplex ultrasound on 12/22/2023. There was some concern of renal artery stenosis. Subsequent to that he underwent CT angio of the abdomen now presents to us for follow-up. [facility] Medical History (Updated 02/17/24 @ 10:33 by Deepak Brooks MD) Hypertension, uncontrolled No pertinent past medical history Surgical History S/P femoral-popliteal bypass surgery Social History Household Members: None Housing: Apartment Do you presently have visiting nurse or other home services: No Patient Tobacco Use Status: Former Tobacco user Quit Date: 2018 Tobacco use type: Cigarette e-Cigarette/Vaping Use: Never Used service: No Current occupational status: unemployed Cognitive needs: No Hearing needs: No Vision needs: No Review of Systems Const All systems reviewed & are unremarkable except as noted in HPI and below Reports no additional complaints ENT Reports Normal hearing present Card Denies chest pain, Denies chest pain at rest, Denies chest pain with activity and Denies pedal edema Resp Denies cough GI Denies abdominal pain Musc Denies abnormal gait, Denies muscle cramps and Denies radiating pain into limb Skin/Breast Denies skin ulcer and Denies wounds Neuro Reports Normal hearing present and Denies abnormal gait Psych Reports no additional complaints Physical Exam Const General: cooperative, healthy appearing and comfortable Orientation/consciousness: oriented to person, oriented to place and oriented to time HEENT Head: Yes normal to inspection Neck Neck: Yes normal visual inspection Carotids: no bruits Chest Chest palpation & inspection: normal inspection of the chest Resp Effort & Inspection: normal respiratory effort and able to speak in complete sentences Auscultation: clear to auscultation bilaterally, no crackles, no rales, no rhonchi and no wheezes Cardio Rate: regular rate Rhythm: regular rhythm Heart sounds: S1 normal heart sound present and S2 normal heart sound present Bruits: no carotid bruits Peripheral pulses: Peripheral pulses 2+ throughout GI Inspection: Yes normal to inspection Skin Wounds: no wounds Hair: normal Neuro General: oriented to person, oriented to place and oriented to time Cranial nerves: Yes CN's II-XII intact bilaterally and Yes Normal hearing present Cognition (Neuro): normal cognition Motor exam (neuro): 5/5 motor strength present throughout Extrem Other: venous exam: No significant superficial varicosities or spider telangiectasias, minimal edema General: No clubbing, No cyanosis and No edema Psych Appearance: grossly normal Mental Status: mental status grossly normal Speech and movement: Normal speech and movement present Results Reviewed Results Reviewed: CT angiogram dated 02/07/2024 demonstrates widely patent renal arteries with no significant disease. Assessment & Plan Assessment & Plan (1) Hypertension, uncontrolled: Code(s): I10 - Essential (primary) hypertension Plan: In short patient has uncontrolled hypertension. It does not appear to be from the renal arteries. Would recommend continued medical management. This was discussed in detail with the patient. He will follow up with us on an as-needed basis. Thank you for allowing us to assist in his care. Coding Level of Care Code Est Pt Level 4 (18759) Diagnoses Hypertension, uncontrolled I10
== END 2024-02-14 14:49 | disposition home or self-care (01) ==
PROVIDERS: PCP Physician Assistant; Visit Provider Surgery Vascular Surgery
DX: I10 Essential (primary) hypertension (principal)
CPT/HCPCS: 99213

== ENCOUNTER → 2024-02-14 13:56 | Outpatient (BNVA) | payer OTHER, SELFPAY | PROVIDERS: PCP Physician Assistant; Visit Provider Surgery Vascular Surgery | DX: I10 Essential (primary) hypertension (principal); Z95.820 Peripheral vascular angioplasty status with implants and grafts | CPT/HCPCS: 99212 ==

== ENCOUNTER 2024-02-21 13:17 | Outpatient (AMB) | payer OTHER, SELFPAY ==
--- NOTE | 2024-02-21 13:18 | A.OFFVIS_ITS ---
Intake Vital Signs 02/21/24 13:22 Height 5 ft 11 in Weight 224 lb 0.011 oz BMI 31.2 Intake Visit Reasons: EIC~ Mid upper back Intake Note: Patient referred by PCP Kenneth Wang for cyst on mid upper back. Patient c/o: reports no pain or discomfort at this time, cyst mid upper back. Inspector Technician Required: No Accompanied by: Self / Same As Patient Allergies No Known Allergies Allergy (Verified 02/21/24 13:22) HPI HPI Comments History of Present Illness Details Patient presents with a mid back cyst which he has had many years time. His increasing in size, become more symptomatic. He wished to have it excised. He has no such lesions elsewhere. Chart was reviewed and patient evaluated [facility] Medical History (Updated 02/17/24 @ 10:33 by Deepak Brooks MD) Hypertension, uncontrolled No pertinent past medical history Surgical History S/P femoral-popliteal bypass surgery Social History Household Members: None Housing: Apartment Do you presently have visiting nurse or other home services: No Patient Tobacco Use Status: Former Tobacco user Quit Date: 2018 Tobacco use type: Cigarette e-Cigarette/Vaping Use: Never Used service: No Current occupational status: unemployed Cognitive needs: No Hearing needs: No Vision needs: No Physical Exam Vital Signs: BMI result Body Mass Index 31.2 Const Other: Patient is status post CVA and has some verbal limitations Chest Other: Chest breath sounds bilaterally, HS 1 in 2 GI Other: Abdomen is soft, benign Back/Spine/Pelvis Other: Patient has a mid back large sebaceous cyst measuring approximately 4 x 3 cm. Assessment & Plan Assessment & Plan (1) Epidermoid cyst of skin of back: Code(s): L72.0 - Epidermal cyst Plan Because of the size of this cyst, I recommend the patient undergo excision and ambulatory setting. Risks, benefits, alternatives of wide local excision of mid back sebaceous cyst reviewed with the patient and included but not limited to bleeding, infection, recurrence, numbness, pain, scarring, seroma formation, wound dehiscence and the patient wishes to proceed. All questions answered. Arrangements were made for this. I also instructed him that he will need to avoid strenuous activities for at least 2 weeks postoperatively to avoid any wound issues Coding Level of Care Code New Pt Level 5 (88884) Diagnoses Epidermoid cyst of skin of back L72.0
[2024-02-21 13:22] VITALS: BMI 31.2
== END 2024-02-21 13:34 | disposition home or self-care (01) ==
PROVIDERS: PCP Physician Assistant; Referring Provider Physician Assistant; Visit Provider Surgery
DX: L72.0 Epidermal cyst (principal)
CPT/HCPCS: 99204

== ENCOUNTER → 2024-02-21 13:17 | Outpatient (BNVA) | payer OTHER, SELFPAY | PROVIDERS: PCP Physician Assistant; Referring Provider Physician Assistant; Visit Provider Surgery | DX: L72.0 Epidermal cyst (principal) | CPT/HCPCS: 99202 ==

== ENCOUNTER → 2024-03-16 09:38 | Day surgery (SDC) | payer OTHER, SELFPAY ==
[2024-03-14 14:43] VITALS: BMI 31.2
--- NOTE | 2024-03-15 06:46 | MHC.SHP ---
Pre-Procedural Eval Section A - 24 Hr Update-Section A only Date of Service: 03/15/24 The patient is an INPATIENT: No Changes since office visit: No Cold of Flu in the past 2 weeks, No New Medical Problems, No Changes in Medication and No Patient answered all questions Section B - Complete if H&P > 30 days Chief Complaint: Epidermal cyst Allergies: Allergies Allergy/AdvReac Type Severity Reaction Status Date / Time No Known Allergies Allergy Verified 02/21/24 13:22 Plan I have reviewed the history and physical and performed a pertinent physical examination on my patient. No changes have occurred unless specified. Time Spent With Patient Time: Total time managing care of this patient today ____ minutes.
[2024-03-16 10:14] VITALS: BMI 30.7
[2024-03-16 10:30] VITALS: BP 159/95; PULSE 67; RESP 16; TEMP 36.6; O2SAT 95
[2024-03-16] MEDS: Lactated Ringers 1,000 ML 80 ML IVCONT (10:33)
--- NOTE | 2024-03-16 12:16 | PC.NURSE ---
Case cancelled by Dr. Linda pt advised office will call to reschedule. IV discontinued prior to leaving.
== END ==
PROVIDERS: PCP Physician Assistant; Visit Provider Surgery
DX: L72.0 Epidermal cyst (principal); Z53.8 Procedure and treatment not carried out for other reasons
CPT/HCPCS: J0690

== ENCOUNTER 2024-03-22 13:00 | Outpatient (RCR) | payer OTHER, SELFPAY ==
--- NOTE | 2024-05-10 14:41 | MHC.SL.SOA ---
Referring Provider: Kenneth Wang PA-C Reason for Referral: Recent R-MCA CVA Date of Plan of Treatment:12/13/23 Onset of Symptoms/Illness:12/13/23 Date Treatment Started:12/13/23 Medical Diagnosis:Dysarthria Primary Speech Language Diagnosis:R47.1 Dysarthria Number of Authorized Visits Remainin Reason for Visit:22499 Individual Treatment Subjective:This is an administrative discharge for Loco Guadalupe. Objective: At discharge Loco was stimulable for all target sounds at the word and sentence level. He will continue to have to self-monitor performance at the conversation level. He demonstrated good use of strategies such as controlling breath groups and self-correction when required. He had difficulty arranging an ENT visit independently as the initial referral source reportedly, keep me on hold for 5 days . When CHEMICALS FERMENTATION OPERATOR tried calling the office, there was again a prolonged hold. We used the end of our session to make an appointment for him at [facility] in June to address hyper-nasal quality of voice. Assessment:Loco benefit from skilled outpatient Speech Therapy targeting articulatory precision and oral-motor exercises. His improvement is accounted for his consistency and motivation to do well. Barriers to success included subtle right hemisphere deficits that impair his ability to self-monitor and reflect on his challenges, also making our prosody goals unattainable. I hope he continues to find the hope that he needs in the community. Plan: Goal # : STG1: Loco will demonstrate back lingual and facial exercises with >80% accuracy after a training period. Status of Goal: Goal Met Goal # : STG2: Loco will read passages of increasing complexity and length with >80% accuracy with x1 cue per Speech error. Status of Goal: Goal Met Goal # : STG3: Loco will complete assigned HEP and return with it at his next session with >80% accuracy. Status of Goal: Goal Met Goal # : STG4: Loco will produce affricates (/ch,/ /dj/) with increased articulatory precision with >80% accuracy at the sentence level. Status of Goal: Goal Met Seen by: Graduate/Clinical Fellow: No Supervisory Statement: f_Reg Query Last Value , MHC.AU.SIGNATUR Speech Language Pathologist: Ray Siu M.A., [facility]CHEMICALS FERMENTATION OPERATOR
== END 2024-05-15 16:01 | disposition home or self-care (01) ==
LOC: HO.SH 13:00
PROVIDERS: Visit Provider Physician Assistant
DX: R47.1 Dysarthria and anarthria (principal)
CPT/HCPCS: 92507

== ENCOUNTER 2024-04-05 11:05 | Day surgery (SDC) | payer OTHER, SELFPAY ==
[2024-04-03 14:24] VITALS: BMI 31.2
--- NOTE | 2024-04-04 09:52 | HO.ANESPROP2 ---
Documented by User: Hien Turner NP 04/04/24 10:07 HPI - Anesthesia Eval Consult details Narrative: 43yo M for Wide Local Excision Mid Back Large Mass CVA 10/2023 r/t uncontrolled htn PMFSH Active Problems Active Problems: All Active Problems Epidermoid cyst of skin of back (Acute) Hypernasality of vowels and voiced consonants (Acute) SCOTTY (renal artery stenosis) (Acute) Obese (Acute) HTN (hypertension) (Acute) Cerebrovascular accident (Acute) Hypertension, uncontrolled (Acute) Past Medical History Medical History Renal artery stenosis Elevated cholesterol CVA (cerebral vascular accident) Hypertension, uncontrolled Surgical History Surgical History History of open reduction and internal fixation (ORIF) procedure Social History Social History Household Members: None Housing: Apartment Do you presently have visiting nurse or other home services: No Patient Tobacco Use Status: Former Tobacco user Quit Date: 5 yrs ago Tobacco use type: Cigarette e-Cigarette/Vaping Use: Never Used Use of substances other than those prescribed or required for medical reasons: No Are you DNR?: No Advance Directives: No Advance Directives Information Provided: Yes service: No Current occupational status: unemployed Cognitive needs: No Hearing needs: No Vision needs: No Meds Allergies Allergy/AdvReac Type Severity Reaction Status Date / Time No Known Allergies Allergy Verified 04/05/24 12:19 Exam Height,Weight and Vital Signs: Height 5 ft 11 in Weight 101.605 kg Pertinent Lab Results Pertinent Lab Results: Laboratory Tests 12/10/23 07:12 WBC 5.0 Hgb 15.3 Hct 44.0 Plt Count 204 Sodium 139 Potassium 4.0 Chloride 104 Carbon Dioxide 27 BUN 15 Creatinine 0.91 Narrative Narrative: ECHO 2022 Conclusions: - Normal left ventricular size and systolic function. There is moderately increased left ventricular wall thickness. The visually estimated ejection fraction is between 65-70%. - E/E prime ratio is between 8 and 15 consistent with indeterminate filling pressures. There is severe septal asymmetric hypertrophy. - Normal right ventricular cavity size and systolic function. - There is mild dilatation of the sinuses of Valsalva measuring 3.80 cm. - There is no evidence of interatrial shunt by agitated saline. EKG 2022 Vent. Rate : 074 BPM Atrial Rate : 074 BPM P-R Int : 198 ms QRS Dur : 112 ms QT Int : 428 ms P-R-T Axes : 026 -05 116 degrees QTc Int : 475 ms Normal sinus rhythm Possible Left atrial enlargement Left ventricular hypertrophy with repolarization abnormality ( R in aVL , [place] product ) Cannot rule out Septal infarct , age undetermined Abnormal ECG No previous ECGs available Assessment and Plan Assessment Anesthesia Assessment: Chart Reviewed Documented by User: Renetta Terrazas MD 04/05/24 15:38 PMFSH Past Medical History Medical History Renal artery stenosis Elevated cholesterol CVA (cerebral vascular accident) Hypertension, uncontrolled Family History Family history of problems with anesthesia: No Surgical History Surgical History History of open reduction and internal fixation (ORIF) procedure History of Problems with Anesthesia: No Social History Social History Household Members: None Housing: Apartment Do you presently have visiting nurse or other home services: No Patient Tobacco Use Status: Former Tobacco user Quit Date: 5 yrs ago Tobacco use type: Cigarette e-Cigarette/Vaping Use: Never Used Use of substances other than those prescribed or required for medical reasons: No Are you DNR?: No Advance Directives: No Advance Directives Information Provided: Yes service: No Current occupational status: unemployed Cognitive needs: No Hearing needs: No Vision needs: No Meds Allergies Allergy/AdvReac Type Severity Reaction Status Date / Time No Known Allergies Allergy Verified 04/05/24 12:19 Exam Airway Mallampati Class: III TM Dist: <=3cm Neck ROM: Limited Heart: rrr Lungs: cta Assessment and Plan Final Anesthetic Review Family History of Problems with Anesthesia: No History of Problems with Anesthesia: No NPO: Yes ASA Class: III Final Preanesthetic Review: No Changes in Pt Med Stat, Meds/Allgs Chart Reviewed, Consent Obtained/Reviewed and Anes Risks/Benef Reviewed Patient Risk: Intermediate Procedure Risk: Low Anesthetic Plan Anesthetic Plan: MAC: Disposition: Standard PACU
--- NOTE | 2024-04-04 15:34 | MHC.SHP ---
Pre-Procedural Eval Section A - 24 Hr Update-Section A only Date of Service: 04/04/24 The patient is an INPATIENT: No Changes since office visit: No Cold of Flu in the past 2 weeks, No New Medical Problems, No Changes in Medication and No Patient answered all questions Section B - Complete if H&P > 30 days Chief Complaint: Epidermal cyst Allergies: Allergies Allergy/AdvReac Type Severity Reaction Status Date / Time No Known Allergies Allergy Verified 02/21/24 13:22 Plan I have reviewed the history and physical and performed a pertinent physical examination on my patient. No changes have occurred unless specified. Time Spent With Patient Time: Total time managing care of this patient today ____ minutes.
--- NOTE | 2024-04-05 08:27 | MHC.SHP ---
Pre-Procedural Eval Section A - 24 Hr Update-Section A only Date of Service: 04/05/24 The patient is an INPATIENT: No Changes since office visit: No Cold of Flu in the past 2 weeks, No New Medical Problems, No Changes in Medication and No Patient answered all questions Section B - Complete if H&P > 30 days Chief Complaint: Epidermal cyst Details of Present Illness: Excision mass of back Allergies: Allergies Allergy/AdvReac Type Severity Reaction Status Date / Time No Known Allergies Allergy Verified 02/21/24 13:22 Plan I have reviewed the history and physical and performed a pertinent physical examination on my patient. No changes have occurred unless specified. Time Spent With Patient Time: Total time managing care of this patient today ____ minutes.
[2024-04-05 12:20] VITALS: BMI 31.0
[2024-04-05 12:27] VITALS: BP 136/87; PULSE 58; RESP 15; TEMP 36.3; O2SAT 95
--- NOTE | 2024-04-05 13:08 | MHC.SHP ---
Pre-Procedural Eval Section A - 24 Hr Update-Section A only Date of Service: 04/05/24 The patient is an INPATIENT: No Changes since office visit: No Cold of Flu in the past 2 weeks, No New Medical Problems, No Changes in Medication and No Patient answered all questions The patient has been examined within 24 hours of the surgical procedure. The History & Physical has been completed within 30 days and I have reviewed it.: Yes Section B - Complete if H&P > 30 days Chief Complaint: Epidermal cyst Allergies: Allergies Allergy/AdvReac Type Severity Reaction Status Date / Time No Known Allergies Allergy Verified 04/05/24 12:19 Review of Systems Sugical H&P ROS: Negative: Constitution, Cardiovascular, Respiratory, Neurological, Psychiatric, Hem-Onc, Allergic/Immunologic, Gastrointestinal, Genitourinary, Musculoskeletal, Integumentary, Endocrine and Eyes/Ears/Nose/Throat Exam Surgical H&P Exam: Normal: HEENT, Normal: Heart, Normal: Lungs, Normal: Extremities, Normal: Abdomen, Normal: Skin and Normal: Neurological Plan Diagnosis/Plan: Unchanged I have reviewed the history and physical and performed a pertinent physical examination on my patient. No changes have occurred unless specified. Time Spent With Patient Time: Total time managing care of this patient today ____ minutes.
--- NOTE | 2024-04-05 17:41 | MHC.SHP ---
Pre-Procedural Eval Section A - 24 Hr Update-Section A only Date of Service: 04/05/24 The patient is an INPATIENT: No Changes since office visit: No Cold of Flu in the past 2 weeks, No New Medical Problems, No Changes in Medication and No Patient answered all questions The patient has been examined within 24 hours of the surgical procedure. The History & Physical has been completed within 30 days and I have reviewed it.: Yes Section B - Complete if H&P > 30 days Chief Complaint: Epidermal cyst Details of Present Illness: Because of a prolonged wait and late start time for anesthesia, I discussed with the patient performed the procedure under local only and he is in agreement. We will do this for him shortly. Allergies: Allergies Allergy/AdvReac Type Severity Reaction Status Date / Time No Known Allergies Allergy Verified 04/05/24 12:19 Plan I have reviewed the history and physical and performed a pertinent physical examination on my patient. No changes have occurred unless specified. Time Spent With Patient Time: Total time managing care of this patient today ____ minutes.
--- NOTE | 2024-04-05 18:18 | P.OP_ITS ---
Operative Note Operative Note Date of Service: 04/05/24 Narrative: Preoperative diagnosis: [] Mid back large sebaceous cys Postop diagnosis: [] The same Procedure [] wide local excision mid back sebaceous cyst Surgeon: [] Alexei Flat Knitter Helper: [] Type of Anesthesia: [] Local Indication for surgery: [] Final specimen measured approximately 5 x 3 cm consistent with a large sebaceous cyst Findings: [] Patient brought to the operating room, placed on operative table supine position, and after an adequate level of local anesthesia (1% lidocaine/0.5% Marcaine) was induced after the patient was placed in the right lateral decubitus position, the mid back was prepped and draped in usual sterile fashion. Using a transverse bi- elliptical incision encompassing the mass in question with final dimensions as described above, this carried down through skin, subcutaneous tissue, and undermined using Bovie. Specimen was sent to pathology. Wound was irrigated, secured hemostasis, and closed using interrupted inverted dermal 3-0 Vicryl sutures followed by Steri-Strips and sterile dressings. Sponge, needle, and instrument counts reported correct. Patient tolerated the procedure well and emerged from anesthesia stable condition. EBL minimal
[2024-04-05 18:19] VITALS: BP 144/78; PULSE 62; RESP 16; TEMP 36.4; O2SAT 97
== END 2024-04-05 18:30 | disposition home or self-care (01) ==
PROVIDERS: PCP Physician Assistant; Visit Provider Surgery
PROC: (CPT 11406; principal; 2024-04-05 13:30)
DX: L72.0 Epidermal cyst (principal); I10 Essential (primary) hypertension; I70.1 Atherosclerosis of renal artery; E78.00 Pure hypercholesterolemia, unspecified; Z98.890 Other specified postprocedural states; Z86.73 Personal history of transient ischemic attack (TIA), and cerebral infarction without residual deficits; Z87.891 Personal history of nicotine dependence; Z56.0 Unemployment, unspecified
CPT/HCPCS: 11406; 88304; J0690

== ENCOUNTER → 2024-04-05 11:05 | Outpatient (BNV) | payer OTHER, SELFPAY | PROVIDERS: PCP Physician Assistant; Visit Provider Surgery | DX: L72.0 Epidermal cyst (principal) | CPT/HCPCS: 11406 ==

== ENCOUNTER 2024-04-12 07:46 | Outpatient (AMB) | payer OTHER, SELFPAY ==
[2024-04-12 07:49] VITALS: BP 144/90; BMI 32.2
--- NOTE | 2024-04-12 07:49 | MHC.PC.OV ---
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 Accompanied by: Self / Same As Patient Allergies No Known Allergies Allergy (Verified 04/12/24 08:00) Medication List - Last Reconciled 04/12/24 by Kenneth Wang PA-C amlodipine 10 mg PO DAILY 90 days aspirin 81 mg PO DAILY 90 days atorvastatin 40 mg PO DAILY 90 days blood pressure monitor As directed blood pressure monitor (Blood Pressure Kit) As directed carvedilol 6.25 mg See Protocol PO BID 90 days hydrocodone-acetaminophen 5-325 mg 1 tab PO Q4-6H PRN losartan-hydrochlorothiazide 100-12.5 mg 1 tab PO DAILY 90 days Tobacco use date assessed: 11/30/23 Dental Screening Dental Screen Date: 02/13/24 HPI Post Surgery F/U HPI Details Patient is a 43-year-old male here today for follow-up visit. Patient's past medical history significant for hypertension. CVA, Recently underwent surgical removal of epidermal cyst on his back. Has been doing well postoperatively, no signs of infection in the surgical area. Will be following up with surgeon next week. Hypertension: Blood pressures at home have been 1 teens to 120 systolic. He did have evaluation by vascular surgeon with concerns for renal artery stenosis though CTA abdomen was normal. Usually in the office blood pressures are slightly elevated. Continues on multiple. Otherwise patient feels well without any vision issues, headaches, chest discomforts palpitations. [facility] Medical History Renal artery stenosis Elevated cholesterol CVA (cerebral vascular accident) Hypertension, uncontrolled Surgical History History of open reduction and internal fixation (ORIF) procedure Family History Father No problems noted. Mother No problems noted. Social History Household Members: None Housing: Apartment Do you presently have visiting nurse or other home services: No Patient Tobacco Use Status: Former Tobacco user Quit Date: 5 yrs ago Tobacco use type: Cigarette e-Cigarette/Vaping Use: Never Used service: No Current occupational status: unemployed Cognitive needs: No Hearing needs: No Vision needs: No Questionnaire Thrive Questionnaire Date Thrive assessed: 11/30/23 ABDIAZIZ-7 AMB Questionnaire ABDIAZIZ-7 Date ABDIAZIZ - 7 assessed: 11/30/23 Source: Developed by Drs. Lefty Mitchell, Kassi Robertson, Maksim Cannon and colleagues, with an educational lalo from [employer]. Review of Systems Const Denies headache(s) Eyes Denies loss of vision ENT Denies vertigo, Denies dizziness, Denies headache(s) and Denies sore throat Card Denies chest pain, Denies leg edema and Denies lightheadedness Resp Denies cough, Denies hemoptysis and Denies wheezing GI Denies abdominal pain, Denies melena, Denies constipation, Denies diarrhea and Denies vomiting Denies dysuria, Denies urinary frequency and Denies urinary urgency Musc Denies arthralgias, Denies joint swelling, Denies numbness and Denies tingling Neuro Denies Abnormal speech present, Denies behavioral changes, Denies vertigo, Denies dizziness, Denies headache(s), Denies loss of vision, Denies memory loss, Denies numbness and Denies tingling Psych Denies anxiety, Denies behavioral changes, Denies depression, Denies memory loss and Denies panic attacks Papo/Lymph Denies easy bleeding and Denies easy bruising Aller/Immun Denies wheezing Physical exam (Primary Care) Vital Signs: Last Vital Signs BP 144/90 H 04/12/24 07:49 BMI result Body Mass Index 32.2 Tobacco/Smoking Status: Tobacco use Status Tobacco use date assessed 11/30/23 04/12/24 07:53 Patient Tobacco Use Status Former Tobacco user 04/12/24 07:53 Tobacco use type Cigarette 04/12/24 07:53 e-Cigarette/Vaping Use Never Used 04/12/24 07:53 Thrive Assessment: Date of Thrive Assessment Date Thrive assessed 11/30/23 04/12/24 07:53 Const General: healthy appearing, no acute distress, alert and awake Nutritional Appearance: well nourished Orientation/consciousness: oriented to person, oriented to place and oriented to time HENMT Ears: TM's normal bilaterally General nose exam: Normal nasal mucous membranes and turbinates present Eyes Conjunctivae: conjunctivae normal Sclerae: sclerae normal Pupils: Equal, round and reactive pupils present Neck Neck: Yes no lymphadenopathy and Yes no JVD Thyroid: Thyroid normal Carotids: no bruits Resp Effort & Inspection: normal respiratory effort and not tachypneic Auscultation: no crackles, no rales, no rhonchi and no wheezes Cardio Rate: regular rate Rhythm: regular rhythm Heart sounds: no murmurs and normal S1 and S2 GI Palpation (GI): Soft to palpation, nontender, no hepatomegaly and no splenomegaly Auscultation: normal bowel sounds Back/Spine/Pelvis Back/spine/pelvis image: 1. WELL-HEALED SURGICAL SCAR, NO NOTABLE SURROUNDING ERYTHEMA OR DRAINAGE. Skin General skin exam: no rashes or lesions noted and dry skin Neuro General: oriented to person, oriented to place and oriented to time Cranial nerves: Yes Equal, round and reactive pupils present Speech: No Abnormal speech present Gait exam (Neuro): Normal gait present Motor exam (neuro): no tremor noted Extrem Right upper extremity: full ROM Left upper extremity: full ROM Right lower extremity: full ROM; no edema Left lower extremity: full ROM; no edema Psych Mental Status: mental status grossly normal Speech and movement: Normal speech and movement present Affect: normal affect Attitude: cooperative Thought process: Normal thought process present Assessment and Plan Assessment & Plan (1) Epidermoid cyst of skin of back: Code(s): L72.0 - Epidermal cyst (2) HTN (hypertension): Code(s): I10 - Essential (primary) hypertension Qualifiers: Hypertension type: primary hypertension Qualified Code(s): I10 - Essential (primary) hypertension Plan: Patient's blood pressure in office elevated today. He brings in his home readings that are 110-120s systolic. He otherwise denies any headache, dizziness, chest pains or syncopal episodes. He did have evaluation by vascular surgeon with concerns for renal artery stenosis though CTA abdomen was normal. Usually in the office blood pressures are slightly elevated. Continues on multiple. Will continue his current blood pressure med regime with goal blood pressure to be below 140/90 Patient Instructions: Goal: Blood pressure to remain below 140/90 Barriers: Adherence to physical activity and healthy eating habits Coding Level of Care Code Est Pt Level 4 (94704) Diagnoses Epidermoid cyst of skin of back L72.0 Primary hypertension I10 Hypertension type: primary hypertension
== END 2024-04-12 09:34 | disposition home or self-care (01) ==
PROVIDERS: PCP Physician Assistant; Visit Provider Physician Assistant
DX: L72.0 Epidermal cyst (principal); I10 Essential (primary) hypertension
CPT/HCPCS: 99214

== ENCOUNTER 2024-04-16 13:10 | Outpatient (AMB) | payer OTHER, SELFPAY ==
--- NOTE | 2024-04-16 13:28 | MHC.OFFVIS ---
Intake Visit Reasons: S/P WLE midback large mass Intake Note: Patient here s/p WLE on mid back. Reports incision healing well. Patient c/o: itch along bandage. SX: 04-05-24. 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 He has no wound issues or complaints. Pathology is benign [facility] Medical History Renal artery stenosis Elevated cholesterol CVA (cerebral vascular accident) Hypertension, uncontrolled Surgical History History of open reduction and internal fixation (ORIF) procedure Family History Father No problems noted. Mother No problems noted. Social History Household Members: None Housing: Apartment Do you presently have visiting nurse or other home services: No Patient Tobacco Use Status: Former Tobacco user Quit Date: 5 yrs ago Tobacco use type: Cigarette e-Cigarette/Vaping Use: Never Used service: No Current occupational status: unemployed Cognitive needs: No Hearing needs: No Vision needs: No Physical Exam Back/Spine/Pelvis Other: Wound is clean dry and intact healing very well Assessment & Plan Assessment & Plan (1) Postop check: Code(s): Z09 - Encounter for follow-up examination after completed treatment for conditions other than malignant neoplasm Category: Surgical Plan Patient has been given local instructions including avoiding strenuous activities for next 2 weeks time and will otherwise follow-up p.r.n.. All questions answered Coding Level of Care Code Global (83406) Diagnoses Postop check Z09
== END 2024-04-16 13:37 | disposition home or self-care (01) ==
PROVIDERS: PCP Physician Assistant; Visit Provider Surgery
DX: Z09 Encounter for follow-up examination after completed treatment for conditions other than malignant neoplasm (principal)
CPT/HCPCS: 99024

== ENCOUNTER → 2024-04-16 13:10 | Outpatient (BNVA) | payer OTHER, SELFPAY | PROVIDERS: PCP Physician Assistant; Visit Provider Surgery | DX: Z09 Encounter for follow-up examination after completed treatment for conditions other than malignant neoplasm (principal); Z87.2 Personal history of diseases of the skin and subcutaneous tissue | CPT/HCPCS: 99212 ==

== ENCOUNTER 2024-06-01 06:02 | Outpatient (REF) | payer OTHER, SELFPAY ==
[2024-06-01 07:18] LABS: Alanine Aminotransferase 88 U/L (0-40); Albumin Level 4.5 g/dL (3.5-5.0); Alkaline Phosphatase 80 U/L (39-117); Anion Gap 13 (12-20); Aspartate Amino Transferase 34 U/L (5-37); Bilirubin Total 0.7 mg/dL (0.0-1.0); Blood Urea Nitrogen 14 mg/dL (9-16); Calcium 10.2 mg/dL (8.4-10.2); Carbon Dioxide 26 mmol/L (22-29); Chloride 105 mmol/L (96-108); Cholesterol 153 mg/dL (<200); Estimated Glomerular Filt Rate > 60; Glucose Fasting 97 mg/dL (60-99); HDL Cholesterol 67 mg/dL (>40); LDL Cholesterol Calculated 75 mg/dL (<100); Potassium 3.8 mmol/L (3.3-5.1); Sodium 140 mmol/L (135-145); Total Protein 7.9 g/dL (6.5-8.0); Triglycerides 55 mg/dL (<150)
[2024-06-01 07:22] LABS: Hematocrit 43.6 % (42.0-52.0); Hemoglobin 15.2 g/dl (14.0-18.0); Mean Corpuscular HGB Conc 34.9 g/dl (31.0-36.0); Mean Corpuscular Hemoglobin 32.6 pg (27.0-33.0); Mean Corpuscular Volume 93.6 fL (80.0-98.0); Mean Platelet Volume 9.5 fL (9.4-12.4); Platelet Count 195 X10*3/uL (160-400); Red Blood Count 4.66 X10*6/uL (4.60-5.80); Red Cell Distribution Width 12.6 % (11.0-16.0); White Blood Count 5.8 X10*3/uL (4.8-10.8)
== END 2024-06-01 06:03 | disposition home or self-care (01) ==
LOC: HO.LAB 06:02
PROVIDERS: PCP Physician Assistant; Visit Provider Physician Assistant
DX: I10 Essential (primary) hypertension (principal); Z86.73 Personal history of transient ischemic attack (TIA), and cerebral infarction without residual deficits
CPT/HCPCS: 36415; 80053; 80061; 85027

== ENCOUNTER 2024-06-14 14:03 | Outpatient (AMB) | payer OTHER, SELFPAY ==
[2024-06-14 14:32] VITALS: BP 142/94; PULSE 62; O2SAT 98; BMI 31.8
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
== END 2024-06-14 15:14 | disposition home or self-care (01) ==
PROVIDERS: PCP Physician Assistant; Visit Provider Physician Assistant
DX: Z00.00 Encounter for general adult medical examination without abnormal findings (principal); I10 Essential (primary) hypertension; I63.9 Cerebral infarction, unspecified; M25.561 Pain in right knee; G89.29 Other chronic pain; Z23 Encounter for immunization
CPT/HCPCS: 90471; 90715; 99396

== ENCOUNTER 2024-07-19 09:34 | Outpatient (AMB) | payer OTHER, SELFPAY ==
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
[2024-07-19 09:53] VITALS: BMI 31.8
== END 2024-07-19 10:55 | disposition home or self-care (01) ==
PROVIDERS: PCP Physician Assistant; Visit Provider Orthopaedic Surgery
DX: M25.561 Pain in right knee (principal); G89.29 Other chronic pain
CPT/HCPCS: 99203

== ENCOUNTER 2024-07-19 09:34 | Outpatient (REF) | payer OTHER, SELFPAY ==
--- NOTE | ~2024-07-19 | XR_ITS ---
EXAMINATION: XR KNEE, RIGHT CLINICAL INFORMATION: Right knee pain. COMPARISON: None available. TECHNIQUE: Four views of the right knee. FINDINGS: No fracture or joint effusion. Alignment is anatomic. Joint spaces are maintained. No abnormal soft tissue calcification. XR/XR knee RT 3V IMPRESSION: Normal right knee radiographs. Electronically signed by: Aaron Carter MD 08/12/2024 10:38 AM EDT
== END 2024-07-19 09:35 | disposition home or self-care (01) ==
LOC: HO.HOSX 09:34
PROVIDERS: PCP Physician Assistant; Visit Provider Orthopaedic Surgery
DX: M25.561 Pain in right knee (principal); G89.29 Other chronic pain
CPT/HCPCS: 73562; 99202

== ENCOUNTER 2024-10-17 13:27 | Outpatient (REF) | payer OTHER, SELFPAY ==
--- NOTE | ~2024-10-17 | MR_ITS ---
EXAMINATION: MR KNEE WITHOUT CONTRAST, RIGHT CLINICAL INFORMATION: Knee pain. Patient reports pain, knee gives out. COMPARISON: X-ray 07/19/2024 TECHNIQUE: MRI of the knee without contrast was performed using routine sequences on a high-field scanner. FINDINGS: MENISCI: Medial Meniscus: Intact Lateral Meniscus: Intact LIGAMENTS: Cruciate: Intact Collateral: Intact EXTENSOR MECHANISM: Intact ARTICULAR CARTILAGE/BONE: Patellofemoral Compartment: No significant chondral loss. Medial Compartment: No significant chondral loss. Lateral Compartment: No significant chondral loss. No fracture. No aggressive marrow replacing lesion.. JOINT FLUID AND BURSAE: Small joint fluid... Trace Lott's cyst. Popliteus muscle and tendon are intact. Pes anserine tendons unremarkable. Semimembranosus tendon appears unremarkable. Subcutaneous edema anteriorly. MR/MR knee RT wo con IMPRESSION: 1. Menisci appear intact without evidence of discrete tear. 2. Cruciate and collateral ligaments appear intact. 3. Small joint fluid. Trace Lott's cyst. 4. Subcutaneous edema in the anterior knee. Electronically signed by: Darwin Zhu MD 10/25/2024 10:15 AM [facility]
== END 2024-10-17 13:28 | disposition home or self-care (01) ==
LOC: HO.MRI 13:27
PROVIDERS: PCP Physician Assistant; Visit Provider Orthopaedic Surgery
DX: M25.561 Pain in right knee (principal); G89.29 Other chronic pain
CPT/HCPCS: 73721

== ENCOUNTER 2024-11-27 12:41 | Outpatient (AMB) | payer OTHER, SELFPAY ==
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
[2024-11-27 12:44] VITALS: BMI 31.8
== END 2024-11-27 13:05 | disposition home or self-care (01) ==
PROVIDERS: PCP Physician Assistant; Visit Provider Orthopaedic Surgery
DX: S83.281A Other tear of lateral meniscus, current injury, right knee, initial encounter (principal)
CPT/HCPCS: 99214; G2211

== ENCOUNTER → 2024-11-27 12:41 | Outpatient (BNVA) | payer OTHER, SELFPAY | PROVIDERS: PCP Physician Assistant; Visit Provider Orthopaedic Surgery | DX: S83.281A Other tear of lateral meniscus, current injury, right knee, initial encounter (principal) | CPT/HCPCS: 99212 ==

== ENCOUNTER → 2024-12-28 06:42 | Outpatient (BNV) | payer OTHER, SELFPAY | PROVIDERS: PCP Physician Assistant; Visit Provider Orthopaedic Surgery | DX: S83.281A Other tear of lateral meniscus, current injury, right knee, initial encounter (principal) | CPT/HCPCS: 29881 ==

== ENCOUNTER 2025-01-10 12:33 | Outpatient (AMB) | payer OTHER, SELFPAY ==
--- OUTSIDE RECORDS SUMMARY | 2025-01-10 12:39 | XMS_ITS | Referral Summary ---
Author Organization [facility] Address [address] [place] [address] Care Team Providers Care Extrusion Die Repairer Name Role Phone Kenneth Wang Primary Care Provider [phone] Allergies No known active allergies Medications amLODIPine (NORVASC) 10 mg tablet Take 10 mg by mouth once a day. Active losartan (COZAAR) 25 mg tablet Take 25 mg by mouth once a day. Active Social History Tobacco Use Types Packs/Day Years Used Date Smoking Tobacco: Never Assessed Sex and Gender Information Value Date Recorded Sex Assigned at Male 07/26/2024 12:08 PM EDT Legal Sex Male 1:39 PM EDT Gender Identity Not on file Sexual Orientation Not on file Last Filed Vital Signs Vital Sign Reading Time Taken Comments Blood Pressure - - Pulse - - Temperature - - Respiratory Rate - - Oxygen Saturation - - Inhaled Oxygen Concentration - - Weight 100.2 kg (220 lb 12. 8 oz) 07/26/2024 1:13 PM EDT per patient Height 170 cm (5' 6.93 ) 07/26/2024 1:1 3 PM EDT per patient Body Mass Index 34.66 07/26/2024 1:13 PM EDT Plan of Treatment Not on file Insurance [facility] MEDICAID Care Teams Extrusion Die Repairer Relationship Specialty Start Date End Date Kenneth Wang PA [address] [place] [id number] PCP - General 03/22/24
--- OUTSIDE RECORDS SUMMARY | 2025-01-10 12:39 | XMS_ITS | Clinical Summary ---
Author Organization [facility] Address [address] [place] [address] Care Team Providers Care Master Lay Out Specialist Name Role Phone Kenneth Wang Primary Care Provider [phone] Allergies No known active allergies Medications amLODIPine [...] 07/26/2024 1:13 PM EDT Plan of Treatment Health Maintenance Due Date Last Done Comments HIV Screening 1980 Varicella Vaccines (1 of 2 - 13+ 2-dose series) 1993 Hepatitis B Vaccines (1 of 3 - 19+ 3-dose series) 1999 COVID-19 Vaccine (2023-2 5 season) 2024 10/19/2021, 09/18/2021 Influenza Vaccine (#1) 2024 Alcohol/Substance Use Screening 11/28/2024 DTaP,Tdap,and Td Vaccines (2 - Td or Tdap) 06/14/2034 06/14/2024 RSV Vaccine (60+ years old and patients) (1 - 1-dose 75+ series) 2055 Pneumococcal Vaccine: Pediatric (0-5 Years) and At-Risk Patients (6-50 Years) Aged Out No longer eligible based on patient's age to complete this topic Insurance [employer] Care Teams Master Lay Out Specialist Relationship Specialty Start Date End Date Kenneth Wang PA [address] [place] [id number] PCP - General 03/22/24
--- NOTE | 2025-01-10 12:40 | MHC.OFFVIS ---
Intake Visit Reasons: PO RT knee 12/28/24 Intake Note: Loco is a 44 year old male who presents today for a post op appointment s/p right knee 12/28/24 Patient reports he is pain free however he feels he has a stiffness in his knee. Allergies No Known Allergies Allergy (Verified 01/10/25 12:44) Medication List - Last Reconciled 01/10/25 by Aki Nesbitt PA-C amlodipine 10 mg PO DAILY 90 days aspirin 81 mg PO DAILY 90 days atorvastatin 40 mg PO DAILY 90 days blood pressure monitor As directed blood pressure monitor (Blood Pressure Kit) As directed carvedilol 6.25 mg See Protocol PO BID 90 days losartan-hydrochlorothiazide 100-12.5 mg 1 tab PO DAILY 90 days oxycodone 5 mg PO Q6H PRN HPI HPI PO RT knee 12/28/24 DR: Details: 44-year-old gentleman presents to the office today status post right knee arthroscopy 12/28/[address] Arana. He states he has been doing well with activities. He is working on his range of motion and related to return to the gym. [facility] Medical History Renal artery stenosis Elevated cholesterol CVA (cerebral vascular accident) Hypertension, uncontrolled Surgical History Previous back surgery History of open reduction and internal fixation (ORIF) procedure Family History Father No problems noted. Mother No problems noted. Social History Household Members: None Housing: Apartment Are you a primary ocular care aide to a significant other at home: No Do you presently have visiting nurse or other home services: No Alcohol intake: former Patient Tobacco Use Status: Former Tobacco user Tobacco use type: Cigarette Years Smoked: 8 e-Cigarette/Vaping Use: Never Used Substance Use Type: Marijuana service: No Current occupational status: unemployed Cognitive needs: No Hearing needs: No Vision needs: No Review of Systems Const All systems reviewed & are unremarkable except as noted in HPI and below Physical Exam Extrem Other: Right knee incision clean dry and intact. No erythema no effusion. Range of motion 0-100. Calves supple nontender neurovascularly intact. Results Reviewed Results Reviewed: Brief Operative Note Date of Service: 12/28/24 Pre-op diagnosis: Right knee lateral meniscus tear, right knee degenerative joint disease Post-op diagnosis: same Procedure: Right knee diagnostic arthroscopy with right knee arthroscopic partial lateral meniscectomy right knee arthroscopic chondroplasty of the undersurface of the patella Implants: none Surgeon: Ari Arana MD Assessment & Plan Assessment & Plan (1) Tear of lateral meniscus of right knee: Code(s): S83.281A - Other tear of lateral meniscus, current injury, right knee, initial encounter Category: Medical Plan: Sutures removed today Steri-Strips applied. I did recommend a course of physical therapy which he declined at this time. He will continue to work on his motion and strength and increase activities as tolerated. I did encourage him to avoid deep twisting bending and pivoting motions for the next 4-6 weeks. He will return in [address] Arana sooner if needed. Coding Level of Care Code Global (52850) Diagnoses Tear of lateral meniscus of right knee S83.281A
== END 2025-01-10 12:53 | disposition home or self-care (01) ==
PROVIDERS: PCP Physician Assistant; Visit Provider Physician Assistant
DX: S83.281A Other tear of lateral meniscus, current injury, right knee, initial encounter (principal)
CPT/HCPCS: 99024

== ENCOUNTER → 2025-01-10 12:33 | Outpatient (BNVA) | payer OTHER, SELFPAY | PROVIDERS: PCP Physician Assistant; Visit Provider Physician Assistant | DX: S83.281D Other tear of lateral meniscus, current injury, right knee, subsequent encounter (principal) | CPT/HCPCS: 99212 ==

== ENCOUNTER 2025-02-06 09:52 | Outpatient (AMB) | payer OTHER, SELFPAY ==
--- NOTE | 2025-02-06 10:04 | A.OFFVIS_ITS ---
Vital Signs 02/06/25 10:10 Height 5 ft 11 in Weight 252 lb BMI 35.1 Intake Visit Reasons: PO- RT knee 12/28/24 DR sarabia/evelyn Intake Note: Loco is a 44 year old male who presents today post-operatively after undergoing right knee arthroscopy on 12/28/24. Patient reports he is doing very well, stiffness has subsided. He continues with his exercise program. He denies any fevers or chills. Allergies No Known Allergies Allergy (Verified 02/06/25 10:06) Medication List - Last Reconciled 02/06/25 by Ari Arana MD amlodipine 10 mg PO DAILY 90 days aspirin 81 mg PO DAILY 90 days atorvastatin 40 mg PO DAILY 90 days blood pressure monitor As directed blood pressure monitor (Blood Pressure Kit) As directed carvedilol 6.25 mg See Protocol PO BID 90 days losartan-hydrochlorothiazide 100-12.5 mg 1 tab PO DAILY 90 days [facility] Medical History Renal artery stenosis Elevated cholesterol CVA (cerebral vascular accident) Hypertension, uncontrolled Surgical History Previous back surgery History of open reduction and internal fixation (ORIF) procedure Family History Father No problems noted. Mother No problems noted. Social History Household Members: None Housing: Apartment Are you a primary care transitions manager to a significant other at home: No Do you presently have visiting nurse or other home services: No Alcohol intake: former Patient Tobacco Use Status: Former Tobacco user Tobacco use type: Cigarette Years Smoked: 8 e-Cigarette/Vaping Use: Never Used Substance Use Type: Marijuana service: No Current occupational status: unemployed Cognitive needs: No Hearing needs: No Vision needs: No Physical Exam Vital Signs: BMI result Body Mass Index 35.1 Extrem Other: Right knee examination shows that the surgical incisions are well healed, no erythema, minimal crepitus with range of motion, minimal discomfort with range of motion Assessment & Plan Assessment & Plan (1) Right knee pain: Code(s): M25.561 - Pain in right knee Category: Medical Qualifiers: Chronicity: chronic Qualified Code(s): M25.561 - Pain in right knee; G89.29 - Other chronic pain Plan Mr. Guadalupe is doing very well after undergoing right knee arthroscopic surgery on 12/28/2024. He will continue with his home exercise program. Will contact me prior to his follow-up appointment in 3 months should any questions or concerns arise. Feel free to call me at any time should questions regarding his orthopedic management arise. Coding Level of Care Code Global (80674) Diagnoses Chronic pain of right knee M25.561; G89.29 Chronicity: chronic
[2025-02-06 10:10] VITALS: BMI 35.1
--- OUTSIDE RECORDS SUMMARY | 2025-02-06 11:01 | XMS_ITS | Referral Summary ---
Author Organization [facility] Address [address] [place] [address] Care Team Providers Care Motor Vehicle Compliance Analyst Name Role Phone Kenneth Wang Primary Care Provider [phone] Allergies No known active allergies Medications amLODIPine [...] Plan of Treatment Not on file Insurance [facility] MEDICAID Care Teams Motor Vehicle Compliance Analyst Relationship Specialty Start Date End Date Kenneth Wang PA [address] [place] [phone] PCP - General 03/22/24
--- OUTSIDE RECORDS SUMMARY | 2025-02-06 11:01 | XMS_ITS | Clinical Summary ---
Author Organization [facility] Address [address] [place] [address] Care Team Providers Care Materials Assistant Name Role Phone eKnneth Wang Primary Care Provider [phone] Allergies No known active allergies Medications amLODIPine [...] this topic Insurance [employer] MEDICA[employer] Care Teams Materials Assistant Relationship Specialty Start Date End Date Kenneth Wang PA [address] [place] [address] [phone] PCP - General 03/22/24
== END 2025-02-06 10:26 | disposition home or self-care (01) ==
PROVIDERS: PCP Physician Assistant; Visit Provider Orthopaedic Surgery
DX: M25.561 Pain in right knee (principal); G89.29 Other chronic pain
CPT/HCPCS: 99024

== ENCOUNTER → 2025-02-06 09:52 | Outpatient (BNVA) | payer OTHER, SELFPAY | PROVIDERS: PCP Physician Assistant; Visit Provider Physician Assistant | DX: M25.561 Pain in right knee (principal); G89.29 Other chronic pain | CPT/HCPCS: 99212 ==

== ENCOUNTER 2025-02-14 09:31 | Outpatient (AMB) | payer OTHER, SELFPAY ==
[2025-02-14 09:57] VITALS: BP 150/92; PULSE 74; TEMP 36.1; O2SAT 96; BMI 35.3
--- NOTE | 2025-02-14 09:57 | MHC.PC.OV ---
Vital Signs 02/14/25 09:57 Height 5 ft 11 in Weight 253 lb BMI 35.3 BP 150/92 H Blood Pressure Location Lt brachial Position Sitting Pulse 74 Pulse Source Pulse Oximeter Temp 96.9 F Temp Source Temporal Artery Scan Pulse Oximetry (%) 96 Oxygen Delivery Method Room Air Intake Visit Reasons: f/u HTN/ CVA brittany 12/17 Commercial Mortgage Broker Required: No Accompanied by: Self / Same As Patient Allergies No Known Allergies Allergy (Verified 02/14/25 10:29) Medication List - Last Reconciled 02/14/25 by Kenneth Wang PA-C amlodipine 10 mg PO DAILY 90 days aspirin 81 mg PO DAILY 90 days atorvastatin 40 mg PO DAILY 90 days blood pressure monitor As directed blood pressure monitor (Blood Pressure Kit) As directed carvedilol 6.25 mg See Protocol PO BID 90 days losartan-hydrochlorothiazide 100-12.5 mg 1 tab PO DAILY 90 days Tobacco use date assessed: 02/14/25 Dental Screening Dental Screen Date: 02/14/25 Did you have a dental visit in the last 12 months?: No Did you have a dental problem in the last 6 months where you did not have access to dental care?: Yes Was dental information given to patient?: Yes HPI f/u HTN/ CVA brittany 12/17 HPI Details Patient is a 44-year-old male here today for follow-up visit. . Patient's past medical history significant for hypertension. CVA, REcently underwent arthroscopic knee surgery . He is doing better and now is looking to go back to the gym. Hypertension: Blood pressure today in office slightly elevated. Blood pressures at home have been 1 teens to 120 systolic. . He continues to stay consistent with the use of his blood pressure medication. Has gained significant amount of weight over the last year due to dietary indiscretion and sedentary lifestyle. Otherwise patient feels well without any vision issues, headaches, chest discomforts palpitations. .. CVA: Had cerebrovascular accident in 10/2023- has made a near full recovery though still has speech issues. He now continues on multiple blood pressure medications and indefinite aspirin therapy. Has done speech therapy here in [place]. .. Class 2 obesity: As above patient has gained weight since last office visit. Has been bit inactive due to his knee issue. He plans on getting more physically active to reduce his weight. .. History of alcohol use disorder: Liver enzymes improved though slightly elevated AST . He does admit to having a few beers every now and then. [facility] Medical History Renal artery stenosis Elevated cholesterol CVA (cerebral vascular accident) Hypertension, uncontrolled Surgical History Previous back surgery History of open reduction and internal fixation (ORIF) procedure Family History Father No problems noted. Mother No problems noted. Social History Household Members: None Housing: Apartment Are you a primary primary care pediatrician to a significant other at home: No Do you presently have visiting nurse or other home services: No Alcohol intake: former Patient Tobacco Use Status: Former Tobacco user Tobacco use type: Cigarette Years Smoked: 8 e-Cigarette/Vaping Use: Never Used Substance Use Type: Marijuana service: No Current occupational status: unemployed Cognitive needs: No Hearing needs: No Vision needs: No Questionnaire PHQ-9 Over the last 2 weeks, how often have you been bothered by any of the following problems? 1. Little interest or pleasure in doing things: not at all 2. Feeling down, depressed, or hopeless: not at all 3. Trouble falling or staying asleep, or sleeping too much: not at all 4. Feeling tired or having little energy: not at all 5. Poor appetite or overeating: not at all 6. Feeling bad about yourself - or that you are a failure or have let yourself or your family down: not at all 7. Trouble concentrating on things, such as reading the newspaper or watching television: not at all 8. Moving or speaking so slowly that other people could have noticed. Or the opposite - being so fidgety or restless that you have been moving around a lot more than usual: not at all 9. Thoughts that you would be better off or of hurting yourself in some way: not at all Total score: 0 Depression Screening Interpretation: Negative Depression Screening Done: Yes 37163 - PHQ-9 Billing: Yes Source: Developed by Drs. Lefty Mitchell, Kassi Robertson, Maksim Cannon and colleagues, with an educational lalo from [employer]. Thrive Questionnaire Date Thrive assessed: 02/14/25 I am a: Patient What is your living situation today?: I have a steady place to live Within the past 12 months, did the food you bought not last and you didn't have the money to get more?: Never true Within the past 12 months, did you worry whether your food would run out before you got money to buy more?: Never true Do you have trouble paying for medicines?: No Do you have trouble getting transportation to medical appointments?: No Do you have trouble paying your heating and electricity bill?: No Do you have trouble taking care of your child, family member or friend?: No Do you have trouble with day-to-day activities such as bathing, preparing meals, shopping, managing finances, etc.?: No Are you currently unemployed and looking for a job?: No Are you interested in more education?: No Please select the resources that you would like help with: None Currently or been in a relationship where the following occur: No concerns reported THRIVE Score: 0 AUDIT C Alcohol Use Questionnaire (AUDIT-C) 1. How often do you have a drink containing alcohol?: Monthly or less 2. How many drinks containing alcohol do you have on a typical day when you are drinking?: 3 or 4 3. How often do you have six or more drinks on one occasion?: Never Total Score: 2 ABDIAZIZ-7 AMB Questionnaire ABDIAZIZ-7 Date ABDIAZIZ - 7 assessed: 02/14/25 Feeling nervous, anxious, or on edge: 0 = Not at all Not being able to stop or control worryin = Not at all Worrying too much about different things: 0 = Not at all Trouble relaxin = Not at all Being so restless that it is hard to sit still: 0 = Not at all Becoming easily annoyed or irritable: 0 = Not at all Feeling afraid as if something awful might happen: 0 = Not at all Total ABDIAZIZ-7 score (0-4 normal; 5-9 mild; 10-14 moderate; 15-21 severe): 0 Source: Developed by Kassi Deleon, Maksim Cannon and colleagues, with an educational lalo from [employer]. ABDIAZIZ-7 Assessment Billing ABDIAZIZ-7 Assessment Tool: ABDIAZIZ-7 Assessment 22325 Review of Systems Const Denies headache(s) Eyes Denies loss of vision ENT Denies vertigo, Denies dizziness, Denies headache(s) and Denies sore throat Card Denies chest pain, Denies leg edema and Denies lightheadedness Resp Denies cough, Denies hemoptysis and Denies wheezing GI Denies abdominal pain, Denies melena, Denies constipation, Denies diarrhea and Denies vomiting Denies dysuria, Denies urinary frequency and Denies urinary urgency Musc Denies arthralgias, Denies joint swelling, Denies numbness and Denies tingling Neuro Denies Abnormal speech present, Denies behavioral changes, Denies vertigo, Denies dizziness, Denies headache(s), Denies loss of vision, Denies memory loss, Denies numbness and Denies tingling Psych Denies anxiety, Denies behavioral changes, Denies depression, Denies memory loss and Denies panic attacks Papo/Lymph Denies easy bleeding and Denies easy bruising Aller/Immun Denies wheezing Physical exam (Primary Care) Vital Signs: Last Vital Signs Temp 96.9 F 02/14/25 09:57 Pulse 74 02/14/25 09:57 BP 150/92 H 02/14/25 09:57 Pulse Ox 96 02/14/25 09:57 Oxygen Delivery Method Room Air 02/14/25 09:57 BMI result Body Mass Index 35.3 BMI Assessment/Plan discussion: High BMI High, discussed plan: lifestyle, weight reduction, dietary and physical activity Tobacco/Smoking Status: Tobacco use Status Tobacco use date assessed 02/14/25 02/14/25 10:02 Patient Tobacco Use Status Former Tobacco user 02/14/25 10:02 Tobacco use type Cigarette 02/14/25 10:02 e-Cigarette/Vaping Use Never Used 02/14/25 10:02 PHQ-9: PHQ-9 Score PHQ-9: Total score 0 02/14/25 10:02 Depression Screening Interpretation: Negative Thrive Assessment: Date of Thrive Assessment Date Thrive assessed 02/14/25 02/14/25 10:02 Currently or been in a relationship where the following occur: No concerns reported Const Other: Obese Speech affected General: healthy appearing, no acute distress, alert and awake Nutritional Appearance: well nourished Orientation/consciousness: oriented to person, oriented to place and oriented to time HENMT Ears: TM's normal bilaterally General nose exam: Normal nasal mucous membranes and turbinates present Eyes Conjunctivae: conjunctivae normal Sclerae: sclerae normal Pupils: Equal, round and reactive pupils present Neck Neck: Yes no lymphadenopathy and Yes no JVD Thyroid: Thyroid normal Carotids: no bruits Resp Effort & Inspection: normal respiratory effort and not tachypneic Auscultation: no crackles, no rales, no rhonchi and no wheezes Cardio Rate: regular rate Rhythm: regular rhythm Heart sounds: no murmurs and normal S1 and S2 GI Palpation (GI): Soft to palpation, nontender, no hepatomegaly and no splenomegaly Auscultation: normal bowel sounds Skin General skin exam: no rashes or lesions noted and dry skin Neuro General: oriented to person, oriented to place and oriented to time Cranial nerves: Yes Equal, round and reactive pupils present Speech: No Abnormal speech present Gait exam (Neuro): Normal gait present Motor exam (neuro): no tremor noted Extrem Right upper extremity: full ROM Left upper extremity: full ROM Right lower extremity: full ROM; no edema Left lower extremity: full ROM; no edema Psych Mental Status: mental status grossly normal Speech and movement: Normal speech and movement present Affect: normal affect Attitude: cooperative Thought process: Normal thought process present Coding Level of Care Code Est Pt Level 4 (37959) Diagnoses Cerebrovascular accident I63.9 CVA mechanism: unspecified Primary hypertension I10 Hypertension type: primary hypertension Class 2 obesity E66.812 Intrinsic eczema L20.84 Eczema type: intrinsic Additional Codes ABDIAZIZ-7 Assessment Billing - ABDIAZIZ-7 Assessment Tool: ABDIAZIZ-7 Assessment 93232 ([id number]) PHQ-9 - 79079 - PHQ-9 Billing: Yes ([id number]) Assessment & Plan Assessment & Plan (1) Cerebrovascular accident: Code(s): I63.9 - Cerebral infarction, unspecified Category: Medical Qualifiers: CVA mechanism: unspecified Qualified Code(s): I63.9 - Cerebral infarction, unspecified Plan: Patient has suffered a stroke in 2023 and has dysarthria as a long-lasting effect. Has done feet speech therapy. Continue to risk modify trying to reduce blood pressure, cholesterol and continue on aspirin indefinitely. (2) HTN (hypertension): Code(s): I10 - Essential (primary) hypertension Category: Medical Qualifiers: Hypertension type: primary hypertension Qualified Code(s): I10 - Essential (primary) hypertension Plan: Patient's blood pressure elevated today in office. Has gained 30 lb over the last year. Has been physically inactive due to his knee issue though recently got the go ahead to go back to the gym. He is consistent with using his with a hypertensive medication. Advised to continue monitoring his blood pressure and work on weight reduction and low-sodium diet. Will blood pressure is to be below 140/90 (3) Class 2 obesity: Code(s): E66.812 - Obesity, class 2 Category: Medical Plan: Patient does understand his BMI is over 35 and will work on being more physically active and adapting to better eating habits to reduce his weight (4) Eczema: Code(s): L30.9 - Dermatitis, unspecified Category: Medical Qualifiers: Eczema type: intrinsic Qualified Code(s): L20.84 - Intrinsic (allergic) eczema Plan: Noted itchy dry appearance skin lesions over both legs and dorsal aspects of his hands. Appearance like eczema.. Will supply patient with triamcinolone cream to use on the area. Medications: New triamcinolone acetonide 0.1% 1 appl topical DAILY 30 days 80 grams 1RF L30.9 - Dermatitis, unspecified
== END 2025-02-14 10:42 | disposition home or self-care (01) ==
LOC: HO.HMCH 09:31
PROVIDERS: PCP Physician Assistant; Visit Provider Physician Assistant
DX: I10 Essential (primary) hypertension (principal); I25.2 Old myocardial infarction; E66.812 Obesity, class 2; Z68.35 Body mass index [BMI] 35.0-35.9, adult; L20.84 Intrinsic (allergic) eczema

== ENCOUNTER → 2025-02-14 09:31 | Outpatient (BNVA) | payer OTHER, SELFPAY | PROVIDERS: PCP Physician Assistant; Visit Provider Physician Assistant | DX: I63.9 Cerebral infarction, unspecified (principal); I10 Essential (primary) hypertension; E66.812 Obesity, class 2; L20.84 Intrinsic (allergic) eczema | CPT/HCPCS: 96127; 99212 ==

== ENCOUNTER 2025-06-11 09:28 | Outpatient (AMB) | payer OTHER, SELFPAY ==
[2025-06-11 09:31] VITALS: BMI 35.3
--- NOTE | 2025-06-11 09:31 | A.OFFVIS_ITS ---
Vital Signs 06/11/25 09:31 Height 5 ft 11 in Weight 253 lb BMI 35.3 Intake Visit Reasons: OV- RT knee 12/28/24 DR sarabia/evelyn Intake Note: Loco is a 44 year old male who presents today post-operatively after undergoing right knee arthroscopy on 12/28/24. Patient reports he is doing great, has noticed improvement since his last visit. He continues with his home exercise program. He does not take any medicines for his discomfort. Allergies No Known Allergies Allergy (Verified 06/11/25 09:31) Medication List - Last Reconciled 06/11/25 by Ari Arana MD amlodipine 10 mg PO DAILY 90 days aspirin 81 mg PO DAILY 90 days atorvastatin 40 mg PO DAILY 90 days blood pressure monitor As directed blood pressure monitor (Blood Pressure Kit) As directed carvedilol 6.25 mg See Protocol PO BID 90 days losartan-hydrochlorothiazide 100-12.5 mg 1 tab PO DAILY 90 days triamcinolone acetonide 0.1% 1 appl topical DAILY 30 days [facility] Medical History Renal artery stenosis Elevated cholesterol CVA (cerebral vascular accident) Hypertension, uncontrolled Surgical History Previous back surgery History of open reduction and internal fixation (ORIF) procedure Family History Father No problems noted. Mother No problems noted. Social History Household Members: None Housing: Apartment Are you a primary direct care specialist to a significant other at home: No Do you presently have visiting nurse or other home services: No Alcohol intake: former Patient Tobacco Use Status: Former Tobacco user Tobacco use type: Cigarette Years Smoked: 8 e-Cigarette/Vaping Use: Never Used Substance Use Type: Marijuana service: No Current occupational status: unemployed Cognitive needs: No Hearing needs: No Vision needs: No Physical Exam Vital Signs: BMI result Body Mass Index 35.3 Const Other: Well-nourished well-developed very friendly male awake alert and oriented x3 in no acute distress Extrem Other: Bilateral lower extremity examination shows good capillary refill, no skin lesions noted, normal sensation light touch Right knee examination shows a minimal effusion, the surgical incisions are well healed, no erythema, minimal crepitus with range of motion, no instability, no discomfort with range of motion Assessment & Plan Assessment & Plan (1) Right knee pain: Code(s): M25.561 - Pain in right knee Category: Medical Qualifiers: Chronicity: chronic Qualified Code(s): M25.561 - Pain in right knee; G89.29 - Other chronic pain Plan Mr. Guadalupe continues to do very well after undergoing right knee arthroscopic surgery on 12/28/2024. He will continue with his home exercise program. He will follow up on an as-needed basis should his symptoms worsen in any way. Feel free to call me at any time should questions regarding his orthopedic management arise. I spent 20 minutes in reviewing the patient's records and imaging studies, seeing the patient and documenting in the medical record. Coding Level of Care Code Est Pt Level 3 (17129) Complex EM visit Add On G2211 Diagnoses Chronic pain of right knee M25.561; G89.29 Chronicity: chronic
--- OUTSIDE RECORDS SUMMARY | 2025-06-11 09:58 | XMS_ITS | Referral Summary ---
Author Organization [facility] Address [address] [place] [address] Care Team Providers Care Deputy Clerk Name Role Phone Kenneth Wang Primary Care Provider [phone] Allergies No known active allergies Medications amLODIPine [...] Plan of Treatment Not on file Insurance [facility] MEDICAID Care Teams Deputy Clerk Relationship Specialty Start Date End Date Kenneth Wang PA [address] [place] [phone] PCP - General 03/22/24
== END 2025-06-11 09:50 | disposition home or self-care (01) ==
LOC: HO.HOS 09:28
PROVIDERS: PCP Physician Assistant; Visit Provider Orthopaedic Surgery
DX: M25.561 Pain in right knee (principal); G89.29 Other chronic pain
CPT/HCPCS: 99213; G2211

== ENCOUNTER → 2025-06-11 09:28 | Outpatient (BNVA) | payer OTHER, SELFPAY | PROVIDERS: PCP Physician Assistant; Visit Provider Orthopaedic Surgery | DX: M25.561 Pain in right knee (principal); G89.29 Other chronic pain; Z98.890 Other specified postprocedural states | CPT/HCPCS: 99212 ==

== ENCOUNTER 2025-06-19 05:56 | Outpatient (REF) | payer OTHER, SELFPAY ==
[2025-06-19 07:11] LABS: Hematocrit 41.5 % (42.0-52.0); Hemoglobin 15.2 g/dl (14.0-18.0); Mean Corpuscular HGB Conc 36.6 g/dl (31.0-36.0); Mean Corpuscular Hemoglobin 33.1 pg (27.0-33.0); Mean Corpuscular Volume 90.4 fL (80.0-98.0); NRBC Abs Auto 0.000 X10*3/uL (0.0-0.012); NRBC Pct Auto 0.0 /100WBC (0.0-0.2); Platelet Count 195 X10*3/uL (160-400); Red Blood Count 4.59 X10*6/uL (4.60-5.80); White Blood Count 4.3 X10*3/uL (4.8-10.8)
[2025-06-19 07:41] LABS: Alanine Aminotransferase 107 U/L (0-40); Albumin Level 4.6 g/dL (3.5-5.0); Alkaline Phosphatase 85 U/L (39-117); Anion Gap 15 (12-20); Aspartate Amino Transferase 53 U/L (5-37); Blood Urea Nitrogen 15 mg/dL (9-16); Calcium 9.4 mg/dL (8.4-10.2); Carbon Dioxide 25 mmol/L (22-29); Chloride 102 mmol/L (96-108); Cholesterol 157 mg/dL (<200); Estimated Glomerular Filt Rate > 60; HDL Cholesterol 40 mg/dL (>40); Potassium 3.6 mmol/L (3.3-5.1); Sodium 138 mmol/L (135-145); Total Protein 7.9 g/dL (6.5-8.0); Triglycerides 78 mg/dL (<150)
== END 2025-06-19 05:57 | disposition home or self-care (01) ==
LOC: HO.LAB 05:56
PROVIDERS: PCP Physician Assistant; Visit Provider Physician Assistant
DX: Z00.00 Encounter for general adult medical examination without abnormal findings (principal); I10 Essential (primary) hypertension; I63.9 Cerebral infarction, unspecified; F51.01 Primary insomnia; K59.03 Drug induced constipation; E66.811 Obesity, class 1; Z68.33 Body mass index [BMI] 33.0-33.9, adult; Z71.3 Dietary counseling and surveillance; Z87.891 Personal history of nicotine dependence
CPT/HCPCS: 36415; 80053; 80061; 85027; 96127; 99396

== ENCOUNTER 2025-06-19 09:12 | Outpatient (AMB) | payer OTHER, SELFPAY ==
--- NOTE | 2025-06-19 09:18 | A.OFFPC_ITS ---
Vital Signs 06/19/25 09:20 Height 5 ft 11 in Weight 237 lb 2 oz BMI 33.1 BP 122/68 Blood Pressure Location Lt brachial Position Sitting Pulse 65 Pulse Source Pulse Oximeter Temp 97.3 F Temp Source Temporal Artery Scan Pulse Oximetry (%) 98 Oxygen Delivery Method Room Air Intake Visit Reasons: Annual Exam Intake Note: Patient is here today for a physical. [employer] Clerk Required: No Food Quality Technician: Not Required per policy Accompanied by: Self / Same As Patient Allergies No Known Allergies Allergy (Verified 06/19/25 09:34) Medication List - Last Reconciled 06/19/25 by Kenneth Wang PA-C amlodipine 10 mg PO DAILY 90 days aspirin 81 mg PO DAILY 90 days atorvastatin 40 mg PO DAILY 90 days blood pressure monitor As directed blood pressure monitor (Blood Pressure Kit) As directed carvedilol 6.25 mg See Protocol PO BID 90 days losartan-hydrochlorothiazide 100-12.5 mg 1 tab PO DAILY 90 days triamcinolone acetonide 0.1% 1 appl topical DAILY 30 days Tobacco use date assessed: 06/19/25 Dental Screening Dental Screen Date: 02/14/25 HPI Annual Exam HPI Details Patient is a 44-year-old male here today for a routine annual physical . Patient's past medical history signif icant for hypertension. CVA, Concerns--> patient reporting constipation as of late, also having difficult time staying asleep. He reports only sleeping 3-4 hours a night. He denies any daytime somnolence. He has tried [id number] sleeping aids though have not been effective for him. Hypertension: Blood pressure today in office acceptable. Blood pressures at home have been 1 teens to 120 systolic. . He continues to stay consistent with the use of his blood pressure medication. H Otherwise patient feels well without any vision issues, headaches, chest discomforts palpitations. .. Hyperlipidemia: Most recent lipid panel showing great control of his total cholesterol though was LDL did elevate above 100. He reports eating more meat and less carbohydrates which may be contributing. He continue his atorvastatin 40 mg. He will try to eat more lean less fatty meats. .. CVA: Had cerebrovascular accident in 10/2023- has made a near full recovery though still has speech issues. He now continues on multiple blood pressure medications and indefinite aspirin therapy. Has done speech therapy here in [place]. .. Class 1 obesity: Has been able to lose significant amount of weight since last office visit. He has been working extensively on his diet. As above patient has gained weight since last office visit. Has been bit inactive due to his knee issue. He plans on getting more physically active to reduce his weight. .. History of alcohol use disorder: Liver enzymes improved though slightly elevated AST . Ultrasound was done previously that did show evidence of fatty liver.. Does admit to drinking a few beers on and Saturdays . Vaccines: Up-to-date with COVID vaccine, UTD with Tdap. Laboratory Tests 06/01/24 06/19/25 06:16 06:07 RBC 4.59 L AST 34 53 H ALT 88 H 107 H LDL Cholesterol, C alc 75 102 H PFSH Medical History Renal artery stenosis Elevated cholesterol CVA (cerebral vascular accident) Hypertension, uncontrolled Surgical History Previous back surgery History of open reduction and internal fixation (ORIF) procedure Family History Father No problems noted. Mother No problems noted. Social History (Updated 06/19/25 @ 09:40 by Kenneth Wang PA-C) Household Members: None Housing: Apartment Are you a primary medicare sales representative to a significant other at home: No Do you presently have visiting nurse or other home services: No Alcohol intake: current Alcohol intake frequency: a few times a month Alcohol type: beer Patient Tobacco Use Status: Former Tobacco user Tobacco use type: Cigarette Years Smoked: 8 e-Cigarette/Vaping Use: Never Used Second Hand Smoke Exposure: Yes Substance Use Type: Marijuana service: No Current occupational status: unemployed Cognitive needs: No Hearing needs: No Vision needs: No Questionnaire PHQ-9 Over the last 2 weeks, how often have you been bothered by any of the following problems? 1. Little interest or pleasure in doing things: not at all 2. Feeling down, depressed, or hopeless: not at all 3. Trouble falling or staying asleep, or sleeping too much: more than half the days 4. Feeling tired or having little energy: not at all 5. Poor appetite or overeating: not at all 6. Feeling bad about yourself - or that you are a failure or have let yourself or your family down: not at all 7. Trouble concentrating on things, such as reading the newspaper or watching television: not at all 8. Moving or speaking so slowly that other people could have noticed. Or the opposite - being so fidgety or restless that you have been moving around a lot more than usual: not at all 9. Thoughts that you would be better off or of hurting yourself in some way: not at all Total score: 2 Depression Screening Interpretation: Negative Depression Screening Done: Yes 33235 - PHQ-9 Billing: Yes Source: Developed by Drs. Lefty Mitchell, Kassi Robertson, Maksim Cannon and colleagues, with an educational lalo from [employer]. Thrive Questionnaire Date Thrive assessed: 06/19/25 I am a: Patient What is your living situation today?: I have a steady place to live Within the past 12 months, did the food you bought not last and you didn't have the money to get more?: Never true Within the past 12 months, did you worry whether your food would run out before you got money to buy more?: Never true Do you have trouble paying for medicines?: No Do you have trouble getting transportation to medical appointments?: No Do you have trouble paying your heating and electricity bill?: No Do you have trouble taking care of your child, family member or friend?: No Do you have trouble with day-to-day activities such as bathing, preparing meals, shopping, managing finances, etc.?: No Are you currently unemployed and looking for a job?: I choose not to answer this question Are you interested in more education?: No Please select the resources that you would like help with: None Currently or been in a relationship where the following occur: I choose not to answer THRIVE Score: 0 AUDIT C Alcohol Use Questionnaire (AUDIT-C) 1. How often do you have a drink containing alcohol?: Monthly or less Total Score: 1 ABDIAZIZ-7 AMB Questionnaire ABDIAZIZ-7 Date ABDIAZIZ - 7 assessed: 06/19/25 Feeling nervous, anxious, or on edge: 0 = Not at all Not being able to stop or control worryin = Not at all Worrying too much about different things: 0 = Not at all Trouble relaxin = Not at all Being so restless that it is hard to sit still: 0 = Not at all Becoming easily annoyed or irritable: 0 = Not at all Feeling afraid as if something awful might happen: 0 = Not at all Total ABDIAZIZ-7 score (0-4 normal; 5-9 mild; 10-14 moderate; 15-21 severe): 0 Source: Developed by Drs. Lefty Mitchell, Kassi Robertson, Maksim Cannon and colleagues, with an educational lalo from [employer]. ABDIAZIZ-7 Assessment Billing ABDIAZIZ-7 Assessment Tool: ABDIAZIZ-7 Assessment 83782 Review of Systems Const Denies body aches, Denies chills, Denies excessive sweating, Denies fatigue, De nies fever(s) and Denies headache(s) Eyes Denies blurry vision ENT Denies dysphagia, Denies vertigo, Denies dizziness, Denies headache(s), Denies hearing loss and Denies tinnitus Card Denies chest pain, Denies chest pain with activity, Denies syncope, Denies irregular heart rhythm and Denies dyspnea Resp Denies chest congestion, Denies cough, Denies hemoptysis, Denies dyspnea and Denies wheezing GI Denies abdominal pain, Denies melena, Denies hematochezia, Denies coffee ground emesis, Denies dysphagia, Denies diarrhea, Denies nausea and Denies vomiting Denies difficulty urinating, Denies dysuria, Denies urinary frequency, Denies urinary hesitancy and Denies urinary urgency Musc Denies arthralgias, Denies limited range of motion, Denies muscle cramps and Denies muscle weakness Skin/Breast Denies rash and Denies skin ulcer Neuro Denies Abnormal speech present, Denies confusion, Denies vertigo, Denies dizziness, Denies syncope, Denies headache(s), Denies memory loss and Denies seizure-like activity Psych Denies anxiety, Denies confusion, Denies depression, Denies memory loss, Denies panic attacks and Denies paranoia Endo Denies excessive sweating, Denies fatigue, Denies flushing, Denies polydipsia and Denies polyuria Aller/Immun Denies wheezing Physical exam (Primary Care) Vital Signs: Last Vital Signs Temp 97.3 F 06/19/25 09:20 Pulse 65 06/19/25 09:20 BP 122/68 06/19/25 09:20 Pulse Ox 98 06/19/25 09:20 Oxygen Delivery Method Room Air 06/19/25 09:20 BMI result Body Mass Index 33.1 BMI Assessment/Plan discussion: High BMI High, discussed plan: lifestyle, weight reduction, dietary and physical activity Tobacco/Smoking Status: Tobacco use Status Tobacco use date assessed 06/19/25 06/19/25 09:24 Patient Tobacco Use Status Former Tobacco user 06/19/25 09:24 Tobacco use type Cigarette 06/19/25 09:24 e-Cigarette/Vaping Use Never Used 06/19/25 09:24 PHQ-9: PHQ-9 Score PHQ-9: Total score 2 06/19/25 09:24 Depression Screening Interpretation: Negative Thrive Assessment: Date of Thrive Assessment Date Thrive assessed 06/19/25 06/19/25 09:24 Currently or been in a relationship where the following occur: I choose not to answer Const General: cooperative, comfortable, no acute distress, alert and awake; No confusion Orientation/consciousness: oriented to person, oriented to place, patient oriented x3 and No confusion HENMT Head: Yes normocephalic Ears: external ears normal and TM's normal bilaterally Face and sinus: No sinus tenderness Mouth: Normal oral and palatal mucosa present and tongue normal Teeth and gingiva: dentition normal and gingiva normal Throat: Yes posterior oropharynx normal, Yes tonsils normal and Yes uvula midline Eyes Conjunctivae: conjunctivae normal Sclerae: sclerae normal Pupils: Equal, round and reactive pupils present EOM: EOMs intact bilaterally Direct Ophthalmoscopy: No no photophobia Neck Neck: Yes no lymphadenopathy, No tender and Yes no JVD Thyroid: Thyroid normal Carotids: no bruits Chest Chest palpation & inspection: no tenderness Resp Effort & Inspection: normal respiratory effort, no audible wheezes, not labored and no stridor Auscultation: no crackles, no rales, no rhonchi and no wheezes Cardio Jugular venous distension: no JVD Rate: regular rate, not bradycardic and not tachycardic Rhythm: regular rhythm Bruits: no carotid bruits Peripheral pulses: Peripheral pulses 2+ throughout GI Inspection: Yes normal to inspection, No abdominal wall ecchymosis and No visible herniation Palpation (GI): Soft to palpation, nontender, no guarding, not rigid and No hepatosplenomegaly present Auscultation: normoactive bowel sounds General: Yes no CVA tenderness Back/Spine/Pelvis Back: no CVA tenderness and No back tenderness Cervical Spine: cervical ROM normal Thoracic/Lumbar Spine: thoracic and lumbar spine normal to inspection, straight leg raise negative bilaterally, No thoraco-lumbar ROM limited and No lumbar spinal tenderness Skin Lesions: no lesions Rashes: no rashes Wounds: no wounds Neuro General: oriented to person, oriented to place, patient oriented x3, CN's II-XI intact bilaterally and No confusion Cranial nerves: Yes Equal, round and reactive pupils present and Yes Normal accommodation reflex present Cognition (Neuro): normal cognition Speech: No Abnormal speech present Gait exam (Neuro): Normal gait present Motor exam (neuro): 5/5 motor strength present throughout Extrem Right upper extremity: full ROM; no cyanosis Left upper extremity: full ROM; no cyanosis Right lower extremity: no edema Left lower extremity: no edema Psych Appearance: grossly normal Mental Status: mental status grossly normal Affect: normal affect Attitude: cooperative Thought process: Normal thought process present Coding Level of Care Code Est Pt Prev Care 40-64y(39627) Diagnoses Annual physical exam Z00.00 Cerebrovascular accident I63.9 CVA mechanism: unspecified Primary hypertension I10 Hypertension type: primary hypertension Primary insomnia F51.01 Insomnia type: primary Drug-induced constipation K59.03 Constipation type: drug induced constipation Class 1 obesity E66.811 Additional Codes PHQ-9 - 80951 - PHQ-9 Billing: Yes ([id number]) ABDIAZIZ-7 Assessment Billing - ABDIAZIZ-7 Assessment Tool: ABDIAZIZ-7 Assessment 24530 ([id number]) Assessment & Plan Assessment & Plan (1) Annual physical exam: Code(s): Z00.00 - Encounter for general adult medical examination without abnormal fi ndings Category: Medical Plan: As per HPI (2) Cerebrovascular accident: Code(s): I63.9 - Cerebral infarction, unspecified Category: Medical Qualifiers: CVA mechanism: unspecified Qualified Code(s): I63.9 - Cerebral infarction, unspecified Plan: Patient has suffered a stroke in 2023 and has dysarthria as a long-lasting effect. Has done feet speech therapy. Continue to risk modify trying to reduce blood pressure, cholesterol and contin ue on aspirin indefinitely. (3) HTN (hypertension): Code(s): I10 - Essential (primary) hypertension Category: Medical Qualifiers: Hypertension type: primary hypertension Qualified Code(s): I10 - Essential (primary) hypertension Plan: Patient's blood pressure acceptable today in office. Has been able to reduce his weight since last office visit. He is consistent with using his with a hypertensive medication. Advised to continue monitoring his blood pressure and work on weight reduction and low-sodium diet. Will blood pressure is to be below 140/90 (4) Insomnia: Code(s): G47.00 - Insomnia, unspecified Category: Medical Qualifiers: Insomnia type: primary Qualified Code(s): F51.01 - Primary insomnia Plan: Patient willing to try prescription sleeping medication. Thus will try hydroxyzine 25 mg half an hour before bed to help induce sleep. (5) Constipation: Code(s): K59.00 - Constipation, unspecified Category: Medical Qualifiers: Constipation type: drug induced constipation Qualified Code(s): K59.03 - Drug induced constipation Plan: Loco has been experiencing constipation as of late. He reports going 3 or 4 days without bowel movements. He believes his constipation is related to his medication. Was on docusate in the past which did relieve his constipation would like to restart this medication temporarily. (6) Class 1 obesity: Code(s): E66.811 - Obesity, class 1 Category: Medical Plan: Patient does understand his BMI is over 30 and will continue working on being more physically active and adapting to better eating habits to reduce his weight Orders: Orders Complete Blood Count no Diff Today I63.9 - Cerebral infarction, unspecified Lipid Panel Today I63.9 - Cerebral infarction, unspecified Comprehensive [place]. Panel Fast Today I63.9 - Cerebral infarction, unspecified Medications: New docusate sodium 100 mg PO DAILY 30 caps 1RF 30 days K59.00 - Constipation, unspecified hydroxyzine HCl 25 mg PO BEDTIME 30 tabs 2RF 30 days G47.00 - Insomnia, unspecified Patient Instructions: Goal: Blood pressure to remain below 140/90, LDL to be below 100 Barriers: Adherence to physical activity and healthy eating habits
[2025-06-19 09:20] VITALS: BP 122/68; PULSE 65; TEMP 36.3; O2SAT 98; BMI 33.1
== END 2025-06-19 09:57 | disposition home or self-care (01) ==
LOC: HO.HMCH 09:13
PROVIDERS: PCP Physician Assistant; Visit Provider Physician Assistant
DX: Z00.00 Encounter for general adult medical examination without abnormal findings (principal); I63.9 Cerebral infarction, unspecified; E66.811 Obesity, class 1; Z68.33 Body mass index [BMI] 33.0-33.9, adult; I10 Essential (primary) hypertension; F51.01 Primary insomnia; K59.03 Drug induced constipation